=== PATIENT | female | born 1960 | race Caucasian/White ===

== ENCOUNTER 2018-09-26 14:05 | Emergency (ER) | payer MEDICAID, SELFPAY ==
[~2018-09-26] VITALS: Ht 162.6 cm; Wt 61.0 kg
[~2018-09-26 14:05] MED LIST: CHLO25CA10 PO; FLUO15OI15 TP; MACROBID PO; NITR-60 PO; NO HOME MEDS; PHEN-786 PO
[2018-09-26] MEDS ORDERED: LORazepam 1 MG tablet PO ONE (14:25)
[2018-09-26 14:57] LABS: BASOPHILS # (AUTO) 0.1 X10'3 (0-0.2); BASOPHILS % (AUTO) 0.7 % (0-1); EOSINOPHILS % (AUTO) 0 % (0-6); HEMATOCRIT 39.7 % (35.0-45.0); HEMOGLOBIN 12.7 g/dl (12.0-16.0); LYMPHOCYTES % (AUTO) 10.1 % (21-51); MEAN CORPUSCULAR HEMOGLOBIN 29.6 PG (27.0-31.0); MEAN CORPUSCULAR VOLUME 92.4 FL (78-98); MEAN PLATELET VOLUME 9.8 FL (7.4-10.4); MONOCYTES # (AUTO) 0.6 X10'3 (0-0.9); MONOCYTES % (AUTO) 6.2 % (2-12); NEUTROPHILS # (AUTO) 8.4 X10'3 (1.8-7.7); PLATELET COUNT 183 X10'3 (140-440); RED CELL DISTRIBUTION WIDTH 18.9 % (11.5-14.5); WHITE BLOOD COUNT 10.1 X10'3 (4.5-11.0)
[2018-09-26 14:58] LABS: CLARITY,URINE CLEAR (Clear); COLOR,URINE YELLOW (Yellow); GLUCOSE, URINE NEGATIVE (Neg); KETONES,URINE 15 mg/dl (Neg); LEUKOCYTE ESTERASE ,URINE NEGATIVE (Neg); NITRITES, URINE NEGATIVE (Neg); OCCULT BLOOD,URINE NEGATIVE (Neg); PH,URINE 5.5 (4.8-8.0); PROTEIN,URINE NEGATIVE (Neg); UROBILINOGEN,URINE 0.2 E.U/dL (0.2-1.0)
[2018-09-26 15:01] LABS: UA COLLECTION TYPE NON-SPECIFIED
[2018-09-26 15:12] LABS: ALANINE AMINOTRANSFERASE 28 U/L (12-78); ALBUMIN 3.5 G/DL (3.4-5.0); ALBUMIN/GLOBULIN RATIO 1.1 (1.1-1.5); ALKALINE PHOSPHATASE 88 IU/L (46-116); ANION GAP 19 (8-16); ASPARTATE AMINO TRANSFERASE 67 U/L (10-37); BILIRUBIN,TOTAL 0.4 MG/DL (0.1-1.0); BLOOD UREA NITROGEN 15 MG/DL (7-18); BUN/CREATININE RATIO 16.7 (6.6-38.0); CALCIUM 8.4 MG/DL (8.5-10.1); CHLORIDE 100 MMOL/L (99-107); ETHANOL 0.103 GM/DL (0.0-0.010); POTASSIUM 3.6 MMOL/L (3.5-5.1); SODIUM 138 MMOL/L (135-145); TOTAL CARBON DIOXIDE 19.5 MMOL/L (24-32); TOTAL PROTEIN 6.6 G/DL (6.4-8.2); eGFR 64 ML/MIN
[2018-09-26 15:12] LABS: URINE AMPHETAMINE SCREEN NEGATIVE (Neg); URINE BARBITUATE SCREEN NEGATIVE (Neg); URINE BENZODIAZEPINES SCREEN NEGATIVE (Neg); URINE CANNABINOID SCREEN NEGATIVE (Neg); URINE COCAINE SCREEN NEGATIVE (Neg); URINE METHADONE SCREEN NEGATIVE (Neg); URINE OPIATE SCREEN NEGATIVE (Neg); URINE PHENCYCLIDINE SCREEN NEGATIVE (Neg)
[2018-09-26 15:14] LABS: GLUCOSE 39 MG/DL (70-104)
--- NOTE | 2018-09-26 15:17 | NUR ---
PT BG 39, PT GIVEN SANDWICH AND ORANGE JUICE PER DR DIAL.
[2018-09-26 16:22] VITALS: BP 131/84
== END 2018-09-26 16:25 | disposition home or self-care (01) ==
LOC: ER 14:06
DX: E16.2 Hypoglycemia, unspecified (principal); F10.920 Alcohol use, unspecified with intoxication, uncomplicated; G62.9 Polyneuropathy, unspecified; R56.9 Unspecified convulsions; G89.29 Other chronic pain; Z90.710 Acquired absence of both cervix and uterus; Z98.890 Other specified postprocedural states; Z60.2 Problems related to living alone; Z56.0 Unemployment, unspecified; Z59.0 Homelessness; Z88.0 Allergy status to penicillin; Z88.2 Allergy status to sulfonamides; Z88.8 Allergy status to other drugs, medicaments and biological substances; Z79.899 Other long term (current) drug therapy; Y90.0 Blood alcohol level of less than 20 mg/100 ml
CPT/HCPCS: 36415; 80053; 80305; 80320; 81003; 82948; 85025; 99283

== ENCOUNTER 2018-10-19 22:32 | Emergency (ER) | payer MEDICAID ==
[~2018-10-19] VITALS: Ht 162.6 cm; Wt 63.0 kg
--- NOTE | 2018-10-19 23:09 | NUR ---
Patient slurring words, has been drinking doesn't want to answer questions.
[2018-10-19] MEDS ORDERED: normal saline 1000ML IV soln IVB ONE (23:20)
[2018-10-19 23:30] VITALS: BP 106/63
[2018-10-19 23:45] LABS: HEMOGLOBIN 14.1 g/dl (12.0-16.0); MEAN CORPUSCULAR VOLUME 92.8 FL (78-98); MEAN PLATELET VOLUME 10.2 FL (7.4-10.4)
[2018-10-19 23:47] LABS: ALBUMIN 3.1 G/DL (3.4-5.0); ANION GAP 19 (8-16); BILIRUBIN,TOTAL 0.3 MG/DL (0.1-1.0); BLOOD UREA NITROGEN 11 MG/DL (7-18); BUN/CREATININE RATIO 16.2 (6.6-38.0); CALCIUM 7.9 MG/DL (8.5-10.1); CHLORIDE 106 MMOL/L (99-107); CREATININE 0.68 MG/DL (0.40-0.90); GLUCOSE 85 MG/DL (70-104); HEMATOCRIT 43.7 % (35.0-45.0); MEAN CORPUSCULAR HGB CONC 32.3 g/dL (33.0-36.5); PLATELET COUNT 162 X10'3 (140-440); POTASSIUM 3.2 MMOL/L (3.5-5.1); RED BLOOD COUNT 4.71 X10'6 (4.20-5.60); RED CELL DISTRIBUTION WIDTH 20.1 % (11.5-14.5); SODIUM 149 MMOL/L (135-145); TOTAL CARBON DIOXIDE 24.4 MMOL/L (24-32); TOTAL PROTEIN 6.4 G/DL (6.4-8.2); WHITE BLOOD COUNT 6.9 X10'3 (4.5-11.0); eGFR 89 ML/MIN
[2018-10-19 23:48] LABS: ALANINE AMINOTRANSFERASE 47 U/L (12-78); ALBUMIN/GLOBULIN RATIO 0.9 (1.1-1.5); ALKALINE PHOSPHATASE 102 IU/L (46-116); ASPARTATE AMINO TRANSFERASE 42 U/L (10-37)
[2018-10-19 23:50] LABS: ETHANOL 0.332 GM/DL (0.0-0.010)
[2018-10-19] MEDS ORDERED: potassium Cl 20 mEq SR tablet PO STA (23:54)
--- NOTE | 2018-10-20 | NUR ---
Patient more alert, less hostile. Started IV and fluid infusion.
[2018-10-20 00:05] LABS: TOTAL CELLS COUNTED 100
[2018-10-20 00:06] LABS: ANISOCYTOSIS 3+; PLATELET ESTIMATE NORMAL
[2018-10-20] MEDS ORDERED: ondansetron 4mg rapidly disintigrating tab PO ONE (00:20)
--- NOTE | 2018-10-20 00:44 | NUR ---
Patient refusing to gait check with me, she is mad that she is being discharged as she is homeless. Says she has a restraining order with [facility] against and we have to honor it. I told her ok the taxi [facility] or [facility]. She will not get out of bed, JLOYNN Baldwin is aware. Security standby will be ordered.
== END 2018-10-20 00:54 | disposition home or self-care (01) ==
LOC: ER 22:32
DX: F10.129 Alcohol abuse with intoxication, unspecified (principal); R45.851 Suicidal ideations; G62.1 Alcoholic polyneuropathy; G89.29 Other chronic pain; F41.9 Anxiety disorder, unspecified; Z86.69 Personal history of other diseases of the nervous system and sense organs; Z90.710 Acquired absence of both cervix and uterus; Z98.890 Other specified postprocedural states; Z56.0 Unemployment, unspecified; Z60.2 Problems related to living alone; Z59.0 Homelessness; Z88.0 Allergy status to penicillin; Z88.2 Allergy status to sulfonamides; Z88.8 Allergy status to other drugs, medicaments and biological substances; Z79.899 Other long term (current) drug therapy; Y90.0 Blood alcohol level of less than 20 mg/100 ml
CPT/HCPCS: 36415; 80053; 80320; 85025; 99284; J2405; J7030

== ENCOUNTER 2018-11-10 13:38 | Emergency (ER) | payer MEDICAID ==
[~2018-11-10] VITALS: Ht 160 cm; Wt 13.6 kg
[2018-11-10 13:46] VITALS: BP 109/53
--- NOTE | 2018-11-10 14:41 | NUR ---
pt able to ambulate around the unit independently
[2018-11-10] MEDS ORDERED: GABA-532 PO (15:06)
[2018-11-10] MEDS ORDERED: LEVE750T6 PO (15:07)
--- NOTE | 2018-11-10 15:43 | NUR ---
PT WALKED TO BATHROOM, STOOD AND WALKED INDEPENDENTLY WITH PATRIA JORGENSEN STANDBY ASSIST, PT IS A LITTLE UNSTEADY, PT WAITING FOR [facility] MEDICATIONS TO BE FILLED. AND THEN TO GO TO [facility] FOR DETOX
== END 2018-11-10 16:27 | disposition home or self-care (01) ==
LOC: ER 13:38
DX: F10.99 Alcohol use, unspecified with unspecified alcohol-induced disorder (principal); R47.81 Slurred speech; G62.9 Polyneuropathy, unspecified; G89.29 Other chronic pain; Z86.69 Personal history of other diseases of the nervous system and sense organs; Z90.710 Acquired absence of both cervix and uterus; Z98.890 Other specified postprocedural states; Z60.2 Problems related to living alone; Z59.0 Homelessness; Z56.0 Unemployment, unspecified; Z88.0 Allergy status to penicillin; Z88.2 Allergy status to sulfonamides; Z88.8 Allergy status to other drugs, medicaments and biological substances; Z79.899 Other long term (current) drug therapy; Y90.9 Presence of alcohol in blood, level not specified
CPT/HCPCS: 99283

== ENCOUNTER 2019-01-03 08:43 | Emergency (ER) | payer MEDICAID ==
[~2019-01-03] VITALS: Ht 162.6 cm; Wt 70.0 kg
[~2019-01-03 08:43] MED LIST changes: +GABA-532 PO; +LEVE750T6 PO
[2019-01-03] MEDS ORDERED: normal saline 1000ML IV soln IV ONE (08:55)
[2019-01-03] MEDS ORDERED: magnesium 2GM in 50ml NS 50 ML IV ONE (08:55)
[2019-01-03] MEDS ORDERED: LORazepam 2 mg/ml vial IV ONE (08:55)
[2019-01-03] MEDS ORDERED: folic acid 1mg/0.2ml inj IV ONE (08:55)
[2019-01-03] MEDS ORDERED: thiamine 100mg/ml 2ml inj. IV ONE (08:55)
[2019-01-03] MEDS ORDERED: ondansetron/PF 4mg/2ml inj IV ONE (08:55)
[2019-01-03 09:44] LABS: ALANINE AMINOTRANSFERASE 18 U/L (12-78); ALBUMIN 3.7 G/DL (3.4-5.0); ALBUMIN/GLOBULIN RATIO 1.2 (1.1-1.5); ALKALINE PHOSPHATASE 111 IU/L (46-116); ANION GAP 11 (8-16); ASPARTATE AMINO TRANSFERASE 17 U/L (10-37); BLOOD UREA NITROGEN 18 MG/DL (7-18); BUN/CREATININE RATIO 24.7 (6.6-38.0); CALCIUM 8.4 MG/DL (8.5-10.1); CHLORIDE 105 MMOL/L (99-107); CREATININE 0.73 MG/DL (0.40-0.90); ETHANOL < 0.010 GM/DL (0.0-0.010); GLUCOSE 122 MG/DL (70-104); POTASSIUM 3.8 MMOL/L (3.5-5.1); SODIUM 143 MMOL/L (135-145); TOTAL CARBON DIOXIDE 26.9 MMOL/L (24-32); TOTAL PROTEIN 6.9 G/DL (6.4-8.2); eGFR 82 ML/MIN
[2019-01-03 09:46] LABS: EOSINOPHILS # (AUTO) 0.2 X10'3 (0-0.9); HEMOGLOBIN 13.1 g/dl (12.0-16.0); LYMPHOCYTES # (AUTO) 1.6 X10'3 (1.1-4.8); NEUTROPHILS # (AUTO) 3.8 X10'3 (1.8-7.7)
[2019-01-03 10:13] LABS: HEMATOCRIT 39.3 % (35.0-45.0); MEAN CORPUSCULAR HEMOGLOBIN 29.7 PG (27.0-31.0); MEAN CORPUSCULAR HGB CONC 33.3 g/dL (33.0-36.5); PLATELET COUNT 169 X10'3 (140-440); RED BLOOD COUNT 4.42 X10'6 (4.20-5.60); RED CELL DISTRIBUTION WIDTH 17.2 % (11.5-14.5); WHITE BLOOD COUNT 5.9 X10'3 (4.5-11.0)
[2019-01-03 10:14] LABS: BASOPHILS # (AUTO) 0.1 X10'3 (0-0.2); BASOPHILS % (AUTO) 2.3 % (0-1); EOSINOPHILS % (AUTO) 2.7 % (0-6); LYMPHOCYTES % (AUTO) 26.8 % (21-51); MEAN PLATELET VOLUME 10.1 FL (7.4-10.4); MONOCYTES # (AUTO) 0.3 X10'3 (0-0.9); NEUTROPHILS % (AUTO) 63.2 % (42-75)
[2019-01-03 10:31] LABS: ANISOCYTOSIS 1+; PLATELET ESTIMATE NORMAL; TOTAL CELLS COUNTED 100
[2019-01-03] MEDS ORDERED: ONDA4TAB6 PO (10:37)
[2019-01-03 11:02] VITALS: BP 160/93
== END 2019-01-03 12:52 | disposition home or self-care (01) ==
LOC: ER 08:44
DX: F10.99 Alcohol use, unspecified with unspecified alcohol-induced disorder (principal); R11.2 Nausea with vomiting, unspecified; R53.1 Weakness; G62.9 Polyneuropathy, unspecified; Z87.11 Personal history of peptic ulcer disease; G89.29 Other chronic pain; Z90.710 Acquired absence of both cervix and uterus; Z98.890 Other specified postprocedural states; Z56.0 Unemployment, unspecified; Z59.0 Homelessness; Z88.0 Allergy status to penicillin; Z88.2 Allergy status to sulfonamides; Z88.8 Allergy status to other drugs, medicaments and biological substances; Z79.899 Other long term (current) drug therapy
CPT/HCPCS: 36415; 70450; 71045; 80053; 80320; 82140; 85025; 85610; 93005; 96365; 96375; 99284; J2060; J2405; J3411; J3475; J3490; J7030

== ENCOUNTER 2019-01-13 13:37 | Emergency (ER) | payer MEDICAID ==
[~2019-01-13] VITALS: Ht 162.6 cm; Wt 61.0 kg
[~2019-01-13 13:37] MED LIST changes: +ONDA4TAB6 PO
--- NOTE | 2019-01-13 13:50 | NUR ---
Pt. admitted to [facility] brought in by [employer] [facility] on 5150 after pt. came in intoxicated and stating she was suicidal with plan to OD on medication. Pt. smells strongly of ETOH. Labs, urnine, and diet ordered for pt. Pt. reports that she had previously been in [place] for substance abuse treatment and that while she was in sober living she had trouble with her roommates and left. Pt. is focused on discharged and getting back to [place] for substance abuse treatment. Addendum: 01/13/19 at 1800 by KRISTIAN Pt. is calm and cooperative. A&Ox4. VSS.
[2019-01-13 14:40] LABS: CLARITY,URINE CLEAR (Clear); COLOR,URINE YELLOW (Yellow); GLUCOSE, URINE NEGATIVE (Neg); KETONES,URINE NEGATIVE (Neg); LEUKOCYTE ESTERASE ,URINE NEGATIVE (Neg); NITRITES, URINE NEGATIVE (Neg); OCCULT BLOOD,URINE NEGATIVE (Neg); PROTEIN,URINE NEGATIVE (Neg); URINE HCG NEGATIVE (NEG)
[2019-01-13 14:40] LABS: BASOPHILS # (AUTO) 0.2 X10'3 (0-0.2); EOSINOPHILS # (AUTO) 0.1 X10'3 (0-0.9); HEMATOCRIT 34.3 % (35.0-45.0); NEUTROPHILS # (AUTO) 3.4 X10'3 (1.8-7.7); PLATELET COUNT 189 X10'3 (140-440); WHITE BLOOD COUNT 6.4 X10'3 (4.5-11.0)
[2019-01-13 14:42] LABS: UA COLLECTION TYPE CLN CATCH MIDSTREAM
[2019-01-13 14:42] LABS: BASOPHILS % (AUTO) 3.1 % (0-1); EOSINOPHILS % (AUTO) 1.7 % (0-6); HEMOGLOBIN 11.5 g/dl (12.0-16.0); LYMPHOCYTES # (AUTO) 2.3 X10'3 (1.1-4.8); LYMPHOCYTES % (AUTO) 35.4 % (21-51); MEAN CORPUSCULAR HEMOGLOBIN 29.7 PG (27.0-31.0); MEAN CORPUSCULAR HGB CONC 33.5 g/dL (33.0-36.5); MEAN CORPUSCULAR VOLUME 88.6 FL (78-98); MEAN PLATELET VOLUME 9.7 FL (7.4-10.4); MONOCYTES # (AUTO) 0.4 X10'3 (0-0.9); NEUTROPHILS % (AUTO) 52.8 % (42-75); RED BLOOD COUNT 3.87 X10'6 (4.20-5.60); RED CELL DISTRIBUTION WIDTH 18.3 % (11.5-14.5)
[2019-01-13 14:49] LABS: URINE AMPHETAMINE SCREEN NEGATIVE (Neg); URINE BARBITUATE SCREEN NEGATIVE (Neg); URINE BENZODIAZEPINES SCREEN POSITIVE (Neg); URINE CANNABINOID SCREEN NEGATIVE (Neg); URINE COCAINE SCREEN NEGATIVE (Neg); URINE METHADONE SCREEN NEGATIVE (Neg); URINE OPIATE SCREEN NEGATIVE (Neg); URINE PHENCYCLIDINE SCREEN NEGATIVE (Neg)
[2019-01-13 15:01] LABS: ALANINE AMINOTRANSFERASE 22 U/L (12-78); ALBUMIN 3.1 G/DL (3.4-5.0); ALBUMIN/GLOBULIN RATIO 1.1 (1.1-1.5); ALKALINE PHOSPHATASE 110 IU/L (46-116); ANION GAP 9 (8-16); ASPARTATE AMINO TRANSFERASE 25 U/L (10-37); BILIRUBIN,TOTAL 0.5 MG/DL (0.1-1.0); BLOOD UREA NITROGEN 8 MG/DL (7-18); BUN/CREATININE RATIO 12.1 (6.6-38.0); CALCIUM 7.9 MG/DL (8.5-10.1); CHLORIDE 111 MMOL/L (99-107); CREATININE 0.66 MG/DL (0.40-0.90); ETHANOL 0.224 GM/DL (0.0-0.010); GLUCOSE 108 MG/DL (70-104); SODIUM 150 MMOL/L (135-145); TOTAL CARBON DIOXIDE 29.6 MMOL/L (24-32); TOTAL PROTEIN 5.8 G/DL (6.4-8.2); eGFR > 90 ML/MIN
[2019-01-13] MEDS ORDERED: PANT-47 PO (15:01)
[2019-01-13] MEDS ORDERED: CITA20TA28 PO (15:01)
[2019-01-13] MEDS ORDERED: potassium Cl 20 mEq SR tablet PO STA (15:06)
[2019-01-13 15:10] LABS: ANISOCYTOSIS 2+; PLATELET ESTIMATE NORMAL
--- NOTE | 2019-01-13 15:15 | NUR ---
RN received critical lab result, K+ of 3.0 and reported it to pt.'s provider. Pt. given K-Dur tab 40meq
[2019-01-13] MEDS ORDERED: GABA800T11 PO (15:47)
[2019-01-13] MEDS ORDERED: MELO-102 PO ×2 (15:54→16:16)
--- NOTE | 2019-01-13 16:00 | NUR ---
Pt. sleeping, breathing with normal rate and rythm.
[2019-01-13] MEDS ORDERED: NALT50TA PO (16:14)
[2019-01-13] MEDS ORDERED: ERGO500056 PO (16:14)
[2019-01-13] MEDS ORDERED: BUSP10TA11 PO (16:14)
[2019-01-13] MEDS ORDERED: LEVE750T6 PO (16:30)
--- NOTE | 2019-01-13 16:30 | NUR ---
RN received order for q1hr vitals from Dr. Harvey and to monitor for S&S of withdrawal. specifically to monitor patient for increased HR.
[2019-01-13] MEDS ORDERED: MELOXICAM 15 MG TAB PO PRN (17:05)
[2019-01-13] MEDS: CITALOpram 10mg tablet PO SCH (17:31)
--- NOTE | 2019-01-13 18:00 | NUR ---
Pt. awake to use the bathroom. Pt. requesting medication for sleep as well as nausea. Pt. asks, "I'm not going to stay here for 72 hours am I?" RN informed pt. of need to montior for S&S of withdrawal. Pt.'s HR 94. Pt. assessed for withdrawal, pt. has no tremors, no diaphoresis, pt. denies audio visual hallucinations. Pt. reports SI without a plan, pt. states, "I don't want to be alive". Pt. appears depressed.
--- NOTE | 2019-01-13 18:30 | NUR ---
Assumed care from JOSLYN Chapin. Patient is awake, cooperative, and well oriented. Affect is flat. Patient complains of depression and suicidal ideation. Patients voice is quiet. The rate is normal with a regular rhythm. This patient complains of suicidal ideation with a plan to overdose. Patient denies homicidal ideation. Patient has a history of seizures with uncontrolled alcohol withdraw. Plan to utelize ativan a needed. This grant writer will consult with ER .
--- NOTE | 2019-01-13 19:20 | NUR ---
Patient has eaten her full meal. She is resting quietly, some anxiety present. Q15 minute roundings are being done for patient safety. Patient bed is in full view from the nursing station. The patient is advised by this internal communications writer that she is in a safe place.
[2019-01-13] MEDS ORDERED: LORazepam 1 MG tablet PO ONE (21:15)
[2019-01-13] MEDS: busPIRone 5mg tablet PO SCH (21:39)
[2019-01-13] MEDS: gabapentin 400mg capsule PO SCH (21:39)
[2019-01-13] MEDS: levetiracetam 250mg tablet PO SCH (21:39)
--- NOTE | 2019-01-13 22:00 | NUR ---
Patient is sleeping quietly. Ativan was given for anxiety and prevention of alcohol withdrawl. Patient is medication compliant.
--- NOTE | 2019-01-13 23:20 | NUR ---
Patient is sleeping quietly.
--- NOTE | 2019-01-14 03:11 | NUR ---
Patient is up, ambulates to bathroom to void. Returns to bed to sleep.
--- NOTE | 2019-01-14 05:36 | NUR ---
Patient is sleeping quietly in view from the nursing station.
--- NOTE | 2019-01-14 07:00 | NUR ---
Pt. asleep in bed. Pt. has normal rate and rhythm of respirations.
[2019-01-14] MEDS ORDERED: naltrexone 50mg tablet PO SCH (08:00)
[2019-01-14] MEDS ORDERED: pantoprazole 40mg Tablet.DR PO SCH (08:00)
[2019-01-14] MEDS: busPIRone 5mg tablet PO SCH (08:54)
[2019-01-14] MEDS: CITALOpram 10mg tablet PO SCH (08:54)
[2019-01-14] MEDS: levetiracetam 250mg tablet PO SCH (08:55)
[2019-01-14] MEDS: gabapentin 400mg capsule PO SCH (08:55)
--- NOTE | 2019-01-14 09:00 | NUR ---
Pt. awake in bed and speaking with social service manager regarding discharge plans. Pt. ate breakfast and took medications. Pt. is A&Ox4. Pt. denies SI/HI, A/V H. Pt. is cooperative, sitting in bed. Pt. has slight tremors in hands, pt. also reports increased anxiety otherwise no S&S of etoh withdrawal.
[2019-01-14] MEDS ORDERED: LORazepam 1 MG tablet PO PRN (10:25)
--- NOTE | 2019-01-14 11:00 | NUR ---
Pt. awake and reading in her bed. Pt. reports she feels slightly less anxious after receiving ativan 1mg po. Pt. is hoping to be discharged to [place] to start substance abuse treatment.
--- NOTE | 2019-01-14 12:45 | NUR ---
Pt. discharged to [facility] to begin substance abuse treatment. Pt. picked up by [employer] truck driver David Botello. Pt. denies SI/HI, A/V H. Pt. is A&Ox4. Pt. calm and cooperative and in no apparent psychological or emotional distress. Pt. denies ETOH cravings. RN discussed F/U care with pt. and pt. verbalizes understanding. Pt. received all belongings.
[2019-01-14 12:51] VITALS: BP 113/99
[2019-01-14] MEDS ORDERED: traZODone 50mg tablet PO SCH (20:00)
[2019-01-15] MEDS ORDERED: vitamin D (cholecalciferol) 1,000 unit tablet PO SCH (08:00)
== END 2019-01-14 13:00 | disposition home or self-care (01) ==
LOC: ER 13:38
DX: F32.9 Major depressive disorder, single episode, unspecified (principal); F10.129 Alcohol abuse with intoxication, unspecified; E87.0 Hyperosmolality and hypernatremia; E87.6 Hypokalemia; G89.29 Other chronic pain; Z90.710 Acquired absence of both cervix and uterus; Z98.890 Other specified postprocedural states; Z88.0 Allergy status to penicillin; Z88.2 Allergy status to sulfonamides; Z88.8 Allergy status to other drugs, medicaments and biological substances; Z79.899 Other long term (current) drug therapy; Z56.0 Unemployment, unspecified; Z59.0 Homelessness; Z60.2 Problems related to living alone
CPT/HCPCS: 36415; 80053; 80305; 80320; 81003; 81025; 84443; 85025; 99285

== ENCOUNTER 2019-01-15 14:06 | Emergency (ER) | payer MEDICAID ==
[~2019-01-15] VITALS: Ht 162.6 cm; Wt 60.0 kg
[~2019-01-15 14:06] MED LIST changes: +BUSP10TA11 PO; -CHLO25CA10 PO; +CITA20TA28 PO; +ERGO500056 PO; -FLUO15OI15 TP; -GABA-532 PO; +GABA800T11 PO; -MACROBID PO; +MELO-102 PO; +NALT50TA PO; -NITR-60 PO; -NO HOME MEDS; -ONDA4TAB6 PO; +PANT-47 PO; -PHEN-786 PO
--- NOTE | 2019-01-15 14:30 | NUR ---
Assumed care of pt. Resting in [facility]. Intoxicated but responding approp. Under close observation of nursing station. Will continue to monitor.
--- NOTE | 2019-01-15 15:20 | NUR ---
Dr. Peterson states okay for pt to eat. [place] and crackers given with pitcher of water.
[2019-01-15 15:32] LABS: MEAN PLATELET VOLUME 9.7 FL (7.4-10.4); WHITE BLOOD COUNT 5.3 X10'3 (4.5-11.0)
[2019-01-15 15:33] LABS: ALANINE AMINOTRANSFERASE 21 U/L (12-78); ALBUMIN 2.9 G/DL (3.4-5.0); ALBUMIN/GLOBULIN RATIO 1.1 (1.1-1.5); ALKALINE PHOSPHATASE 118 IU/L (46-116); ANION GAP 8 (8-16); ASPARTATE AMINO TRANSFERASE 23 U/L (10-37); BILIRUBIN,TOTAL 0.3 MG/DL (0.1-1.0); BLOOD UREA NITROGEN 5 MG/DL (7-18); BUN/CREATININE RATIO 7.5 (6.6-38.0); CALCIUM 7.5 MG/DL (8.5-10.1); CHLORIDE 114 MMOL/L (99-107); CREATININE 0.67 MG/DL (0.40-0.90); GLUCOSE 89 MG/DL (70-104); POTASSIUM 3.6 MMOL/L (3.5-5.1); SODIUM 151 MMOL/L (135-145); TOTAL CARBON DIOXIDE 28.6 MMOL/L (24-32); TOTAL PROTEIN 5.6 G/DL (6.4-8.2); eGFR 90 ML/MIN
[2019-01-15 15:35] LABS: HEMATOCRIT 35.7 % (35.0-45.0); HEMOGLOBIN 11.7 g/dl (12.0-16.0); MEAN CORPUSCULAR HEMOGLOBIN 29.8 PG (27.0-31.0); MEAN CORPUSCULAR HGB CONC 32.8 g/dL (33.0-36.5); PLATELET COUNT 183 X10'3 (140-440); RED BLOOD COUNT 3.93 X10'6 (4.20-5.60); RED CELL DISTRIBUTION WIDTH 18.6 % (11.5-14.5)
[2019-01-15] MEDS ORDERED: MELOXICAM 15 MG PO PRN (15:35)
[2019-01-15] MEDS ORDERED: normal saline 1000ML IV soln IV ONE (15:40)
[2019-01-15 15:41] LABS: ETHANOL 0.247 GM/DL (0.0-0.010)
[2019-01-15 16:10] LABS: TOTAL CELLS COUNTED 100
[2019-01-15 16:12] LABS: ANISOCYTOSIS 2+; PLATELET ESTIMATE NORMAL; POLYCHROMASIA 1+
[2019-01-15 16:12] LABS: URINE AMPHETAMINE SCREEN NEGATIVE (Neg); URINE BARBITUATE SCREEN NEGATIVE (Neg); URINE BENZODIAZEPINES SCREEN POSITIVE (Neg); URINE CANNABINOID SCREEN NEGATIVE (Neg); URINE COCAINE SCREEN NEGATIVE (Neg); URINE METHADONE SCREEN NEGATIVE (Neg); URINE OPIATE SCREEN NEGATIVE (Neg); URINE PHENCYCLIDINE SCREEN NEGATIVE (Neg)
--- NOTE | 2019-01-15 16:44 | NUR ---
PACKET FAXED TO [facility]
--- NOTE | 2019-01-15 17:04 | NUR ---
Pt escorted to OF 22 without incident.
--- NOTE | 2019-01-15 17:11 | NUR ---
Pt resting comfortably in bed 22 in no apparent distress.
--- NOTE | 2019-01-15 17:50 | NUR ---
Pt is wanting to go back to [facility]
--- NOTE | 2019-01-15 17:57 | NUR ---
Client asleep on right side in no apparent distress. Respirations are even.
[2019-01-15] MEDS: levetiracetam 250mg tablet PO SCH (19:25)
[2019-01-15] MEDS: gabapentin 400mg capsule PO SCH (19:25)
[2019-01-15] MEDS: busPIRone 5mg tablet PO SCH (19:25)
--- NOTE | 2019-01-16 06:29 | NUR ---
Assumed care of client. Client asleep on right side in no apparent distress. Respirations are even and unlabored.
[2019-01-16] MEDS: naltrexone 50mg tablet PO SCH ×2 (08:00→08:32)
[2019-01-16] MEDS ORDERED: CITALOpram 10mg tablet PO SCH (08:00)
[2019-01-16] MEDS ORDERED: vitamin D (cholecalciferol) 1,000 unit tablet PO SCH (08:00)
[2019-01-16] MEDS ORDERED: pantoprazole 40mg Tablet.DR PO SCH (08:00)
[2019-01-16] MEDS: levetiracetam 250mg tablet PO SCH (08:16)
[2019-01-16] MEDS: gabapentin 400mg capsule PO SCH (08:16)
[2019-01-16] MEDS: busPIRone 5mg tablet PO SCH (08:16)
--- NOTE | 2019-01-16 08:38 | NUR ---
Client able to eat 75% of breakfast. She is in good spirits. She is still suicidal with no plan currently. She is anxious to go to [place]. She has been there before on a jagr[facility] bed. She says she has had seizures duruing alcohol withdrawal in the past. Will continue to monitor vitals hourly.
--- NOTE | 2019-01-16 10:09 | NUR ---
Vitals have audra within normal limits. plan is to continue vitals every two to three hours [address] Dr. Man.
--- NOTE | 2019-01-16 11:14 | NUR ---
Kay from [facility] at bedside
[2019-01-16 12:22] VITALS: BP 145/56
== END 2019-01-16 12:23 | disposition home or self-care (01) ==
LOC: ER 14:06
DX: E86.0 Dehydration (principal); R45.851 Suicidal ideations; F10.920 Alcohol use, unspecified with intoxication, uncomplicated; G62.9 Polyneuropathy, unspecified; G89.29 Other chronic pain; F41.9 Anxiety disorder, unspecified; Z86.69 Personal history of other diseases of the nervous system and sense organs; Z90.710 Acquired absence of both cervix and uterus; Z98.890 Other specified postprocedural states; Z60.2 Problems related to living alone; Z59.0 Homelessness; Z56.0 Unemployment, unspecified; Z88.0 Allergy status to penicillin; Z88.2 Allergy status to sulfonamides; Z88.8 Allergy status to other drugs, medicaments and biological substances; Z79.899 Other long term (current) drug therapy; Y90.0 Blood alcohol level of less than 20 mg/100 ml
CPT/HCPCS: 80053; 80305; 80320; 84443; 85025; 99285; J7030

== ENCOUNTER 2019-01-17 14:53 | Emergency (ER) | payer MEDICAID ==
[~2019-01-17] VITALS: Ht 157.5 cm; Wt 61.4 kg
[2019-01-17 17:43] LABS: EOSINOPHILS # (AUTO) 0.1 X10'3 (0-0.9); HEMOGLOBIN 11.4 g/dl (12.0-16.0); MONOCYTES # (AUTO) 0.4 X10'3 (0-0.9)
[2019-01-17 17:44] LABS: BASOPHILS # (AUTO) 0.1 X10'3 (0-0.2); BASOPHILS % (AUTO) 2.7 % (0-1); EOSINOPHILS % (AUTO) 1.8 % (0-6); HEMATOCRIT 34.6 % (35.0-45.0); LYMPHOCYTES % (AUTO) 38.5 % (21-51); MEAN CORPUSCULAR HEMOGLOBIN 29.9 PG (27.0-31.0); MEAN CORPUSCULAR HGB CONC 32.9 g/dL (33.0-36.5); MEAN CORPUSCULAR VOLUME 90.9 FL (78-98); MEAN PLATELET VOLUME 9.4 FL (7.4-10.4); MONOCYTES % (AUTO) 6.8 % (2-12); NEUTROPHILS # (AUTO) 2.7 X10'3 (1.8-7.7); NEUTROPHILS % (AUTO) 50.2 % (42-75); PLATELET COUNT 172 X10'3 (140-440); RED BLOOD COUNT 3.81 X10'6 (4.20-5.60); RED CELL DISTRIBUTION WIDTH 19.5 % (11.5-14.5); WHITE BLOOD COUNT 5.3 X10'3 (4.5-11.0)
[2019-01-17 17:55] LABS: ALANINE AMINOTRANSFERASE 26 U/L (12-78); ALBUMIN 2.9 G/DL (3.4-5.0); ALKALINE PHOSPHATASE 149 IU/L (46-116); ANION GAP 10 (8-16); ASPARTATE AMINO TRANSFERASE 26 U/L (10-37); BILIRUBIN,TOTAL 0.3 MG/DL (0.1-1.0); BLOOD UREA NITROGEN 9 MG/DL (7-18); BUN/CREATININE RATIO 13.4 (6.6-38.0); CALCIUM 7.8 MG/DL (8.5-10.1); CHLORIDE 113 MMOL/L (99-107); CREATININE 0.67 MG/DL (0.40-0.90); ETHANOL 0.276 GM/DL (0.0-0.010); GLUCOSE 99 MG/DL (70-104); POTASSIUM 3.2 MMOL/L (3.5-5.1); SODIUM 151 MMOL/L (135-145); TOTAL PROTEIN 5.8 G/DL (6.4-8.2); eGFR 90 ML/MIN
[2019-01-17 18:17] LABS: TOTAL CELLS COUNTED 200
[2019-01-17 18:18] LABS: ANISOCYTOSIS 2+; PLATELET ESTIMATE NORMAL
[2019-01-17 18:19] LABS: POLYCHROMASIA FEW; SMUDGE CELLS FEW
--- NOTE | 2019-01-17 18:45 | NUR ---
The patient ambulated from ER to bed 23 overflow, accompanied by PCT and security. The patient is intoxicated but stable. Care assumed. She is placed in green scrubs and went right to sleep.
--- NOTE | 2019-01-17 20:30 | NUR ---
The patient is lying in the supine position with her eyes closed. Breathing is easy and unlabored. No s/s of distress.
--- NOTE | 2019-01-17 22:01 | NUR ---
The patient is awake and up to BR. The patient will provide urine sample for the lab.
[2019-01-17] MEDS ORDERED: MELOXICAM PO PRN (22:25)
[2019-01-17 22:28] LABS: CLARITY,URINE CLEAR (Clear); COLOR,URINE YELLOW (Yellow); GLUCOSE, URINE NEGATIVE (Neg); KETONES,URINE NEGATIVE (Neg); LEUKOCYTE ESTERASE ,URINE NEGATIVE (Neg); NITRITES, URINE NEGATIVE (Neg); OCCULT BLOOD,URINE NEGATIVE (Neg); PROTEIN,URINE NEGATIVE (Neg); UROBILINOGEN,URINE 0.2 E.U/dL (0.2-1.0)
[2019-01-17 22:29] LABS: UA COLLECTION TYPE CLN CATCH MIDSTREAM
[2019-01-17 22:34] LABS: URINE AMPHETAMINE SCREEN NEGATIVE (Neg); URINE BARBITUATE SCREEN NEGATIVE (Neg); URINE BENZODIAZEPINES SCREEN POSITIVE (Neg); URINE CANNABINOID SCREEN NEGATIVE (Neg); URINE COCAINE SCREEN NEGATIVE (Neg); URINE METHADONE SCREEN NEGATIVE (Neg); URINE OPIATE SCREEN NEGATIVE (Neg); URINE PHENCYCLIDINE SCREEN NEGATIVE (Neg)
--- NOTE | 2019-01-18 00:44 | NUR ---
The patient is sleeping in supine position. Breathing is easy and unlabored. No s/s of distress.
--- NOTE | 2019-01-18 02:00 | NUR ---
The patient is lying on her right side with her eyes closed. Breathing even and unlabored. No s/s of distress.
--- NOTE | 2019-01-18 03:28 | NUR ---
The patient is sleeping on her right side. Breathing even and unlabored. No s/s of distress.
--- NOTE | 2019-01-18 05:14 | NUR ---
The patient continues to sleep. No s/s of distress noted.
--- NOTE | 2019-01-18 06:36 | NUR ---
Patient sleeping supine. No distress observed. Continue to monitor.
[2019-01-18] MEDS: vitamin D (cholecalciferol) 1,000 unit tablet PO SCH (08:15)
[2019-01-18] MEDS: levetiracetam 250mg tablet PO SCH ×2 (08:15→20:04)
[2019-01-18] MEDS: CITALOpram 10mg tablet PO SCH (08:15)
[2019-01-18] MEDS: pantoprazole 40mg Tablet.DR PO SCH (08:16)
[2019-01-18] MEDS: gabapentin 400mg capsule PO SCH ×2 (08:16→20:04)
[2019-01-18] MEDS: LORazepam 1 MG tablet PO PRN ×2 (08:16→20:04)
[2019-01-18] MEDS: busPIRone 5mg tablet PO SCH ×2 (08:16→20:04)
--- NOTE | 2019-01-18 08:25 | NUR ---
Patient is awake, alert. Patient states she is not doing well. RN gave patient Ativan for anxiety. Patient does not appear to be going into withdrawal. Patient still feels like she wants to . Patient wants to drink herself to . She has been depressed for a while. Patient does not have any friends or family. Patient feels helpless and hopeless. Continue to monitor.
--- NOTE | 2019-01-18 09:56 | NUR ---
PACKET FAXED TO [facility]
--- NOTE | 2019-01-18 12:40 | NUR ---
Patient reading a book. No distress observed. Continue to monitor.
--- NOTE | 2019-01-18 14:10 | NUR ---
Patient sleeping supine. No distress observed. Continue to monitor.
[2019-01-18] MEDS ORDERED: naproxen 500mg tablet PO PRN (15:14)
--- NOTE | 2019-01-18 16:03 | NUR ---
Patient sitting in room reading. No distress observed. Continue to monitor.
--- NOTE | 2019-01-18 17:20 | NUR ---
Patient reclining and reading a book. No distress observed. Continue to monitor.
--- NOTE | 2019-01-18 19:53 | NUR ---
One to one with the patient to assess severity of depressive symptoms and for alcohol withdrawals. The patient is resting on her bed reading a book. She appears comfortable and calm. She ate 100% of her evening meal. She stated that her anxiety level was currently low. She denies problems with her concentration. She denies active suicidal thoughts but states she doesn't feel safe if she were to be out of the hospital and on her own. She denies any kind of ETOH withdrawals at this time. She denies any kind of psychotic thinking and none was evident during the evening assessment. She denies craving alcohol but stated that she has been drinking since age 18 with only brief periods of sobriety. The longest period she was able to go was 3 years. She has been homeless in the [facility] since moving here one year ago. She has been in a [facility] and [facility] for short periods.
--- NOTE | 2019-01-18 21:15 | NUR ---
The patient appears to be asleep
--- NOTE | 2019-01-19 00:03 | NUR ---
The patient appears to be sleeping
--- NOTE | 2019-01-19 02:03 | NUR ---
The patient currently appears to be sleeping. She was up to use the bathroom briefly but is now back in bed.
--- NOTE | 2019-01-19 04:56 | NUR ---
The patient appears to be sleeping
[2019-01-19] MEDS: LORazepam 1 MG tablet PO PRN (05:52)
--- NOTE | 2019-01-19 06:25 | NUR ---
Patient lying on her left side with eyes closed and equal rise and fall of chest.
[2019-01-19] MEDS ORDERED: potassium Cl 20 mEq SR tablet PO STA (07:52)
[2019-01-19] MEDS: levetiracetam 250mg tablet PO SCH ×2 (08:20→20:03)
[2019-01-19] MEDS: pantoprazole 40mg Tablet.DR PO SCH (08:20)
[2019-01-19] MEDS: busPIRone 5mg tablet PO SCH ×2 (08:20→20:03)
[2019-01-19] MEDS: gabapentin 400mg capsule PO SCH ×2 (08:20→20:03)
[2019-01-19] MEDS: vitamin D (cholecalciferol) 1,000 unit tablet PO SCH (08:20)
[2019-01-19] MEDS: CITALOpram 10mg tablet PO SCH (08:20)
--- NOTE | 2019-01-19 08:20 | NUR ---
woke patient for assessment and medication pass. Patient took all medications and then ate breakfast.
--- NOTE | 2019-01-19 09:13 | NUR ---
Breaking primary RN, pt is supine in bed, eyes open looking at staff, regular breathing, no s/s of agitation observed
--- NOTE | 2019-01-19 10:00 | NUR ---
patient lying on back with eyes closed
--- NOTE | 2019-01-19 10:05 | NUR ---
Gabriela from [facility] called and stated that Dr. Arias from [facility] has accepted the patient
--- NOTE | 2019-01-19 10:25 | NUR ---
assumed care of pt she is supine in bed arm behind her head, eeyes closed, appears to be sleeping, no s/s of agitation,, will continue to monitor, she has been accepted upstairs
--- NOTE | 2019-01-19 11:25 | NUR ---
pt is supine in bed speaking with staff, no s/s of agitation observed
--- NOTE | 2019-01-19 12:25 | NUR ---
pt is supine in bed looking at staff, no s/s of anxiety
--- NOTE | 2019-01-19 13:30 | NUR ---
pt is eating her lunch, no agitation
--- NOTE | 2019-01-19 14:30 | NUR ---
pt is supine in bed, watching staff, no s/s of agitation observed
--- NOTE | 2019-01-19 15:39 | NUR ---
pt is in bed supine, wake, eyes closed, open when talked to or someone walks, by, requesting coffee, no agitation observed
--- NOTE | 2019-01-19 16:34 | NUR ---
pt is in bed supine, eyes closed, no s/s of agitation observed
--- NOTE | 2019-01-19 17:41 | NUR ---
pt is sitting on the side of her bed, no s/s of agitation, getting vitals taken, calm
--- NOTE | 2019-01-19 19:33 | NUR ---
The patient is resting on her bed and is alert and oriented. There are no s/s of ETOH withdrawals at this time. She states her mood is "alright" she denies signicant anxiety. She denies that she has been feeling suicidal today. She is wanting help with housing. [facility]
--- NOTE | 2019-01-19 19:47 | NUR ---
[facility] office made aware that the patient is no longer suicidal and they will re-evaluate in the morning
--- NOTE | 2019-01-19 21:29 | NUR ---
The patient appears to be sleeping
--- NOTE | 2019-01-19 23:45 | NUR ---
The patient appears to be sleeping
--- NOTE | 2019-01-20 01:11 | NUR ---
The patient appears to be sleeping. She periodically has gotten up to use the bathroom but then immediately returns to bed
--- NOTE | 2019-01-20 03:31 | NUR ---
The patient appears to be asleep
--- NOTE | 2019-01-20 05:35 | NUR ---
The patient is awake and was up to the bathroom. She appeared to have slept well during the night.
[2019-01-20 05:39] VITALS: BP 158/94
--- NOTE | 2019-01-20 06:35 | NUR ---
Patient sleeping supine. No distress observed. Continue to monitor.
[2019-01-20] MEDS: busPIRone 5mg tablet PO SCH (08:12)
[2019-01-20] MEDS: pantoprazole 40mg Tablet.DR PO SCH (08:12)
[2019-01-20] MEDS: gabapentin 400mg capsule PO SCH (08:12)
[2019-01-20] MEDS: CITALOpram 10mg tablet PO SCH (08:12)
[2019-01-20] MEDS: levetiracetam 250mg tablet PO SCH (08:12)
[2019-01-20] MEDS: vitamin D (cholecalciferol) 1,000 unit tablet PO SCH (08:12)
--- NOTE | 2019-01-20 08:20 | NUR ---
Patient eating breakfast. No distress observed. Continue to monitor.
--- NOTE | 2019-01-20 10:15 | NUR ---
Patient sitting up in bed and reading a book. No distress observed. Continue to monitor.
--- NOTE | 2019-01-20 12:25 | NUR ---
Patient reclining in bed with light on sleeping. No distress observed. Continue to monitor.
[2019-01-22] MEDS ORDERED: ARIP5TAB14 PO (16:16)
== END 2019-01-20 17:01 | disposition home or self-care (01) ==
LOC: ER 14:54
DX: F10.20 Alcohol dependence, uncomplicated (principal); R45.851 Suicidal ideations; G62.9 Polyneuropathy, unspecified; G89.29 Other chronic pain; Z87.11 Personal history of peptic ulcer disease; Z59.0 Homelessness; Z56.0 Unemployment, unspecified; Z90.710 Acquired absence of both cervix and uterus; Z98.890 Other specified postprocedural states; Z88.0 Allergy status to penicillin; Z88.2 Allergy status to sulfonamides; Z88.3 Allergy status to other anti-infective agents; Z79.899 Other long term (current) drug therapy; Y90.9 Presence of alcohol in blood, level not specified
CPT/HCPCS: 36415; 80053; 80305; 80320; 81003; 84443; 85025; 99285

== ENCOUNTER 2019-01-20 16:13 | Inpatient (IN) | payer MEDICAID ==
[~2019-01-20] VITALS: Ht 162.6 cm; Wt 61.4 kg
[2019-01-20] MEDS ORDERED: LORazepam 1 MG tablet PO PRN (17:15)
[2019-01-20] MEDS ORDERED: loperamide 2mg capsule PO PRN (17:15)
[2019-01-20] MEDS ORDERED: acetaminophen 325mg tablet PO PRN ×2 (17:15)
[2019-01-20] MEDS ORDERED: mag hydrox/Alum hydrox/simeth 30ml oral suspension PO PRN (17:15)
[2019-01-20] MEDS ORDERED: magnesium hydroxide 30ml (MOM) UD suspension PO PRN (17:15)
[2019-01-20] MEDS ORDERED: hydrOXYzine 25 MG tablet PO PRN (17:15)
[2019-01-20 17:44] VITALS: BP 133/86
[2019-01-20 19:00] VITALS: BP 126/78
[2019-01-20] MEDS: naproxen 500mg tablet PO SCH ×2 (19:45→20:00)
[2019-01-20] MEDS: gabapentin 400mg capsule PO SCH (20:25)
[2019-01-20] MEDS: busPIRone 5mg tablet PO SCH (20:25)
[2019-01-20] MEDS: levetiracetam 250mg tablet PO SCH (20:25)
--- NOTE | 2019-01-20 23:28 | NUR ---
Nursing Progress Note: Legal hold: 5150 Client on voluntary/involuntary status for danger to self Report received from nurse with use of SBAR[]. Why are they here: The patient is a 58 year old female admitted to [facility] for depression and suicidal thoughts. She originally presented to the ER on 01/17 reporting that she was suicidal with a plan to drink etoh excessively and take an overdose of her medications. Her BA on admit to the ER was 0.276. She has never had an intentional suicide attempt in the past. She has had one previous short psychiatric hospitalization. She currently is a patient at the [facility]. She originally came to [place] one year ago with a significant other who she has since parted ways with. She has had numerous ER visit that are ETOH related. She had a two week stay in a sober living facility but "It didn't work for me" She also has been at the [facility]. She currently is homeless and has not income. She has applied for SSI. She has had GA in the past. Her only family member in the area who is her brother who she can not stay with because he has cancer but he is emotionally supportive of her. She has chronic alcohol dependance and has been drinking since age 18. Her longest period of sobriety is 3 and 1/2 years. She denies hx of childhood abuse or trauma. Her parents when she was 11. She is wanting help with finding housing. Assessment What has happened this shift: The patient has been up on the unit and in the general patient areas. She has been cooperative with the admission process. She denies that she is experiencing any ETOH withdrawals and none were evident during the assessment. She reports mild anxiety. She denies suicidal thoughts here on the unit but unsure if she can be safe if not on the unit. She denies problems with concentration or focus. She denies problems with her appetite. S/I, H/I: Denies A/VH: Denies Sleep: Sleeping well at night ADL's: Independent Group attendance: Were meds taken: The patient is medication compliant Any med S/E none reported or observed Mental Status Exam Appearance: Appears her stated age. Clean and well groomed and wearing green hospital scrubs Eye contact: WNL Behavior: WNL. Calm, cooperative, friendly on approach, spent time quietly reading on her bed Speech: coherent, spontaneous, normal rate and rhythm Mood: Mild depression and anxiety Affect: appropriate to circumstances Thought process: logical, linear Thought Content: situational difficulties of being homeless Cognition:alert and oriented Insight: fair Judgment: fair Interventions PRN's used: Therapeutic interventions: One to one with the patient to complete the admission process. Severity of depression and self harm risk assessed. Restraints/seclusion/emergency medication:NA Justification of Continued Inpatient Treatment: The patient is at high risk for alcohol use and potentially a risk to harm herself. She needs further evaluation and stabilization to minimize risks.
[2019-01-21 07:34] LABS: CHOL/HDL RATIO 2.4 (0.00-4.99); CHOLESTEROL 276 MG/DL (0-200); HDL CHOLESTEROL 115 MG/DL (35-60); LDL CHOLESTEROL 148 MG/DL (50-100); TRIGLYCERIDES 82 MG/DL (20-135)
[2019-01-21 07:36] LABS: HEMOGLOBIN A1C 5.3 % (4.5-6.2)
[2019-01-21 08:00] VITALS: BP 127/75
[2019-01-21] MEDS ORDERED: citalopram 20mg tablet PO SCH (08:00)
[2019-01-21] MEDS: gabapentin 400mg capsule PO SCH ×2 (08:05→21:14)
[2019-01-21] MEDS: pantoprazole 40mg Tablet.DR PO SCH (08:05)
[2019-01-21] MEDS: busPIRone 5mg tablet PO SCH ×2 (08:06→21:14)
[2019-01-21] MEDS: vitamin D (cholecalciferol) 1,000 unit tablet PO SCH (08:06)
[2019-01-21] MEDS: levetiracetam 250mg tablet PO SCH ×2 (08:06→21:13)
[2019-01-21] MEDS: naproxen 500mg tablet PO SCH ×2 (08:06→21:13)
[2019-01-21] MEDS: naltrexone 50mg tablet PO SCH (08:12)
[2019-01-21] MEDS ORDERED: FLU VACC QS2019-20 36MOS UP/PF 60 MCG/0.5 ML SYRINGE IMVAC ONE (10:00)
[2019-01-21] MEDS ORDERED: tuberculin, purif. prot. deriv. 5 units/0.1ml ID ONE (10:15)
--- NOTE | 2019-01-21 17:43 | NUR ---
Nursing Progress Note: KLARISSA Legal hold: 5150 Client on voluntary/involuntary status for DTS Report received from nurse Sarah Briones RN with use of SBAR. Why are they here: The patient is a 58 year old female admitted to [facility] for depression and suicidal thoughts. She originally presented to the ER on 01/17 reporting that she was suicidal with a plan to drink etoh excessively and take an overdose of her medications. Her BA on admit to the ER was 0.276. She has never had an intentional suicide attempt in the past. She has had one previous short psychiatric hospitalization. She currently is a patient at the [facility]. She originally came to [place] one year ago with a significant other who she has since parted ways with. She has had numerous ER visit that are ETOH related. She had a two week stay in a sober living facility but "It didn't work for me" She also has been at the [facility]. She currently is homeless and has not income. She has applied for SSI. She has had GA in the past. Her only family member in the area who is her brother who she can not stay with because he has cancer but he is emotionally supportive of her. She has chronic alcohol dependance and has been drinking since age 18. Her longest period of sobriety is 3 and 1/2 years. She denies hx of childhood abuse or trauma. Her parents when she was 11. She is wanting help with finding housing. Assessment What has happened this shift: The patient was awake and watching tv at the change of shift. She is pleasant during 1:1 assessment. CIWA was started this AM. She reports feeling "OK" and denies any SE's to medications. None were objectively observed. She states that she is worried about her housing and not having any money. Reports she has done multiple rehab programs in the past. Pt is found socialzing with peers throughout the day. No concerns voiced at this time. Pt was encouraged to attend afternoon art therapy group which she denied wanting to go to. S/I, H/I: Denies A/VH: Denies Sleep: 7hrs NOC ADL's: Independent Group attendance: Yes Were meds taken: medication compliant Any med S/E none reported or observed Mental Status Exam Appearance: Clean and well groomed, wearing green hospital scrubs Eye contact: WNL Behavior: WNL. Calm, cooperative, pleasant Speech: coherent, soft, normal rate and rhythm Mood: Mild depression and some anxiety Affect: congruent to mood Thought process: logical, linear Thought Content: situational difficulties of being homeless and not having money Cognition: A & O X4 Insight: fair Judgment: fair Interventions PRN's used: N/A Therapeutic interventions: One to one with the patient to complete the admission process. Severity of depression and self harm risk assessed. Restraints/seclusion/emergency medication:NA Justification of Continued Inpatient Treatment: The patient is at high risk for alcohol use and potentially a risk to harm herself. She needs further evaluation and stabilization to minimize risks.
[2019-01-21 20:00] VITALS: BP 105/47
[2019-01-21] MEDS: traZODone 50mg tablet PO PRN (21:14)
--- NOTE | 2019-01-22 02:07 | NUR ---
Nursing Progress Note: KLARISSA Legal hold: 5150 Client on voluntary/involuntary status for DTS Report received from JOSLYN Brady with use of SBAR. Why are they here: The patient is a 58 year old female admitted to [facility] for depression and suicidal thoughts. She originally presented to the ER on 01/17 reporting that she was suicidal with a plan to drink etoh excessively and take an overdose of her medications. Her BA on admit to the ER was 0.276. She has never had an intentional suicide attempt in the past. She has had one previous short psychiatric hospitalization. She currently is a patient at the [facility]. She originally came to [place] one year ago with a significant other who she has since parted ways with. She has had numerous ER visit that are ETOH related. She had a two week stay in a sober living facility but "It didn't work for me" She also has been at the [facility]. She currently is homeless and has not income. She has applied for SSI. She has had GA in the past. Her only family member in the area who is her brother who she can not stay with because he has cancer but he is emotionally supportive of her. She has chronic alcohol dependance and has been drinking since age 18. Her longest period of sobriety is 3 and 1/2 years. She denies hx of childhood abuse or trauma. Her parents when she was 11. She is wanting help with finding housing. Assessment What has happened this shift: Patient isolating in room, she reads a book. Patient states she is depressed but that is normal. "I don't have a job or family, that is why depression sets in." Patient states it has been around three or four days since I drank alcohol. She denies H/I, S/I, or hallucinations. Patient has been eating meals and is medication compliant. The patient is advised by this comic writer that she is in a safe place. S/I, H/I: Denies A/VH: Denies Sleep: Will tally in am. ADL's: Independent Group attendance: Yes Were meds taken: Patient is medication compliant. Any med S/E None reported or observed. Mental Status Exam Appearance: Clean and well groomed, wearing green hospital scrubs Eye contact: WNL Behavior: WNL. Calm, cooperative, pleasant Speech: Quiet, normal rate and rhythm. Mood: Moderate depression and anxiety. Affect: Congruent to mood. Thought process: Linear. Thought Content: Situational difficulties of being homeless and not having money. "I have nobody in my life." Cognition: A & O X4. Insight: Fair. Judgment: Fair. Interventions PRN's used: N/A Therapeutic interventions: One to one with the patient to complete the admission process. Severity of depression and self harm risk assessed. Restraints/seclusion/emergency medication:NA Justification of Continued Inpatient Treatment: The patient is at high risk for alcohol use and potentially a risk to harm herself. She needs further evaluation and stabilization to minimize risks.
[2019-01-22 07:38] VITALS: BP 95/56
[2019-01-22] MEDS: busPIRone 5mg tablet PO SCH ×2 (08:12→20:58)
[2019-01-22] MEDS: citalopram 20mg tablet PO SCH (08:13)
[2019-01-22] MEDS: vitamin D (cholecalciferol) 1,000 unit tablet PO SCH (08:13)
[2019-01-22] MEDS: pantoprazole 40mg Tablet.DR PO SCH (08:13)
[2019-01-22] MEDS: folic acid 1mg tablet PO SCH (08:13)
[2019-01-22] MEDS: gabapentin 400mg capsule PO SCH ×2 (08:13→20:58)
[2019-01-22] MEDS: naproxen 500mg tablet PO SCH ×2 (08:14→20:58)
[2019-01-22] MEDS: levetiracetam 250mg tablet PO SCH ×2 (08:34→20:57)
[2019-01-22 09:25] LABS: BASOPHILS # (AUTO) 0.1 X10'3 (0-0.2); BASOPHILS % (AUTO) 1.3 % (0-1); EOSINOPHILS # (AUTO) 0.1 X10'3 (0-0.9); EOSINOPHILS % (AUTO) 1.8 % (0-6); HEMATOCRIT 38.8 % (35.0-45.0); HEMOGLOBIN 12.5 g/dl (12.0-16.0); LYMPHOCYTES # (AUTO) 1.1 X10'3 (1.1-4.8); LYMPHOCYTES % (AUTO) 19.2 % (21-51); MEAN CORPUSCULAR HEMOGLOBIN 29.9 PG (27.0-31.0); MEAN CORPUSCULAR HGB CONC 32.3 g/dL (33.0-36.5); MEAN CORPUSCULAR VOLUME 92.6 FL (78-98); MEAN PLATELET VOLUME 9.9 FL (7.4-10.4); MONOCYTES # (AUTO) 0.4 X10'3 (0-0.9); NEUTROPHILS % (AUTO) 70.7 % (42-75); PLATELET COUNT 151 X10'3 (140-440); RED BLOOD COUNT 4.19 X10'6 (4.20-5.60); WHITE BLOOD COUNT 5.7 X10'3 (4.5-11.0)
[2019-01-22 09:43] LABS: ALANINE AMINOTRANSFERASE 21 U/L (12-78); ALBUMIN 3.4 G/DL (3.4-5.0); ALBUMIN/GLOBULIN RATIO 1.1 (1.1-1.5); ALKALINE PHOSPHATASE 104 IU/L (46-116); ANION GAP 5 (8-16); ASPARTATE AMINO TRANSFERASE 19 U/L (10-37); BILIRUBIN,TOTAL 0.6 MG/DL (0.1-1.0); BLOOD UREA NITROGEN 22 MG/DL (7-18); BUN/CREATININE RATIO 26.5 (6.6-38.0); CALCIUM 8.8 MG/DL (8.5-10.1); CHLORIDE 103 MMOL/L (99-107); CREATININE 0.83 MG/DL (0.40-0.90); GLUCOSE 125 MG/DL (70-104); MAGNESIUM 1.6 MG/DL (1.5-2.4); POTASSIUM 4.3 MMOL/L (3.5-5.1); SODIUM 139 MMOL/L (135-145); TOTAL CARBON DIOXIDE 31.1 MMOL/L (24-32); TOTAL PROTEIN 6.4 G/DL (6.4-8.2); eGFR 71 ML/MIN
[2019-01-22] MEDS: naltrexone 50mg tablet PO SCH (09:43)
[2019-01-22 11:21] LABS: ANISOCYTOSIS 2+; PLATELET ESTIMATE NORMAL; POLYCHROMASIA FEW; STOMATOCYTES 1+
--- NOTE | 2019-01-22 15:11 | NUR ---
Nursing Progress Note: KLARISSA Legal hold: 5150 Client on voluntary/involuntary status for DTS Report received from nurse Sarah Briones RN with use of SBAR. Why are they here: The patient is a 58 year old female admitted to [facility] for depression and suicidal thoughts. She originally presented to the ER on 01/17 reporting that she was suicidal with a plan to drink etoh excessively and take an overdose of her medications. Her BA on admit to the ER was 0.276. She has never had an intentional suicide attempt in the past. She has had one previous short psychiatric hospitalization. She currently is a patient at the [facility]. She originally came to [place] one year ago with a significant other who she has since parted ways with. She has had numerous ER visit that are ETOH related. She had a two week stay in a sober living facility but "It didn't work for me" She also has been at the [facility]. She currently is homeless and has not income. She has applied for SSI. She has had GA in the past. Her only family member in the area who is her brother who she can not stay with because he has cancer but he is emotionally supportive of her. She has chronic alcohol dependance and has been drinking since age 18. Her longest period of sobriety is 3 and 1/2 years. She denies hx of childhood abuse or trauma. Her parents when she was 11. She is wanting help with finding housing. Assessment What has happened this shift: The patient was awake and watching tv at the change of shift. She is pleasant during 1:1 assessment. CIWA score continues to be zero. She reports feeling "Fine" and denies any SE's to medications. None were objectively observed. She continues to be worried about her housing and not having any money. She is also upset about not having a solid support system, "I have no one." Reports she has done multiple rehab programs in the past and has no desire to do them again. Pt is found socialzing minimally with peers throughout the day and watching tv. No concerns voiced at this time. S/I, H/I: Denies A/VH: Denies Sleep: 8hrs NOC ADL's: Independent Group attendance: Yes Were meds taken: medication compliant Any med S/E none reported or observed Mental Status Exam Appearance: Clean and well groomed, wearing green hospital scrubs Eye contact: WNL Behavior: WNL. Calm, cooperative, pleasant Speech: coherent, soft, normal rate and rhythm Mood: Mild depression and some anxiety Affect: congruent to mood Thought process: logical, linear Thought Content: situational difficulties of being homeless and not having money Cognition: A & O X4 Insight: fair Judgment: fair Interventions PRN's used: N/A Therapeutic interventions: One to one with the patient to complete the admission process. Severity of depression and self harm risk assessed. Restraints/seclusion/emergency medication:NA Justification of Continued Inpatient Treatment: The patient is at high risk for alcohol use and potentially a risk to harm herself. She needs further evaluation and stabilization to minimize risks.
[2019-01-22] MEDS ORDERED: ARIP5TAB4 PO (16:16)
[2019-01-22 19:00] VITALS: BP 91/40
[2019-01-22] MEDS: traZODone 50mg tablet PO PRN (20:59)
--- NOTE | 2019-01-22 23:19 | NUR ---
Nursing Progress Note: KLARISSA Legal hold: 5150 Client on voluntary/involuntary status for DTS Report received from nurse Caitlyn RN with use of SBAR. Why are they here: The patient is a 58 year old female admitted to [facility] for depression and suicidal thoughts. She originally presented to the ER on 01/17 reporting that she was suicidal with a plan to drink etoh excessively and take an overdose of her medications. Her BA on admit to the ER was 0.276. She has never had an intentional suicide attempt in the past. She has had one previous short psychiatric hospitalization. She currently is a patient at the [facility]. She originally came to [place] one year ago with a significant other who she has since parted ways with. She has had numerous ER visit that are ETOH related. She had a two week stay in a sober living facility but "It didn't work for me" She also has been at the [facility]. She currently is homeless and has not income. She has applied for SSI. She has had GA in the past. Her only family member in the area who is her brother who she can not stay with because he has cancer but he is emotionally supportive of her. She has chronic alcohol dependance and has been drinking since age 18. Her longest period of sobriety is 3 and 1/2 years. She denies hx of childhood abuse or trauma. Her parents when she was 11. She is wanting help with finding housing. Assessment What has happened this shift: This patient is alert and well oriented. She is socializing with other patients. The patient is in the presence of a 1:1 sitter. The patient is cooperative and candid. She is oriented X 4. This patient denies S/I, H/I, or any hallucinations. This patient complains of mild anxiety, there is some subjective depression. Patient states she is depressed because she is not with her child and can't leave. Patient states her only goal is to leave this unit. The patient is medication compliant. S/I, H/I: Denies A/VH: Denies Sleep: Will compile in late am. ADL's: Independent Group attendance: Yes, on day shift. Were meds taken: Patient is medication compliant. Any med S/E None reported or observed. Mental Status Exam Appearance: Clean and well groomed, wearing green hospital scrubs. Eye contact: Good. Behavior: Patient is kind and cooperative with staff. Speech: Quiet, normal rate and rhythm. Mood: Mild depression and some anxiety. Affect: Congruent to mood. Thought process: Linear. Thought Content: "I just want to leave." Cognition: A & O X4 Insight: Fair. Judgment: Fair. Interventions PRN's used: N/A Therapeutic interventions: One to one with the patient to complete the admission process. Severity of depression and self harm risk assessed. Restraints/seclusion/emergency medication:NA Justification of Continued Inpatient Treatment: The patient is at high risk for alcohol use and potentially a risk to harm herself. She needs further evaluation and stabilization to minimize risks. Addendum: 01/23/19 at 0213 by Angel Gonsalez RN The above nurses note was not for this patient. Please ignore. See new note.
--- NOTE | 2019-01-23 03:05 | NUR ---
sing Progress Note: KLARISSA Legal hold: 5150 Client on voluntary/involuntary status for DTS Report received from JOSLYN Brady with use of SBAR. Why are they here: The patient is a 58 year old female admitted to [facility] for depression and suicidal thoughts. She originally presented to the ER on 01/17 reporting that she was suicidal with a plan to drink etoh excessively and take an overdose of her medications. Her BA on admit to the ER was 0.276. She has never had an intentional suicide attempt in the past. She has had one previous short psychiatric hospitalization. She currently is a patient at the [facility]. She originally came to [place] one year ago with a significant other who she has since parted ways with. She has had numerous ER visit that are ETOH related. She had a two week stay in a sober living facility but "It didn't work for me" She also has been at the [facility]. She currently is homeless and has not income. She has applied for SSI. She has had GA in the past. Her only family member in the area who is her brother who she can not stay with because he has cancer but he is emotionally supportive of her. She has chronic alcohol dependance and has been drinking since age 18. Her longest period of sobriety is 3 and 1/2 years. She denies hx of childhood abuse or trauma. Her parents when she was 11. She is wanting help with finding housing. Assessment What has happened this shift: Patient is isolating in her room, laying in bed, reading a book. Patient is awake and well oriented. Patient exhibits a blunted affect. Patient states mild depression. Patient states she is concerned because she has nobody in her life. Patient does not know how she will survive when discharged, where her money will come from? Patient does not express any plans to quit drinking. She denies S/I or H/I, she denies hallucinations. The patient is of linear thought. She is cooperative with staff. Patient is medication compliant too. S/I, H/I: Denies. A/VH: Denies. Sleep: Will tally at 0500 ADL's: Independent Group attendance: Yes Were meds taken: Medication compliant. Any med S/E none reported or observed. Mental Status Exam Appearance: Clean and well groomed, wearing green hospital scrubs. Eye contact: direct. Behavior: WNL. Calm, cooperative, pleasant Speech: coherent, soft, normal rate and rhythm Mood: Mild depression and some anxiety Affect: congruent to mood Thought process: logical, linear Thought Content: situational difficulties of being homeless and not having money Cognition: A & O X4 Insight: Fair. Judgment: Fair. Interventions PRN's used: N/A Therapeutic interventions: One to one with the patient to complete the admission process. Severity of depression and self harm risk assessed. Restraints/seclusion/emergency medication:NA Justification of Continued Inpatient Treatment: The patient is at high risk for alcohol use and potentially a risk to harm herself. She needs further evaluation and stabilization to minimize risks.
[2019-01-23 07:56] VITALS: BP 108/56
[2019-01-23] MEDS: levetiracetam 250mg tablet PO SCH ×2 (08:43→20:43)
[2019-01-23] MEDS: vitamin D (cholecalciferol) 1,000 unit tablet PO SCH (08:43)
[2019-01-23] MEDS: naltrexone 50mg tablet PO SCH (08:43)
[2019-01-23] MEDS: folic acid 1mg tablet PO SCH (08:44)
[2019-01-23] MEDS: busPIRone 5mg tablet PO SCH ×2 (08:44→20:43)
[2019-01-23] MEDS: citalopram 20mg tablet PO SCH (08:44)
[2019-01-23] MEDS: gabapentin 400mg capsule PO SCH ×2 (08:44→20:44)
[2019-01-23] MEDS: naproxen 500mg tablet PO SCH ×2 (08:45→20:43)
[2019-01-23] MEDS: pantoprazole 40mg Tablet.DR PO SCH (08:45)
[2019-01-23] MEDS: ARIPIPRAZOLE 10 MG TABLET PO SCH (16:52)
--- NOTE | 2019-01-23 17:21 | NUR ---
Nursing Progress Note: Legal hold: 5150 Client on voluntary/involuntary status for DTS Report received from Sarah Briones RN with use of SBAR. Why are they here: The patient is a 58 year old female admitted to [facility] for depression and suicidal thoughts. She originally presented to the ER on 01/17 reporting that she was suicidal with a plan to drink etoh excessively and take an overdose of her medications. Her BA on admit to the ER was 0.276. She has never had an intentional suicide attempt in the past. She has had one previous short psychiatric hospitalization. She currently is a patient at the [facility]. She originally came to [place] one year ago with a significant other who she has since parted ways with. She has had numerous ER visit that are ETOH related. She had a two week stay in a sober living facility but "It didn't work for me" She also has been at the [facility]. She currently is homeless and has not income. She has applied for SSI. She has had GA in the past. Her only family member in the area who is her brother who she can not stay with because he has cancer but he is emotionally supportive of her. She has chronic alcohol dependance and has been drinking since age 18. Her longest period of sobriety is 3 and 1/2 years. She denies hx of childhood abuse or trauma. Her parents when she was 11. She is wanting help with finding housing. Assessment What has happened this shift: Patient is observed sleeping at change of shift. She wakes for breakfast and joins others in the group room. Patient takes all her medication without issue. She states that she has been spending her time reading books in her room. She states that she has peers on the unit that she has similar life experience with. She states that she plans to talk to peers today and share stories. Patient denies any needs. Continues to report depression and haplessness. S/I, H/I: Denies. A/VH: Denies. Sleep: 6.5hrs NOC ADL's: Independent Group attendance: Yes Were meds taken: Medication compliant. Any med S/E none reported or observed. Mental Status Exam Appearance: Clean and well groomed Eye contact: direct. Behavior: Calm, cooperative, pleasant Speech: soft, normal rate and rhythm Mood: reports depression and hopelessness Affect: congruent to mood Thought process: linear Thought Content: no delusional thought content present Cognition: A & O X4 Insight: Fair. Judgment: Fair. Interventions PRN's used: N/A Therapeutic interventions: 1:1 therapeutic assessment, maintained safe therapeutic milieu, provided active listening with positive reinforcement, provided medication administration/education/monitoring as needed; Q15 safety checks. Restraints/seclusion/emergency medication:NA Justification of Continued Inpatient Treatment: Continued therapeutic support and medication management needed to provide stabilization, prevent decompensation, improve coping mechanisms decreasing risk to patient and re-admittance.
[2019-01-23 19:57] VITALS: BP 108/49
--- NOTE | 2019-01-24 04:17 | NUR ---
Nursing Progress Note: Legal hold: 5150 Client on involuntary status for DTS Report received from JOSLYN Gutierrez with use of SBAR. Why are they here: The patient is a 58 year old female admitted to [facility] for depression and suicidal thoughts. She originally presented to the ER on 01/17 reporting that she was suicidal with a plan to drink etoh excessively and take an overdose of her medications. Her BA on admit to the ER was 0.276. She has never had an intentional suicide attempt in the past. She has had one previous short psychiatric hospitalization. She currently is a patient at the [facility]. She originally came to [place] one year ago with a significant other who she has since parted ways with. She has had numerous ER visit that are ETOH related. She had a two week stay in a sober living facility but "It didn't work for me" She also has been at the [facility]. She currently is homeless and has not income. She has applied for SSI. She has had GA in the past. Her only family member in the area who is her brother who she can not stay with because he has cancer but he is emotionally supportive of her. She has chronic alcohol dependance and has been drinking since age 18. Her longest period of sobriety is 3 and 1/2 years. She denies hx of childhood abuse or trauma. Her parents when she was 11. She is wanting help with finding housing. Assessment What has happened this shift: Pt pacing in halls at start of shift. She alternates with lying in bed and walking in halls. . Did come to group room for snack. 1:1 in room pt gave short answers to questions closed eyes at time. Pt said she is still depressed she has been depressed for a year. Pt denies SI at this time but "I can easily become suicidal" Pt is very concerned about having housing on discharge. She thinks a sober living situation would be good for her. Encouraged to talk to SW about Discharge. S/I, H/I: Denies. A/VH: Denies. Sleep: Asleep at this time ADL's: Independent Group attendance: Yes Were meds taken: Medication compliant. Any med S/E none reported or observed. Mental Status Exam Appearance: Clean and well groomed Eye contact: direct. Behavior: Calm, cooperative, pleasant Speech: soft, normal rate and rhythm Mood: reports depression and hopelessness Affect: congruent to mood Thought process: linear Thought Content: no delusional thought content present Cognition: A & O X4 Insight: Fair. Judgment: Fair. Interventions PRN's used: N/A Therapeutic interventions: 1:1 therapeutic assessment, maintained safe therapeutic milieu, provided active listening with positive reinforcement, provided medication administration/education/monitoring as needed; Q15 safety checks. Restraints/seclusion/emergency medication:NA Justification of Continued Inpatient Treatment: Continued therapeutic support and medication management needed to provide stabilization, prevent decompensation, improve coping mechanisms decreasing risk to patient and re-admittance.
[2019-01-24] MEDS: ARIPIPRAZOLE 10 MG TABLET PO SCH (07:52)
[2019-01-24] MEDS: busPIRone 5mg tablet PO SCH ×2 (07:53→20:20)
[2019-01-24] MEDS: levetiracetam 250mg tablet PO SCH ×2 (07:53→20:19)
[2019-01-24] MEDS: naproxen 500mg tablet PO SCH ×2 (07:54→20:19)
[2019-01-24] MEDS: pantoprazole 40mg Tablet.DR PO SCH (07:54)
[2019-01-24] MEDS: citalopram 20mg tablet PO SCH (07:54)
[2019-01-24] MEDS: gabapentin 400mg capsule PO SCH ×2 (07:55→20:19)
[2019-01-24] MEDS: vitamin D (cholecalciferol) 1,000 unit tablet PO SCH (07:55)
[2019-01-24] MEDS: naltrexone 50mg tablet PO SCH (07:56)
[2019-01-24] MEDS: folic acid 1mg tablet PO SCH (07:56)
[2019-01-24 08:00] VITALS: BP 94/59
--- NOTE | 2019-01-24 14:28 | NUR ---
Initial: Pt PO 75-100% meals meeting needs. LBM 01/20. Cholesterol 276 on admit may benefit from statin per MD approval. No other nutrition concerns at this time. Will continue to monitor. Rec: 1. advance to heart healthy diet per MD 2. routine bowel care Addendum: 01/24/19 at [address] Amended: Links added.
[2019-01-24] MEDS ORDERED: tuberculin, purif. prot. deriv. 5 units/0.1ml ID ONE (17:35)
--- NOTE | 2019-01-24 18:13 | NUR ---
Nursing Progress Note: Legal hold: VOL Client on voluntary/involuntary status for DTS Report received from JOSLYN Paul with use of SBAR. Why are they here: The patient is a 58 year old female admitted to [facility] for depression and suicidal thoughts. She originally presented to the ER on 01/17 reporting that she was suicidal with a plan to drink etoh excessively and take an overdose of her medications. Her BA on admit to the ER was 0.276. She has never had an intentional suicide attempt in the past. She has had one previous short psychiatric hospitalization. She currently is a patient at the [facility]. She originally came to [place] one year ago with a significant other who she has since parted ways with. She has had numerous ER visit that are ETOH related. She had a two week stay in a sober living facility but "It didn't work for me" She also has been at the [facility]. She currently is homeless and has not income. She has applied for SSI. She has had GA in the past. Her only family member in the area who is her brother who she can not stay with because he has cancer but he is emotionally supportive of her. She has chronic alcohol dependance and has been drinking since age 18. Her longest period of sobriety is 3 and 1/2 years. She denies hx of childhood abuse or trauma. Her parents when she was 11. She is wanting help with finding housing. Assessment What has happened this shift: Patient is observed sleeping at change of shift. She wakes prior to breakfast and joins others in the group room. Patient takes all her medication without issue. She continues to spend most of her day in her room reading. She does attend groups. When approached she is friendly and conversational. She states that she is still feeling depressed but that it has improved. She is not suicidal but at times feels hopeless. She states that she has been thinking of her and whether she should be supportive of his struggles while he faces a fpc sentence or just let it go and not contact him. S/I, H/I: Denies. A/VH: Denies. Sleep: 8.75hrs NOC ADL's: Independent Group attendance: Yes Were meds taken: Medication compliant. Any med S/E none reported or observed. Mental Status Exam Appearance: Clean and well groomed Eye contact: direct. Behavior: Calm, cooperative, pleasant Speech: soft, normal rate and rhythm Mood: reports depression and hopelessness Affect: congruent to mood Thought process: linear Thought Content: no delusional thought content present Cognition: A & O X4 Insight: Fair. Judgment: Fair. Interventions PRN's used: Tylenol Therapeutic interventions: 1:1 therapeutic assessment, maintained safe therapeutic milieu, provided active listening with positive reinforcement, provided medication administration/education/monitoring as needed; Q15 safety checks. Restraints/seclusion/emergency medication:NA Justification of Continued Inpatient Treatment: Continued therapeutic support and medication management needed to provide stabilization, prevent decompensation, improve coping mechanisms decreasing risk to patient and re-admittance.
[2019-01-24 19:54] VITALS: BP 112/50
[2019-01-24] MEDS: traZODone 50mg tablet PO PRN (20:19)
--- NOTE | 2019-01-24 21:43 | NUR ---
Nursing Progress Note: Legal hold: VOL Client on voluntary/involuntary status for DTS Report received from JOSLYN Brady with use of SBAR. Why are they here: The patient is a 58 year old female admitted to [facility] for depression and suicidal thoughts. She originally presented to the ER on 01/17 reporting that she was suicidal with a plan to drink etoh excessively and take an overdose of her medications. Her BA on admit to the ER was 0.276. She has never had an intentional suicide attempt in the past. She has had one previous short psychiatric hospitalization. She currently is a patient at the [facility]. She originally came to [place] one year ago with a significant other who she has since parted ways with. She has had numerous ER visit that are ETOH related. She had a two week stay in a sober living facility but "It didn't work for me" She also has been at the [facility]. She currently is homeless and has not income. She has applied for SSI. She has had GA in the past. Her only family member in the area who is her brother who she can not stay with because he has cancer but he is emotionally supportive of her. She has chronic alcohol dependance and has been drinking since age 18. Her longest period of sobriety is 3 and 1/2 years. She denies hx of childhood abuse or trauma. Her parents when she was 11. She is wanting help with finding housing. Assessment What has happened this shift: Patient isolated in room all shift. Declined to come to group room even for snack. Pt says she is still depressed but denies SI. Pt is not aware of discharge plan encouraged to talk to SW. Took all meds refused PPD placement she says she had a TB test 3 weeks ago at [facility]. Passed on to charge for dayshift to try and get TB test. Pt agreed if unable to get test she will allow placement. S/I, H/I: Denies. A/VH: Denies. Sleep: asleep at this time ADL's: Independent Group attendance: NA Were meds taken: Medication compliant. Any med S/E none reported or observed. Mental Status Exam Appearance: Clean and well groomed Eye contact: direct. Behavior: Calm, cooperative, pleasant Speech: soft, normal rate and rhythm Mood: reports depression and hopelessness Affect: congruent to mood Thought process: linear Thought Content: no delusional thought content present Cognition: A & O X4 Insight: Fair. Judgment: Fair. Interventions PRN's used: Tylenol Therapeutic interventions: 1:1 therapeutic assessment, maintained safe therapeutic milieu, provided active listening with positive reinforcement, provided medication administration/education/monitoring as needed; Q15 safety checks. Restraints/seclusion/emergency medication:NA Justification of Continued Inpatient Treatment: Continued therapeutic support and medication management needed to provide stabilization, prevent decompensation, improve coping mechanisms decreasing risk to patient and re-admittance.
[2019-01-25] MEDS: vitamin D (cholecalciferol) 1,000 unit tablet PO SCH (07:39)
[2019-01-25] MEDS: ARIPIPRAZOLE 10 MG TABLET PO SCH (07:39)
[2019-01-25] MEDS: levetiracetam 250mg tablet PO SCH ×2 (07:40→20:33)
[2019-01-25] MEDS: pantoprazole 40mg Tablet.DR PO SCH (07:40)
[2019-01-25] MEDS: busPIRone 5mg tablet PO SCH ×2 (07:40→20:33)
[2019-01-25] MEDS: folic acid 1mg tablet PO SCH (07:40)
[2019-01-25] MEDS: naproxen 500mg tablet PO SCH ×2 (07:40→20:33)
[2019-01-25] MEDS: citalopram 20mg tablet PO SCH (07:40)
[2019-01-25] MEDS: gabapentin 400mg capsule PO SCH ×2 (07:40→20:33)
[2019-01-25] MEDS: naltrexone 50mg tablet PO SCH (07:41)
[2019-01-25 07:55] VITALS: BP 113/53
--- NOTE | 2019-01-25 10:57 | NUR ---
Met with Tx to discuss discharge plan. Ct reported she does not have any income or housing currently. She reported she would like to return to [place] or go to [facility]. She reported she also filled out an [facility]. She reported she is working with [facility] ([facility]) and gave verbal permission for typewriter operator automatic to call to discuss her case. Spoke with JOSLYN Cannon, (ph# [phone], [phone]). Kassandra reported [facility] may be able to coordinate care for Ct to go to [place] or [facility] and has funding to do so. She reported Christina is Tx's manager target and she will ask hCristina to call typewriter operator automatic. Called [facility] and scheduled Ct follow up appts: therapy: 01/31/19 at 12:30 pm and med provider: 02/01/19 at 1:10 pm. ERIK Helm Lice # [id number]
--- NOTE | 2019-01-25 15:07 | NUR ---
Nursing Progress Note: Paola Legal hold: VOL Client on voluntary/involuntary status for DTS Report received from Morena with use of SBAR Why are they here: The patient is a 58 year old female admitted to [facility] for depression and suicidal thoughts. She originally presented to the ER on 01/17 reporting that she was suicidal with a plan to drink etoh excessively and take an overdose of her medications. Her BA on admit to the ER was 0.276. She has never had an intentional suicide attempt in the past. She has had one previous short psychiatric hospitalization. She currently is a patient at the [facility]. She originally came to [place] one year ago with a significant other who she has since parted ways with. She has had numerous ER visit that are ETOH related. She had a two week stay in a sober living facility but "It didn't work for me" She also has been at the [facility]. She currently is homeless and has no income. She has applied for SSI. She has had GA in the past. Her only family member in the area who is her brother who she can not stay with because he has cancer but he is emotionally supportive of her. She has chronic alcohol dependance and has been drinking since age 18. Her longest period of sobriety is 3 and 1/2 years. She denies hx of childhood abuse or trauma. Her parents when she was 11. She is wanting help with finding housing. Assessment What has happened this shift: Client was awake and in her bed to begin this shift. Client was amicable to assessment and medications this morning and was social with both staff as well as her peer group. Client seems a little isolative and withdrawn but she is amicable to care. Client attended am group activities and participated without issues. Client was more isolative to her room this afternoon but was compliant with all aspects of her care today. S/I, H/I: Denies. A/VH: Denies. Sleep: ADL's: Independent Group attendance: am group Were meds taken: Medication compliant. Any med S/E none reported or observed. Mental Status Exam Appearance: Clean and well groomed Eye contact: direct. Behavior: Calm, cooperative, pleasant Speech: soft, normal rate and rhythm Mood: reports depression and hopelessness Affect: congruent to mood Thought process: linear Thought Content: no delusional thought content present Cognition: A & O X4 Insight: Good Judgment: Fair. Interventions PRN's used: Therapeutic interventions: 1:1 therapeutic assessment, maintained safe therapeutic milieu, provided active listening with positive reinforcement, provided medication administration/education/monitoring as needed; Q15 safety checks. Restraints/seclusion/emergency medication:NA Justification of Continued Inpatient Treatment: Continued therapeutic support and medication management needed to provide stabilization, prevent decompensation, improve coping mechanisms decreasing risk to patient and re-admittance.
[2019-01-25] MEDS: traZODone 50mg tablet PO PRN (20:33)
[2019-01-25 20:38] VITALS: BP 120/76
--- NOTE | 2019-01-26 03:02 | NUR ---
Nursing Progress Note: Legal hold: VOL Client on voluntary/involuntary status for DTS Report received from JOSLYN Vasquez with use of SBAR Why are they here: The patient is a 58 year old female admitted to [facility] for depression and suicidal thoughts. She originally presented to the ER on 01/17 reporting that she was suicidal with a plan to drink etoh excessively and take an overdose of her medications. Her BA on admit to the ER was 0.276. She has never had an intentional suicide attempt in the past. She has had one previous short psychiatric hospitalization. She currently is a patient at the [facility]. She originally came to [place] one year ago with a significant other who she has since parted ways with. She has had numerous ER visit that are ETOH related. She had a two week stay in a sober living facility but "It didn't work for me" She also has been at the [facility]. She currently is homeless and has no income. She has applied for SSI. She has had GA in the past. Her only family member in the area who is her brother who she can not stay with because he has cancer but he is emotionally supportive of her. She has chronic alcohol dependance and has been drinking since age 18. Her longest period of sobriety is 3 and 1/2 years. She denies hx of childhood abuse or trauma. Her parents when she was 11. She is wanting help with finding housing. Assessment What has happened this shift: The patient was seen in her room at bedside. She says that she only feels like staying in her room. She reports that there's some improvement in her anxiety, "but I still have things to resolve." The patient is taking medicine and hopes to DC to sober living for which she seems pretty motivated. She states that she still has a lot of issues to work out that cause her depression and anxiety. The patient denies any AV/H, but still endorses SI. "I really feel guilty over my 's situation." The patient remained in bed the entire evening, took HS meds, then went to sleep. S/I, H/I: Suicidal with no plan A/VH: Denies. Sleep: See sleep assessment ADL's: Independent Group attendance: No groups at night. Were meds taken: Medication compliant. Any med S/E none reported or observed. Mental Status Exam Appearance: Clean and well groomed Eye contact: Direct. Behavior: Calm, cooperative, withdrawn Speech: soft, normal rate and rhythm Mood: Depression Affect: Flat Thought process: linear Thought Content: no delusional thought content present Cognition: A & O X4 Insight: Poor Judgment: Fair. Interventions PRN's used: Therapeutic interventions: 1:1 therapeutic assessment, maintained safe therapeutic milieu, provided active listening with positive reinforcement, provided medication administration/education/monitoring as needed; Q15 safety checks. Restraints/seclusion/emergency medication:NA Justification of Continued Inpatient Treatment: Continued therapeutic support and medication management needed to provide stabilization, prevent decompensation, improve coping mechanisms decreasing risk to patient and re-admittance.
[2019-01-26] MEDS: naproxen 500mg tablet PO SCH ×2 (07:26→19:31)
[2019-01-26] MEDS: citalopram 20mg tablet PO SCH (07:26)
[2019-01-26] MEDS: vitamin D (cholecalciferol) 1,000 unit tablet PO SCH (07:27)
[2019-01-26] MEDS: levetiracetam 250mg tablet PO SCH ×2 (07:27→19:31)
[2019-01-26] MEDS: ARIPIPRAZOLE 10 MG TABLET PO SCH (07:27)
[2019-01-26] MEDS: folic acid 1mg tablet PO SCH (07:27)
[2019-01-26] MEDS: busPIRone 5mg tablet PO SCH ×2 (07:27→19:31)
[2019-01-26] MEDS: gabapentin 400mg capsule PO SCH ×2 (07:27→19:31)
[2019-01-26 08:19] VITALS: BP 98/62
[2019-01-26] MEDS: naltrexone 50mg tablet PO SCH (08:21)
[2019-01-26] MEDS: pantoprazole 40mg Tablet.DR PO SCH (08:21)
--- NOTE | 2019-01-26 10:56 | NUR ---
Called JOSLYN Cannon, ( [phone], [phone]) with [facility] and left a message requesting a call back regarding funding for D&A tx for Ct. ERIK Helm Lic# [id number]
--- NOTE | 2019-01-26 14:06 | NUR ---
Completed [facility] referral with Ct and faxed to [facility] office. ERIK Helm Lic# [id number]
--- NOTE | 2019-01-26 15:44 | NUR ---
Nursing Progress Note: KLARISSA Legal hold: VOL Client on voluntary/involuntary status for DTS Report received from JOSLYN Berg with use of SBAR Why are they here: The patient is a 58 year old female admitted to [facility] for depression and suicidal thoughts. She originally presented to the ER on 01/17 reporting that she was suicidal with a plan to drink etoh excessively and take an overdose of her medications. Her BA on admit to the ER was 0.276. She has never had an intentional suicide attempt in the past. She has had one previous short psychiatric hospitalization. She currently is a patient at the [facility]. She originally came to [place] one year ago with a significant other who she has since parted ways with. She has had numerous ER visit that are ETOH related. She had a two week stay in a sober living facility but "It didn't work for me" She also has been at the [facility]. She currently is homeless and has no income. She has applied for SSI. She has had GA in the past. Her only family member in the area who is her brother who she can not stay with because he has cancer but he is emotionally supportive of her. She has chronic alcohol dependance and has been drinking since age 18. Her longest period of sobriety is 3 and 1/2 years. She denies hx of childhood abuse or trauma. Her parents when she was 11. She is wanting help with finding housing. Assessment What has happened this shift: The patient was seen in her room at bedside. She says that she enjoys sitting in her room and reading books. She reports that she has been compliant with her medications and hopes to D/C to sober living. She states that she continues to suffer with depression and anxiety. The patient denies any AV/H, denies SI. Pt has chest xray on file, referral to [facility] is being made today. S/I, H/I: denies A/VH: denies Sleep: 6.75hrs NOC ADL's: Independent Group attendance: Yes Were meds taken: Medication compliant. Any med S/E none reported or observed. Mental Status Exam Appearance: Clean and well groomed Eye contact: Direct. Behavior: Calm, cooperative, withdrawn Speech: soft, normal rate and rhythm Mood: Depression Affect: Flat Thought process: linear Thought Content: no delusional thought content present Cognition: A & O X4 Insight: Poor Judgment: Fair. Interventions PRN's used: Therapeutic interventions: 1:1 therapeutic assessment, maintained safe therapeutic milieu, provided active listening with positive reinforcement, provided medication administration/education/monitoring as needed; Q15 safety checks. Restraints/seclusion/emergency medication:NA Justification of Continued Inpatient Treatment: Continued therapeutic support and medication management needed to provide stabilization, prevent decompensation, improve coping mechanisms decreasing risk to patient and re-admittance.
[2019-01-26 20:07] VITALS: BP 108/60
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
[2019-01-27 07:49] VITALS: BP 108/63
[2019-01-27] MEDS: naproxen 500mg tablet PO SCH ×2 (07:59→20:20)
[2019-01-27] MEDS: levetiracetam 250mg tablet PO SCH ×2 (07:59→20:19)
[2019-01-27] MEDS: citalopram 20mg tablet PO SCH (07:59)
[2019-01-27] MEDS: busPIRone 5mg tablet PO SCH ×2 (08:00→20:20)
[2019-01-27] MEDS: pantoprazole 40mg Tablet.DR PO SCH (08:00)
[2019-01-27] MEDS: vitamin D (cholecalciferol) 1,000 unit tablet PO SCH (08:00)
[2019-01-27] MEDS: folic acid 1mg tablet PO SCH (08:00)
[2019-01-27] MEDS: naltrexone 50mg tablet PO SCH (08:00)
[2019-01-27] MEDS: gabapentin 400mg capsule PO SCH ×2 (08:00→20:20)
--- NOTE | 2019-01-27 14:37 | NUR ---
Nursing Progress Note: KLARISSA Legal hold: VOL Client on voluntary/involuntary status for DTS Report received from JOSLYN Berg with use of SBAR Why are they here: The patient is a 58 year old female admitted to [facility] for depression and suicidal thoughts. She originally presented to the ER on 01/17 reporting that she was suicidal with a plan to drink etoh excessively and take an overdose of her medications. Her BA on admit to the ER was 0.276. She has never had an intentional suicide attempt in the past. She has had one previous short psychiatric hospitalization. She currently is a patient at the [facility]. She originally came to [place] one year ago with a significant other who she has since parted ways with. She has had numerous ER visit that are ETOH related. She had a two week stay in a sober living facility but "It didn't work for me" She also has been at the [facility]. She currently is homeless and has no income. She has applied for SSI. She has had GA in the past. Her only family member in the area who is her brother who she can not stay with because he has cancer but he is emotionally supportive of her. She has chronic alcohol dependance and has been drinking since age 18. Her longest period of sobriety is 3 and 1/2 years. She denies hx of childhood abuse or trauma. Her parents when she was 11. She is wanting help with finding housing. Assessment What has happened this shift: The patient was seen in the community room socializing during AM assessment. She reports feeling okay and denies any SEs at this time. She reports feeling relieved that her Abilify has been switched to bedtime because it caused her sedation during the day. She says that she enjoys sitting in her room and reading books. She reports that she has been compliant with her medications and hopes to D/C to sober living or [facility]. Pt met with Amadou from [facility] today for admission interview. Reports the interview went well and that she plans on going to [facility] on Thursday/Thursday. Pt would like to access clothing closet, she reports not having many clothes and is worried about that. She states that she continues to suffer with depression and anxiety. The patient denies any AV/H, denies SI today. S/I, H/I: denies A/VH: denies Sleep: 7 hrs NOC ADL's: Independent Group attendance: Yes Were meds taken: Medication compliant. Any med S/E none reported or observed. Repotrs morning sedation when taking Abilify in the AM. Mental Status Exam Appearance: Clean and well groomed Eye contact: Direct Behavior: Calm, cooperative, withdrawn Speech: soft, normal rate and rhythm Mood: Depression Affect: Flat Thought process: linear Thought Content: no delusional thought content present Cognition: A & O X4 Insight: Poor Judgment: Fair. Interventions PRN's used: Therapeutic interventions: 1:1 therapeutic assessment, maintained safe therapeutic milieu, provided active listening with positive reinforcement, provided medication administration/education/monitoring as needed; Q15 safety checks. Restraints/seclusion/emergency medication:NA Justification of Continued Inpatient Treatment: Continued therapeutic support and medication management needed to provide stabilization, prevent decompensation, improve coping mechanisms decreasing risk to patient and re-admittance.
--- NOTE | 2019-01-27 15:18 | NUR ---
Amadou, [facility], interviewed Ct today and reported she can go to [facility] on Thu. Spoke to Christina, [facility] ([facility]) housing (ph# [phone]) regarding if Ct can go to [facility]. She reported there may be funding through [facility]. She reported she will see if there are any beds at [facility] or [facility] and will call medical underwriter back today. Informed Ct she has been accepted at [facility] and that [facility] is looking at [facility] or [facility] for her. Called [facility] and re-scheduled Ct's therapy appt to 02/07/19. ERIK Helm Lic# [id number]
[2019-01-27 20:00] VITALS: BP 119/46
[2019-01-27] MEDS: aripiprazole 5mg tablet PO SCH (20:20)
[2019-01-27] MEDS ORDERED: ARIPIPRAZOLE 10 MG TABLET PO SCH (21:00)
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
[2019-01-28 07:49] VITALS: BP 128/79
[2019-01-28] MEDS: naproxen 500mg tablet PO SCH (08:00)
[2019-01-28] MEDS: gabapentin 400mg capsule PO SCH ×2 (08:00→20:33)
[2019-01-28] MEDS: naltrexone 50mg tablet PO SCH (08:01)
[2019-01-28] MEDS: citalopram 20mg tablet PO SCH (08:02)
[2019-01-28] MEDS: folic acid 1mg tablet PO SCH (08:03)
[2019-01-28] MEDS: busPIRone 5mg tablet PO SCH ×2 (08:03→20:32)
[2019-01-28] MEDS: levetiracetam 250mg tablet PO SCH ×2 (08:03→20:32)
[2019-01-28] MEDS: vitamin D (cholecalciferol) 1,000 unit tablet PO SCH (08:04)
[2019-01-28] MEDS: pantoprazole 40mg Tablet.DR PO SCH (08:04)
--- NOTE | 2019-01-28 10:41 | NUR ---
Ct completed [facility]OT[employer] application as there may be funding through [facility] for 30 days of tx. Faxed the application. ERIK Helm Lic# [id number]
--- NOTE | 2019-01-28 17:15 | NUR ---
Nursing Progress Note: Legal hold: VOL Client on voluntary status for DTS Report received from JOSLYN Hamilton with use of SBAR Why are they here: The patient is a 58 year old female admitted to [facility] for depression and suicidal thoughts. She originally presented to the ER on 01/17 reporting that she was suicidal with a plan to drink etoh excessively and take an overdose of her medications. Her BA on admit to the ER was 0.276. She has never had an intentional suicide attempt in the past. She has had one previous short psychiatric hospitalization. She currently is a patient at the [facility]. She originally came to [place] one year ago with a significant other who she has since parted ways with. She has had numerous ER visit that are ETOH related. She had a two week stay in a sober living facility but "It didn't work for me" She also has been at the [facility]. She currently is homeless and has no income. She has applied for SSI. She has had GA in the past. Her only family member in the area who is her brother who she can not stay with because he has cancer but he is emotionally supportive of her. She has chronic alcohol dependance and has been drinking since age 18. Her longest period of sobriety is 3 and 1/2 years. She denies hx of childhood abuse or trauma. Her parents when she was 11. She is wanting help with finding housing. Assessment What has happened this shift: Pt. asleep at start of shift. Pt. awake for breakfast and ate in community room. Pt. took all medications. 1:1 done at bedside, pt. seen filling out application for [employer]. Pt. denies SI/HI, A/V H. Pt. reports she will most likely be discharged next week and is looking forward to treatment. S/I, H/I: Denies A/VH: Denies Sleep: Pt. did not nap on day shift. ADL's: Independent Group attendance: Yes Were meds taken:Yes Any med S/E: None reported nor observed. Mental Status Exam Appearance: Clean and well groomed, wearing street clothes Eye contact: Direct Behavior: Calm, Cooperative, filling out application for substance abuse treatment. Speech: Soft, normal rate and rhythm Mood: "Better" Affect: Blunted with occasional brightening Thought process: Linear, Logical Thought Content: Goal-oriented Cognition: A/Ox4 Insight: Fair to good Judgment: Fair to good Interventions: PRN's used: None Therapeutic interventions: 1:1 therapeutic assessment, maintained safe therapeutic milieu, provided active listening with positive reinforcement, provided medication administration/education/monitoring as needed; Q15 safety checks. Restraints/seclusion/emergency medication: N/A Justification of Continued Inpatient Treatment: Continued therapeutic support and medication management needed to provide stabilization, prevent decompensation, improve coping mechanisms decreasing risk to patient and re-admittance.
[2019-01-28 19:00] VITALS: BP 117/52
[2019-01-28] MEDS: carbamide peroxide 15ml bottle LEFT EAR SCH (20:00)
[2019-01-28] MEDS ORDERED: naproxen 500mg tablet PO PRN (20:10)
[2019-01-28] MEDS: aripiprazole 5mg tablet PO SCH (20:32)
--- NOTE | 2019-01-29 00:35 | NUR ---
Nursing Progress Note: Legal hold: VOL Client on voluntary status for DTS Report received from JOSLYN Scott with use of SBAR Why are they here: The patient is a 58 year old female admitted to [facility] for depression and suicidal thoughts. She originally presented to the ER on 01/17 reporting that she was suicidal with a plan to drink etoh excessively and take an overdose of her medications. Her BA on admit to the ER was 0.276. She has never had an intentional suicide attempt in the past. She has had one previous short psychiatric hospitalization. She currently is a patient at the [facility]. She originally came to [place] one year ago with a significant other who she has since parted ways with. She has had numerous ER visit that are ETOH related. She had a two week stay in a sober living facility but "It didn't work for me" She also has been at the [facility]. She currently is homeless and has no income. She has applied for SSI. She has had GA in the past. Her only family member in the area who is her brother who she can not stay with because he has cancer but he is emotionally supportive of her. She has chronic alcohol dependance and has been drinking since age 18. Her longest period of sobriety is 3 and 1/2 years. She denies hx of childhood abuse or trauma. Her parents when she was 11. She is wanting help with finding housing. Assessment Patient is awake and well oriented. Patient primarily self isolated, she reads books in her room. Patient exhibits linear thought. She is cooperative and friendly with staff. Patient states a plan to discharge to the [facility], and then to [facility]. Patient still describes intermittent depression. She denies S/I or H/I. Patient is setting goals now to work on her alcohol abuse. This patient is advised she is in a safe place, she exhibits understanding. Q15 minute rounding for patient safety. S/I, H/I: Denies A/VH: Denies Sleep: Pt. did not nap on day shift. ADL's: Independent Group attendance: Yes, on day shift. Were meds taken:Yes Any med S/E: None reported nor observed. Mental Status Exam Appearance: Clean and well groomed, wearing street clothes Eye contact: Direct Behavior: Calm, Cooperative, filling out application for substance abuse treatment. Speech: Soft, normal rate and rhythm Mood: Upbeat. Affect: Blunted with occasional brightening Thought process: Linear. Thought Content: Goal-oriented. Insight: Fair to good Judgment: Fair to good Interventions: PRN's used: None Therapeutic interventions: 1:1 therapeutic assessment, maintained safe therapeutic milieu, provided active listening with positive reinforcement, provided medication administration/education/monitoring as needed; Q15 safety checks. Restraints/seclusion/emergency medication: N/A Justification of Continued Inpatient Treatment: Continued therapeutic support and medication management needed to provide stabilization, prevent decompensation, improve coping mechanisms decreasing risk to patient and re-admittance.
[2019-01-29 07:31] VITALS: BP 118/68
[2019-01-29] MEDS: folic acid 1mg tablet PO SCH (07:55)
[2019-01-29] MEDS: citalopram 20mg tablet PO SCH (07:56)
[2019-01-29] MEDS: gabapentin 400mg capsule PO SCH ×2 (07:56→20:52)
[2019-01-29] MEDS: naltrexone 50mg tablet PO SCH (07:57)
[2019-01-29] MEDS: levetiracetam 250mg tablet PO SCH ×2 (07:57→20:52)
[2019-01-29] MEDS: busPIRone 5mg tablet PO SCH ×2 (07:57→20:52)
[2019-01-29] MEDS: vitamin D (cholecalciferol) 1,000 unit tablet PO SCH (07:58)
[2019-01-29] MEDS: pantoprazole 40mg Tablet.DR PO SCH (07:58)
[2019-01-29] MEDS: carbamide peroxide 15ml bottle LEFT EAR SCH ×2 (10:16→20:51)
--- NOTE | 2019-01-29 17:49 | NUR ---
Nursing Progress Note: Legal hold: VOL Client on voluntary status for DTS Report received from Sarah Briones RN with use of SBAR Why are they here: The patient is a 58 year old female admitted to [facility] for depression and suicidal thoughts. She originally presented to the ER on 01/17 reporting that she was suicidal with a plan to drink etoh excessively and take an overdose of her medications. Her BA on admit to the ER was 0.276. She has never had an intentional suicide attempt in the past. She has had one previous short psychiatric hospitalization. She currently is a patient at the [facility]. She originally came to [place] one year ago with a significant other who she has since parted ways with. She has had numerous ER visit that are ETOH related. She had a two week stay in a sober living facility but "It didn't work for me" She also has been at the [facility]. She currently is homeless and has no income. She has applied for SSI. She has had GA in the past. Her only family member in the area who is her brother who she can not stay with because he has cancer but he is emotionally supportive of her. She has chronic alcohol dependance and has been drinking since age 18. Her longest period of sobriety is 3 and 1/2 years. She denies hx of childhood abuse or trauma. Her parents when she was 11. She is wanting help with finding housing. Assessment What has happened this shift: Pt. asleep at start of shift. Pt. ate breakfast in community room and took all medications. Pt. reports she is feeling "good" today. Pt. denies SI/HI, A/V H. Pt. reports she is going to the [facility] Thursday and then will wait to see if she is accepted into [facility]. Pt. is calm and cooperative and goes to groups. Pt. reports she feels the medications are helping her. Pt. attends groups. Pt. seen interacting with patients and staff appropriately. S/I, H/I: Denies A/VH: Denies Sleep: Pt. did not nap on day shift. ADL's: Independent Group attendance: Yes Were meds taken:Yes Any med S/E: None reported nor observed. Mental Status Exam Appearance: Clean and well groomed, wearing street clothes Eye contact: Direct Behavior: Calm and Cooperative Speech: Soft, normal rate and rhythm Mood: "Good" Affect: Flat with occasional brightening Thought process: Linear, Logical Thought Content: Goal-oriented Cognition: A/Ox4 Insight: Fair Judgment: Fair Interventions: PRN's used: None Therapeutic interventions: 1:1 therapeutic assessment, maintained safe therapeutic milieu, provided active listening with positive reinforcement, provided medication administration/education/monitoring as needed; Q15 safety checks. Restraints/seclusion/emergency medication: N/A Justification of Continued Inpatient Treatment: Continued therapeutic support and medication management needed to provide stabilization, prevent decompensation, improve coping mechanisms decreasing risk to patient and re-admittance.
[2019-01-29 19:47] VITALS: BP 114/63
[2019-01-29] MEDS: aripiprazole 5mg tablet PO SCH (20:52)
[2019-01-29] MEDS: traZODone 50mg tablet PO PRN (20:52)
--- NOTE | 2019-01-30 02:14 | NUR ---
Nursing Progress Note: Legal hold: VOL Client on voluntary status for DTS Report received from ROGER Scott with use of SBAR Why are they here: The patient is a 58 year old female admitted to [facility] for depression and suicidal thoughts. She originally presented to the ER on 01/17 reporting that she was suicidal with a plan to drink etoh excessively and take an overdose of her medications. Her BA on admit to the ER was 0.276. She has never had an intentional suicide attempt in the past. She has had one previous short psychiatric hospitalization. She currently is a patient at the [facility]. She originally came to [place] one year ago with a significant other who she has since parted ways with. She has had numerous ER visit that are ETOH related. She had a two week stay in a sober living facility but "It didn't work for me" She also has been at the [facility]. She currently is homeless and has no income. She has applied for SSI. She has had GA in the past. Her only family member in the area who is her brother who she can not stay with because he has cancer but he is emotionally supportive of her. She has chronic alcohol dependance and has been drinking since age 18. Her longest period of sobriety is 3 and 1/2 years. She denies hx of childhood abuse or trauma. Her parents when she was 11. She is wanting help with finding housing. Assessment What has happened this shift: Patient laying in bed reading a book at the beginning of shift. Patient denies depression, SI, HI, V/AH. Patient explained she had many triggering factors leading to her suicidal ideations upon admission to the unit. She briefly elaborated, explaining her had gone to assisted and prior to him going to assisted she had gotten a restraining order against him (she explained the two events are not related). Patient provided PRN Tylenol for knee pain, effective result. Patient isolative, she has remained in her room either reading or sleeping at this time. S/I, H/I: Denies A/VH: Denies Sleep: Refer to sleep assessment ADL's: Independent Group attendance: No groups this shift Were meds taken: Yes Any med S/E: None reported nor observed. Mental Status Exam Appearance: Clean and well groomed, wearing street clothes Eye contact: Direct Behavior: Calm and Cooperative Speech: Soft, normal rate and rhythm Mood: "Good" Affect: Flat with occasional brightening Thought process: Linear, Logical Thought Content: Goal-oriented Cognition: A/Ox4 Insight: Fair Judgment: Fair Interventions: PRN's used: Tylenol, effective Therapeutic interventions: 1:1 therapeutic assessment, maintained safe therapeutic milieu, provided active listening with positive reinforcement, provided medication administration/education/monitoring as needed; Q15 safety checks. Restraints/seclusion/emergency medication: N/A Justification of Continued Inpatient Treatment: Continued therapeutic support and medication management needed to provide stabilization, prevent decompensation, improve coping mechanisms decreasing risk to patient and re-admittance.
[2019-01-30 07:52] VITALS: BP 103/67
[2019-01-30] MEDS: gabapentin 400mg capsule PO SCH ×2 (07:54→20:32)
[2019-01-30] MEDS: busPIRone 5mg tablet PO SCH ×2 (07:54→20:32)
[2019-01-30] MEDS: vitamin D (cholecalciferol) 1,000 unit tablet PO SCH (07:54)
[2019-01-30] MEDS: carbamide peroxide 15ml bottle LEFT EAR SCH ×2 (07:54→20:35)
[2019-01-30] MEDS: cyanocobalamin 500mcg tablet PO SCH (07:55)
[2019-01-30] MEDS: folic acid 1mg tablet PO SCH (07:55)
[2019-01-30] MEDS: naltrexone 50mg tablet PO SCH (07:55)
[2019-01-30] MEDS: citalopram 20mg tablet PO SCH (07:55)
[2019-01-30] MEDS: levetiracetam 250mg tablet PO SCH ×2 (07:55→20:31)
[2019-01-30] MEDS: pantoprazole 40mg Tablet.DR PO SCH (07:55)
--- NOTE | 2019-01-30 10:07 | NUR ---
reassessment: Pt PO 100% regular diet meeting needs. LBM 01/29. No nutrition concerns at this time. Will continue to monitor. Rec: 1. advance to heart healthy diet per 2. routine bowel care Addendum: 01/30/19 at [address] Amended: Links added.
--- NOTE | 2019-01-30 15:40 | NUR ---
Nursing Progress Note: Legal hold: VOL Client on voluntary status for DTS Report received from Sarah Briones RN with use of SBAR Why are they here: The patient is a 58 year old female admitted to [facility] for depression and suicidal thoughts. She originally presented to the ER on 01/17 reporting that she was suicidal with a plan to drink etoh excessively and take an overdose of her medications. Her BA on admit to the ER was 0.276. She has never had an intentional suicide attempt in the past. She has had one previous short psychiatric hospitalization. She currently is a patient at the [facility]. She originally came to [place] one year ago with a significant other who she has since parted ways with. She has had numerous ER visit that are ETOH related. She had a two week stay in a sober living facility but "It didn't work for me" She also has been at the [facility]. She currently is homeless and has no income. She has applied for SSI. She has had GA in the past. Her only family member in the area who is her brother who she can not stay with because he has cancer but he is emotionally supportive of her. She has chronic alcohol dependance and has been drinking since age 18. Her longest period of sobriety is 3 and 1/2 years. She denies hx of childhood abuse or trauma. Her parents when she was 11. She is wanting help with finding housing. Assessment What has happened this shift: Pt. asleep at start of shift. Pt. ate breakfast in community room and took all medications. Pt. reports she is feeling "good" today. Pt. denies SI/HI, A/V H. Pt. reports she is going to the [facility] Thursday and then will wait to see if she is accepted into [facility]. Pt. is calm and cooperative and goes to groups. Pt. reports she feels the medications are helping her. Pt has bright affect and seen interacting with patients and staff appropriately. S/I, H/I: Denies A/VH: Denies Sleep: no naps ADL's: Independent Group attendance: Yes Were meds taken:Yes Any med S/E: None reported nor observed. Mental Status Exam Appearance: Clean and well groomed, wearing street clothes Eye contact: Direct Behavior: Calm and Cooperative Speech: Soft, normal rate and rhythm Mood: "Good" Affect: Flat with occasional brightening Thought process: Linear, Logical Thought Content: Goal-oriented Cognition: A/Ox4 Insight: Fair Judgment: Fair Interventions: PRN's used: None Therapeutic interventions: 1:1 therapeutic assessment, maintained safe therapeutic milieu, provided active listening with positive reinforcement, provided medication administration/education/monitoring as needed; Q15 safety checks. Restraints/seclusion/emergency medication: N/A Justification of Continued Inpatient Treatment: Continued therapeutic support and medication management needed to provide stabilization, prevent decompensation, improve coping mechanisms decreasing risk to patient and re-admittance.
[2019-01-30] MEDS ORDERED: naproxen 500mg tablet PO PRN (17:15)
[2019-01-30 19:31] VITALS: BP 118/70
[2019-01-30] MEDS: aripiprazole 5mg tablet PO SCH (20:31)
[2019-01-30] MEDS: traZODone 50mg tablet PO PRN (20:32)
--- NOTE | 2019-01-31 01:07 | NUR ---
Nursing Progress Note: Legal hold: VOL Client on voluntary status for DTS Report received from JOSLYN Scott with use of SBAR Why are they here: The patient is a 58 year old female admitted to [facility] for depression and suicidal thoughts. She originally presented to the ER on 01/17 reporting that she was suicidal with a plan to drink ETOH excessively and take an overdose of her medications. Her BA on admit to the ER was 0.276. She has never had an intentional suicide attempt in the past. She has had one previous short psychiatric hospitalization. She currently is a patient at the [facility]. She originally came to [place] one year ago with a significant other who she has since parted ways with. She has had numerous ER visit that are ETOH related. She had a two week stay in a sober living facility but "It didn't work for me" She also has been at the [facility]. She currently is homeless and has no income. She has applied for SSI. She has had GA in the past. Her only family member in the area who is her brother who she can not stay with because he has cancer but he is emotionally supportive of her. She has chronic alcohol dependance and has been drinking since age 18. Her longest period of sobriety is 3 and 1/2 years. She denies hx of childhood abuse or trauma. Her parents when she was 11. She is wanting help with finding housing. Assessment What has happened this shift: Pt. awake at start of shift. Sitting in her room. Pt feels ready for discharge. She is aware she is going to the [facility] at dischage. She is hoping to get a bed at [facility] [place] within 2 weeks. Pt. reports she is feeling "good" today. Pt. denies SI/HI, A/V H. Pt. is calm and cooperative and goes to groups. Pt. reports she feels the medications are helping her. Pt has bright affect and seen interacting with patients and staff appropriately. S/I, H/I: Denies A/VH: Denies Sleep: Asleep at this time ADL's: Independent Group attendance: Yes Were meds taken: Yes Any med S/E: None reported nor observed. Mental Status Exam Appearance: Clean and well groomed, wearing street clothes Eye contact: Direct Behavior: Calm and Cooperative Speech: Soft, normal rate and rhythm Mood: "Good" Affect: Flat with occasional brightening Thought process: Linear, Logical Thought Content: Goal-oriented Cognition: A/Ox4 Insight: Fair Judgment: Fair Interventions: PRN's used: None Therapeutic interventions: 1:1 therapeutic assessment, maintained safe therapeutic milieu, provided active listening with positive reinforcement, provided medication administration/education/monitoring as needed; Q15 safety checks. Restraints/seclusion/emergency medication: N/A Justification of Continued Inpatient Treatment: Continued therapeutic support and medication management needed to provide stabilization, prevent decompensation, improve coping mechanisms decreasing risk to patient and re-admittance.
[2019-01-31 07:36] VITALS: BP 111/80
[2019-01-31] MEDS: vitamin D (cholecalciferol) 1,000 unit tablet PO SCH (07:53)
[2019-01-31] MEDS: folic acid 1mg tablet PO SCH (07:53)
[2019-01-31] MEDS: pantoprazole 40mg Tablet.DR PO SCH (07:53)
[2019-01-31] MEDS: levetiracetam 250mg tablet PO SCH ×2 (07:53→20:52)
[2019-01-31] MEDS: gabapentin 400mg capsule PO SCH ×2 (07:53→20:53)
[2019-01-31] MEDS: citalopram 20mg tablet PO SCH (07:54)
[2019-01-31] MEDS: carbamide peroxide 15ml bottle LEFT EAR SCH ×2 (07:54→20:54)
[2019-01-31] MEDS: cyanocobalamin 500mcg tablet PO SCH (07:54)
[2019-01-31] MEDS: busPIRone 5mg tablet PO SCH ×2 (07:54→20:53)
[2019-01-31] MEDS: naltrexone 50mg tablet PO SCH (07:54)
[2019-01-31] MEDS ORDERED: BUSP10TA3 PO (10:40)
[2019-01-31] MEDS ORDERED: CYAN500T63 PO (10:40)
[2019-01-31] MEDS ORDERED: GABA800T11 PO (10:40)
[2019-01-31] MEDS ORDERED: ARIP5TAB60 PO (10:40)
[2019-01-31] MEDS ORDERED: CITA40TA11 PO (10:40)
[2019-01-31] MEDS ORDERED: NAPR-56 PO (10:40)
[2019-01-31] MEDS ORDERED: PANT40TA4 PO (10:40)
[2019-01-31] MEDS ORDERED: LEVE750T PO (10:40)
[2019-01-31] MEDS ORDERED: CHOL100046 PO (10:40)
[2019-01-31] MEDS ORDERED: NALT50TA PO (10:40)
[2019-01-31] MEDS ORDERED: folic acid tablet PO (10:40)
--- NOTE | 2019-01-31 16:56 | NUR ---
Nursing Progress Note: Legal hold: VOL Client on voluntary status for DTS Report received from JOSLYN Paul with use of SBAR Why are they here: The patient is a 58 year old female admitted to [facility] for depression and suicidal thoughts. She originally presented to the ER on 01/17 reporting that she was suicidal with a plan to drink etoh excessively and take an overdose of her medications. Her BA on admit to the ER was 0.276. She has never had an intentional suicide attempt in the past. She has had one previous short psychiatric hospitalization. She currently is a patient at the [facility]. She originally came to [place] one year ago with a significant other who she has since parted ways with. She has had numerous ER visit that are ETOH related. She had a two week stay in a sober living facility but "It didn't work for me" She also has been at the [facility]. She currently is homeless and has no income. She has applied for SSI. She has had GA in the past. Her only family member in the area who is her brother who she can not stay with because he has cancer but he is emotionally supportive of her. She has chronic alcohol dependance and has been drinking since age 18. Her longest period of sobriety is 3 and 1/2 years. She denies hx of childhood abuse or trauma. Her parents when she was 11. She is wanting help with finding housing. Assessment What has happened this shift: Pt awoke and got dressed for the day. Pt had bright affect and was looking forward to discharge. There ended up being issues with her discharge and it got delayed until tomorrow. Pt handled this with cristhian. Pt facial expression showed that she was bummed and when questioned, pt did validate this, but she then took a shower and was smiling and never got overly mad. Pt denies suicide ideation. S/I, H/I: Denies A/VH: Denies Sleep: no naps ADL's: Independent Group attendance: partial Were meds taken:Yes Any med S/E: None reported nor observed. Mental Status Exam Appearance: Clean and well groomed, wearing street clothes Eye contact: Direct Behavior: Calm and Cooperative Speech: Soft, normal rate and rhythm Mood: "Good" Affect: Flat with occasional brightening Thought process: Linear, Logical Thought Content: Goal-oriented Cognition: A/Ox4 Insight: Fair Judgment: Fair Interventions: PRN's used: None Therapeutic interventions: 1:1 therapeutic assessment, maintained safe therapeutic milieu, provided active listening with positive reinforcement, provided medication administration/education/monitoring as needed; Q15 safety checks. Restraints/seclusion/emergency medication: N/A Justification of Continued Inpatient Treatment: Continued therapeutic support and medication management needed to provide stabilization, prevent decompensation, improve coping mechanisms decreasing risk to patient and re-admittance.
[2019-01-31 19:28] VITALS: BP 102/54
[2019-01-31] MEDS: aripiprazole 5mg tablet PO SCH (20:53)
--- NOTE | 2019-01-31 22:51 | NUR ---
Nursing Progress Note: Legal hold: VOL Client on voluntary status for DTS Report received from JOSLYN Brady with use of SBAR Why are they here: The patient is a 58 year old female admitted to [facility] for depression and suicidal thoughts. She originally presented to the ER on 01/17 reporting that she was suicidal with a plan to drink etoh excessively and take an overdose of her medications. Her BA on admit to the ER was 0.276. She has never had an intentional suicide attempt in the past. She has had one previous short psychiatric hospitalization. She currently is a patient at the [facility]. She originally came to [place] one year ago with a significant other who she has since parted ways with. She has had numerous ER visit that are ETOH related. She had a two week stay in a sober living facility but "It didn't work for me" She also has been at the [facility]. She currently is homeless and has no income. She has applied for SSI. She has had GA in the past. Her only family member in the area who is her brother who she can not stay with because he has cancer but he is emotionally supportive of her. She has chronic alcohol dependance and has been drinking since age 18. Her longest period of sobriety is 3 and 1/2 years. She denies hx of childhood abuse or trauma. Her parents when she was 11. She is wanting help with finding housing. Assessment What has happened this shift: Pt in room reading in bed at start of shift. Pt only came out of room for snack. She denies depression or SI. Ptlooking forward to discharge tomorrow. S/I, H/I: Denies A/VH: Denies Sleep: no naps ADL's: Independent Group attendance: partial Were meds taken:Yes Any med S/E: None reported nor observed. Mental Status Exam Appearance: Clean and well groomed, wearing street clothes Eye contact: Direct Behavior: Calm and Cooperative Speech: Soft, normal rate and rhythm Mood: "Good" Affect: Flat with occasional brightening Thought process: Linear, Logical Thought Content: Goal-oriented Cognition: A/Ox4 Insight: Fair Judgment: Fair Interventions: PRN's used: None Therapeutic interventions: 1:1 therapeutic assessment, maintained safe therapeutic milieu, provided active listening with positive reinforcement, provided medication administration/education/monitoring as needed; Q15 safety checks. Restraints/seclusion/emergency medication: N/A Justification of Continued Inpatient Treatment: Continued therapeutic support and medication management needed to provide stabilization, prevent decompensation, improve coping mechanisms decreasing risk to patient and re-admittance. Discharge to [facility] planned for tomorrow.
--- NOTE | 2019-02-01 07:19 | NUR ---
Coordinated discharge today with [place] office. Informed Whole Person Care that Ct is going to [facility]. Ct is going to [facility]. She was unable to go yesterday due to meds not being picked up in time. ERIK Helm Lice # [id number]
[2019-02-01] MEDS: vitamin D (cholecalciferol) 1,000 unit tablet PO SCH (07:34)
[2019-02-01] MEDS: naltrexone 50mg tablet PO SCH (07:35)
[2019-02-01] MEDS: folic acid 1mg tablet PO SCH (07:35)
[2019-02-01] MEDS: levetiracetam 250mg tablet PO SCH (07:35)
[2019-02-01] MEDS: cyanocobalamin 500mcg tablet PO SCH (07:35)
[2019-02-01] MEDS: carbamide peroxide 15ml bottle LEFT EAR SCH (07:35)
[2019-02-01] MEDS: busPIRone 5mg tablet PO SCH (07:35)
[2019-02-01] MEDS: gabapentin 400mg capsule PO SCH (07:35)
[2019-02-01] MEDS: pantoprazole 40mg Tablet.DR PO SCH (07:35)
[2019-02-01] MEDS: citalopram 20mg tablet PO SCH (07:35)
[2019-02-01 08:00] VITALS: BP 130/55
--- NOTE | 2019-02-01 08:41 | NUR ---
Discharge Note: Pt picked up by [facility] hi lo driver at 0840 for discharge to the [facility]. Discharge Instructions including f/u appts and medications reviewed with pt. and she verbalized understanding, signed and copies sent with pt. All medications sent with pt. Pt declined smoking cessation information stating she is not a tobacco user. Pt denies suicidal thoughts and is looking forward to discharge to [facility]. All belongings returned to the pt and she agreed she received all that she came in with and signed for them.
== END 2019-02-01 08:40 | disposition short-term general hospital (02) | DRG 751 ==
LOC: ADULT MH 17:06
PROVIDERS: ADMIT Psychiatry & Neurology Psychiatry; ATTEND Psychiatry & Neurology Psychiatry
DX: F33.2 Major depressive disorder, recurrent severe without psychotic features (principal); E87.0 Hyperosmolality and hypernatremia; R45.851 Suicidal ideations; G62.9 Polyneuropathy, unspecified; E78.5 Hyperlipidemia, unspecified; E87.6 Hypokalemia; F10.20 Alcohol dependence, uncomplicated; E86.0 Dehydration; F41.9 Anxiety disorder, unspecified; G40.909 Epilepsy, unspecified, not intractable, without status epilepticus; G89.29 Other chronic pain; K21.9 Gastro-esophageal reflux disease without esophagitis; Z59.0 Homelessness; Z79.899 Other long term (current) drug therapy; Z80.8 Family history of malignant neoplasm of other organs or systems; Z90.710 Acquired absence of both cervix and uterus; Z23 Encounter for immunization; Z91.14 Patient's other noncompliance with medication regimen; Z88.0 Allergy status to penicillin; Z88.2 Allergy status to sulfonamides; Z88.8 Allergy status to other drugs, medicaments and biological substances
CPT/HCPCS: 36415; 80053; 80061; 83036; 83735; 84100; 85025; 87081; Q2037; Z7610

== ENCOUNTER 2019-03-30 18:04 | Emergency (ER) | payer MEDICAID ==
[~2019-03-30] VITALS: Ht 162.6 cm; Wt 64.5 kg
[~2019-03-30 18:04] MED LIST changes: +ARIP5TAB14 PO; +ARIP5TAB60 PO; -BUSP10TA11 PO; +BUSP10TA3 PO; +CHOL100046 PO; -CITA20TA28 PO; +CITA40TA11 PO; +CYAN500T63 PO; -ERGO500056 PO; +LEVE750T PO; -LEVE750T6 PO; -MELO-102 PO; +NAPR-56 PO; -PANT-47 PO; +PANT40TA4 PO; +folic acid tablet PO
[2019-03-30 19:22] LABS: BASOPHILS # (AUTO) 0.2 X10'3 (0-0.2); EOSINOPHILS # (AUTO) 0.1 X10'3 (0-0.9); EOSINOPHILS % (AUTO) 1.4 % (0-6); MEAN CORPUSCULAR HGB CONC 32.7 g/dL (33.0-36.5); MONOCYTES # (AUTO) 0.7 X10'3 (0-0.9); MONOCYTES % (AUTO) 7.5 % (2-12)
[2019-03-30 19:24] LABS: BASOPHILS % (AUTO) 2.3 % (0-1); HEMOGLOBIN 12.1 g/dl (12.0-16.0); LYMPHOCYTES # (AUTO) 1.8 X10'3 (1.1-4.8); LYMPHOCYTES % (AUTO) 18.6 % (21-51); MEAN CORPUSCULAR HEMOGLOBIN 29.4 PG (27.0-31.0); MEAN PLATELET VOLUME 10.3 FL (7.4-10.4); NEUTROPHILS # (AUTO) 6.7 X10'3 (1.8-7.7); NEUTROPHILS % (AUTO) 70.2 % (42-75); PLATELET COUNT 177 X10'3 (140-440); RED BLOOD COUNT 4.11 X10'6 (4.20-5.60); RED CELL DISTRIBUTION WIDTH 15.5 % (11.5-14.5); WHITE BLOOD COUNT 9.6 X10'3 (4.5-11.0)
[2019-03-30 19:37] LABS: ALANINE AMINOTRANSFERASE 18 U/L (12-78); ALBUMIN 3.8 G/DL (3.4-5.0); ALBUMIN/GLOBULIN RATIO 1.1 (1.1-1.5); ALKALINE PHOSPHATASE 95 IU/L (46-116); ANION GAP 9 (8-16); ASPARTATE AMINO TRANSFERASE 14 U/L (10-37); BILIRUBIN,TOTAL 0.2 MG/DL (0.1-1.0); BLOOD UREA NITROGEN 13 MG/DL (7-18); BUN/CREATININE RATIO 16.7 (6.6-38.0); CALCIUM 8.9 MG/DL (8.5-10.1); CHLORIDE 105 MMOL/L (99-107); CREATININE 0.78 MG/DL (0.40-0.90); GLUCOSE 94 MG/DL (70-104); SODIUM 142 MMOL/L (135-145); TOTAL CARBON DIOXIDE 28.4 MMOL/L (24-32); TOTAL PROTEIN 7.2 G/DL (6.4-8.2); eGFR 76 ML/MIN
[2019-03-30 21:16] VITALS: BP 120/84
== END 2019-03-30 20:08 | disposition home or self-care (01) ==
LOC: ER 18:05
DX: Z13.89 Encounter for screening for other disorder (principal); F41.9 Anxiety disorder, unspecified; F10.10 Alcohol abuse, uncomplicated; Z86.69 Personal history of other diseases of the nervous system and sense organs; G89.29 Other chronic pain; Z90.49 Acquired absence of other specified parts of digestive tract; Z56.0 Unemployment, unspecified; Z59.0 Homelessness; Z88.0 Allergy status to penicillin; Z88.2 Allergy status to sulfonamides; Z88.8 Allergy status to other drugs, medicaments and biological substances; Z79.899 Other long term (current) drug therapy
CPT/HCPCS: 36415; 80053; 85025; 99283

== ENCOUNTER 2019-04-11 13:47 | Emergency (ER) | payer MEDICAID ==
[~2019-04-11] VITALS: Ht 162.6 cm; Wt 60.0 kg
--- NOTE | 2019-04-11 14:30 | NUR ---
Patient arrived on the unit ambulating self in no apparent distress, however she does appear under the influence of alcohol and states she is. She arrived from [facility] with SI and a plan to take trazodone and drink alcohol. All personal items were inventoried and stored in the ambulance bay lockers. Pt had 2 bottles of alcohol found on her person and these were confiscated. She is resting in bed at this time in no distress. CIWA at a 2 currently. Pt has a PIV with NS running. She is disoriented but cooperative and easily redirectable. Will continue to monitor. Pt denies tobacco use.
[2019-04-11] MEDS ORDERED: normal saline 1000ML IV soln IVB ONE (16:00)
[2019-04-11] MEDS ORDERED: thiamine 100mg/ml 2ml inj. IV ONE (16:00)
[2019-04-11] MEDS ORDERED: folic acid 1mg/0.2ml inj IV ONE (16:00)
--- NOTE | 2019-04-11 16:30 | NUR ---
Pt is resting in bed peacefully. No distress observed.
[2019-04-11 17:08] LABS: ALANINE AMINOTRANSFERASE 18 U/L (12-78); ALBUMIN 3.6 G/DL (3.4-5.0); ALKALINE PHOSPHATASE 83 IU/L (46-116); ANION GAP 10 (8-16); ASPARTATE AMINO TRANSFERASE 15 U/L (10-37); BILIRUBIN,TOTAL 0.2 MG/DL (0.1-1.0); BLOOD UREA NITROGEN 11 MG/DL (7-18); BUN/CREATININE RATIO 14.1 (6.6-38.0); CALCIUM 8.7 MG/DL (8.5-10.1); CHLORIDE 108 MMOL/L (99-107); CREATININE 0.78 MG/DL (0.40-0.90); GLUCOSE 80 MG/DL (70-104); POTASSIUM 3.7 MMOL/L (3.5-5.1); SODIUM 145 MMOL/L (135-145); TOTAL CARBON DIOXIDE 27.2 MMOL/L (24-32); TOTAL PROTEIN 7.2 G/DL (6.4-8.2); eGFR 76 ML/MIN
[2019-04-11 17:14] LABS: CLARITY,URINE CLEAR (Clear); COLOR,URINE STRAW (Yellow); GLUCOSE, URINE NEGATIVE (Neg); KETONES,URINE NEGATIVE (Neg); LEUKOCYTE ESTERASE ,URINE NEGATIVE (Neg); NITRITES, URINE NEGATIVE (Neg); OCCULT BLOOD,URINE NEGATIVE (Neg); PROTEIN,URINE NEGATIVE (Neg); UROBILINOGEN,URINE 0.2 E.U/dL (0.2-1.0)
[2019-04-11 17:15] LABS: UA COLLECTION TYPE CLN CATCH MIDSTREAM
[2019-04-11 17:17] LABS: ETHANOL 0.241 GM/DL (0.0-0.010)
[2019-04-11 17:21] LABS: BASOPHILS # (AUTO) 0.2 X10'3 (0-0.2); EOSINOPHILS # (AUTO) 0.1 X10'3 (0-0.9); HEMOGLOBIN 12.6 g/dl (12.0-16.0); MEAN PLATELET VOLUME 9.5 FL (7.4-10.4); MONOCYTES # (AUTO) 0.5 X10'3 (0-0.9)
[2019-04-11 17:23] LABS: BASOPHILS % (AUTO) 2.8 % (0-1); EOSINOPHILS % (AUTO) 1.5 % (0-6); HEMATOCRIT 37.7 % (35.0-45.0); LYMPHOCYTES # (AUTO) 2.3 X10'3 (1.1-4.8); LYMPHOCYTES % (AUTO) 34.6 % (21-51); MEAN CORPUSCULAR HEMOGLOBIN 29.4 PG (27.0-31.0); MEAN CORPUSCULAR HGB CONC 33.5 g/dL (33.0-36.5); MONOCYTES % (AUTO) 7.7 % (2-12); NEUTROPHILS # (AUTO) 3.6 X10'3 (1.8-7.7); NEUTROPHILS % (AUTO) 53.4 % (42-75); PLATELET COUNT 237 X10'3 (140-440); RED BLOOD COUNT 4.29 X10'6 (4.20-5.60); RED CELL DISTRIBUTION WIDTH 14.8 % (11.5-14.5); WHITE BLOOD COUNT 6.8 X10'3 (4.5-11.0)
[2019-04-11 17:24] LABS: URINE AMPHETAMINE SCREEN NEGATIVE (Neg); URINE BARBITUATE SCREEN NEGATIVE (Neg); URINE BENZODIAZEPINES SCREEN NEGATIVE (Neg); URINE CANNABINOID SCREEN NEGATIVE (Neg); URINE COCAINE SCREEN NEGATIVE (Neg); URINE METHADONE SCREEN NEGATIVE (Neg); URINE OPIATE SCREEN NEGATIVE (Neg); URINE PHENCYCLIDINE SCREEN NEGATIVE (Neg)
--- NOTE | 2019-04-11 19:01 | NUR ---
Patient laying on hospital bed resting comfortably, I will continue to monitor
[2019-04-11] MEDS ORDERED: LORA10TA7 PO (20:02)
[2019-04-11] MEDS ORDERED: FLUT9.9S16 (20:02)
[2019-04-11] MEDS ORDERED: LEVE10002 PO (20:02)
[2019-04-12] MEDS ORDERED: BUSP10TA11 PO (08:30)
[2019-04-12] MEDS ORDERED: CHOL200052 PO (08:30)
[2019-04-12] MEDS ORDERED: ARIP5TAB14 PO (08:30)
[2019-04-12] MEDS ORDERED: NALT50TA PO (08:30)
[2019-04-12] MEDS ORDERED: CYAN500T63 PO (08:30)
[2019-04-12] MEDS ORDERED: CITA20TA28 PO (08:30)
[2019-04-12] MEDS ORDERED: GABA800T11 PO (08:30)
[2019-04-12] MEDS ORDERED: PANT40TA4 PO (08:30)
[2019-04-12] MEDS ORDERED: FOLI0.4T14 PO (08:30)
[2019-04-12] MEDS ORDERED: folic acid 1mg tablet PO SCH (09:00)
[2019-04-12] MEDS ORDERED: citalopram 20mg tablet PO SCH (09:00)
[2019-04-12] MEDS ORDERED: loratadine 10mg tablet PO SCH (09:00)
[2019-04-12] MEDS ORDERED: cyanocobalamin 500mcg tablet PO SCH (09:00)
[2019-04-12] MEDS ORDERED: naltrexone 50mg tablet PO SCH (09:00)
[2019-04-12] MEDS ORDERED: pantoprazole 40mg Tablet.DR PO SCH (09:00)
[2019-04-12] MEDS ORDERED: vitamin D (cholecalciferol) 1,000 unit tablet PO SCH (09:05)
[2019-04-12] MEDS ORDERED: busPIRone 5mg tablet PO SCH (09:05)
[2019-04-12] MEDS ORDERED: gabapentin 400mg capsule PO SCH (09:07)
[2019-04-12] MEDS ORDERED: levetiracetam 250mg tablet PO SCH (09:30)
[2019-04-12] MEDS ORDERED: fluticasone nasal spray 16GM bottle NS SCH (09:30)
--- NOTE | 2019-04-12 10:30 | NUR ---
Patient resting with eyes closed. Assumed care of pt from JOSLYN White
[2019-04-12 15:09] LABS: URINE HCG NEGATIVE (NEG)
--- NOTE | 2019-04-12 15:30 | NUR ---
Rec call from [facility] that they will accept patient tonight with a bean picker time of [id number]. Accepting Md Pagan.
[2019-04-12 17:32] VITALS: BP 114/77
--- NOTE | 2019-04-12 18:39 | NUR ---
Received report from RN, pt. resting with eyes closed.
[2019-04-12] MEDS ORDERED: aripiprazole 5mg tablet PO SCH (21:00)
== END 2019-04-12 21:23 ==
LOC: ER 13:47
DX: F10.129 Alcohol abuse with intoxication, unspecified (principal); F32.9 Major depressive disorder, single episode, unspecified; R45.851 Suicidal ideations; G62.9 Polyneuropathy, unspecified; G89.29 Other chronic pain; F41.9 Anxiety disorder, unspecified; Z59.0 Homelessness; Z56.0 Unemployment, unspecified; Z90.710 Acquired absence of both cervix and uterus; Z98.890 Other specified postprocedural states; Z79.899 Other long term (current) drug therapy; Z88.0 Allergy status to penicillin; Z88.2 Allergy status to sulfonamides; Z88.8 Allergy status to other drugs, medicaments and biological substances; Y90.9 Presence of alcohol in blood, level not specified
CPT/HCPCS: 36415; 80053; 80305; 80320; 81003; 81025; 84443; 85025; 96374; 96375; 99285; J3411; J3490; J7030

== ENCOUNTER 2019-05-02 08:20 | Outpatient (CLI) | payer MEDICAID ==
[~2019-05-02 08:20] MED LIST changes: -ARIP5TAB60 PO; +BUSP10TA11 PO; -BUSP10TA3 PO; -CHOL100046 PO; +CHOL200052 PO; +CITA20TA28 PO; -CITA40TA11 PO; +FLUT9.9S16; +FOLI0.4T14 PO; +LEVE10002 PO; -LEVE750T PO; +LORA10TA7 PO; -NAPR-56 PO; -folic acid tablet PO
== END 2019-05-02 23:59 | disposition home or self-care (01) ==
LOC: RAD 08:20
PROVIDERS: ATTEND Psychiatry & Neurology Neurology
DX: R94.01 Abnormal electroencephalogram [EEG] (principal); R56.9 Unspecified convulsions
CPT/HCPCS: 95816

== ENCOUNTER 2019-05-17 14:28 | Emergency (ER) | payer MEDICAID ==
[~2019-05-17] VITALS: Ht 162.6 cm; Wt 65.0 kg
--- NOTE | 2019-05-17 14:58 | NUR ---
Pt is calm and cooperative at this time. Pt is in green scrubs and awaiting lab results for further evaluation.
[2019-05-17 15:36] LABS: BASOPHILS # (AUTO) 0.1 X10'3 (0-0.2); BASOPHILS % (AUTO) 1.5 % (0-1); EOSINOPHILS # (AUTO) 0.2 X10'3 (0-0.9); EOSINOPHILS % (AUTO) 2.5 % (0-6); HEMATOCRIT 37.5 % (35.0-45.0); HEMOGLOBIN 12.2 g/dl (12.0-16.0); LYMPHOCYTES # (AUTO) 2.1 X10'3 (1.1-4.8); LYMPHOCYTES % (AUTO) 32.8 % (21-51); MEAN CORPUSCULAR HEMOGLOBIN 28.5 PG (27.0-31.0); MEAN CORPUSCULAR HGB CONC 32.5 g/dL (33.0-36.5); MEAN CORPUSCULAR VOLUME 87.9 FL (78-98); MEAN PLATELET VOLUME 9.2 FL (7.4-10.4); MONOCYTES # (AUTO) 0.7 X10'3 (0-0.9); MONOCYTES % (AUTO) 10.5 % (2-12); NEUTROPHILS # (AUTO) 3.3 X10'3 (1.8-7.7); NEUTROPHILS % (AUTO) 52.7 % (42-75); PLATELET COUNT 200 X10'3 (140-440); RED BLOOD COUNT 4.26 X10'6 (4.20-5.60); RED CELL DISTRIBUTION WIDTH 16.5 % (11.5-14.5); WHITE BLOOD COUNT 6.3 X10'3 (4.5-11.0)
[2019-05-17 15:45] LABS: ALANINE AMINOTRANSFERASE 16 U/L (12-78); ALBUMIN 3.6 G/DL (3.4-5.0); ALBUMIN/GLOBULIN RATIO 1.1 (1.1-1.5); ALKALINE PHOSPHATASE 105 IU/L (46-116); ANION GAP 13 (8-16); ASPARTATE AMINO TRANSFERASE 14 U/L (10-37); BILIRUBIN,TOTAL 0.2 MG/DL (0.1-1.0); BLOOD UREA NITROGEN 17 MG/DL (7-18); BUN/CREATININE RATIO 22.1 (6.6-38.0); CALCIUM 8.5 MG/DL (8.5-10.1); CHLORIDE 107 MMOL/L (99-107); CREATININE 0.77 MG/DL (0.40-0.90); GLUCOSE 95 MG/DL (70-104); POTASSIUM 3.3 MMOL/L (3.5-5.1); SODIUM 145 MMOL/L (135-145); TOTAL CARBON DIOXIDE 24.8 MMOL/L (24-32); TOTAL PROTEIN 6.8 G/DL (6.4-8.2); eGFR 77 ML/MIN
[2019-05-17] MEDS ORDERED: potassium Cl 20 mEq SR tablet PO STA (15:49)
--- NOTE | 2019-05-17 15:53 | NUR ---
No change in condition. Pt has even and unlabored respirations.
[2019-05-17 15:54] LABS: ETHANOL 0.137 GM/DL (0.0-0.010)
[2019-05-17 15:56] LABS: CLARITY,URINE CLEAR (Clear); COLOR,URINE YELLOW (Yellow); GLUCOSE, URINE NEGATIVE (Neg); KETONES,URINE NEGATIVE (Neg); LEUKOCYTE ESTERASE ,URINE TRACE (Neg); NITRITES, URINE NEGATIVE (Neg); OCCULT BLOOD,URINE NEGATIVE (Neg); PROTEIN,URINE NEGATIVE (Neg); UROBILINOGEN,URINE 0.2 E.U/dL (0.2-1.0)
[2019-05-17 15:58] LABS: UA COLLECTION TYPE CLN CATCH MIDSTREAM
[2019-05-17 16:10] LABS: SQUAMOUS EPITHELIAL CELL,UR FEW /LPF (FEW); URINE AMPHETAMINE SCREEN NEGATIVE (Neg); URINE BARBITUATE SCREEN NEGATIVE (Neg); URINE BENZODIAZEPINES SCREEN NEGATIVE (Neg); URINE CANNABINOID SCREEN NEGATIVE (Neg); URINE COCAINE SCREEN NEGATIVE (Neg); URINE METHADONE SCREEN NEGATIVE (Neg); URINE OPIATE SCREEN NEGATIVE (Neg); URINE PHENCYCLIDINE SCREEN NEGATIVE (Neg)
[2019-05-17 16:11] LABS: BACTERIA,URINE FEW /HPF (Neg); MUCUS STRANDS FEW /LPF (Neg); RBC,URINE 0-2 /HPF (0-2); WBC,URINE 0-4 /HPF (0-4)
--- NOTE | 2019-05-17 16:49 | NUR ---
Pt has eaten a snack to hold her over until dinner tray arrives. Pt is calm and cooperative currently.
--- NOTE | 2019-05-17 17:37 | NUR ---
Patient transferred to OF Bed 25, ambulatory, steady gait.
--- NOTE | 2019-05-17 17:37 | NUR ---
Pt ambulatory, with steady gait, with ED staff from ED bed 15 to ED bed 25 (ED overflow) for further monitoring while awaiting mental health evaluation from [facility]. JOSLYN Clancy assumed care of the patient. Pt remains calm and cooperative.
--- NOTE | 2019-05-17 18:30 | NUR ---
Patient resting quietly. Patient is cooperative. She estates she was depressed and suicidal. Re: ex going to nursing home. Patilent has a blunted affect. Patient has a plan to OD on medications.
--- NOTE | 2019-05-17 19:30 | NUR ---
Patient has finished dinner. She is reading a book.
--- NOTE | 2019-05-17 21:00 | NUR ---
Patient is sleeping quietly in bed. Low fowlers position. Given warm blankets.
--- NOTE | 2019-05-17 21:03 | NUR ---
PACKET FAXED TO [facility]
--- NOTE | 2019-05-17 21:45 | NUR ---
Patient sleeping quietly on her right side.
--- NOTE | 2019-05-17 22:30 | NUR ---
Patient sleeping quietly, low fowlers position.
--- NOTE | 2019-05-17 23:50 | NUR ---
Patient sleeping quietly.
--- NOTE | 2019-05-18 00:09 | NUR ---
pt observed resting calmly on side with eyes closed. respirations WNL
--- NOTE | 2019-05-18 01:28 | NUR ---
Patient repositioned in bed. Sleeping.
--- NOTE | 2019-05-18 03:00 | NUR ---
Patient remains asleep. In view from nursing station.
--- NOTE | 2019-05-18 03:58 | NUR ---
Patient sleeping on her left side.
--- NOTE | 2019-05-18 04:29 | NUR ---
Patient sleeping on her left side.
[2019-05-18 05:41] VITALS: BP 132/78
--- NOTE | 2019-05-18 06:15 | NUR ---
Patient in low fowlers position sleeping.
--- NOTE | 2019-05-18 07:03 | NUR ---
Patient sleeping supine. No distress observed. Continue to monitor.
--- NOTE | 2019-05-18 08:10 | NUR ---
Patient eating breakfast. No distress observed. Continue to monitor.
[2019-05-18] MEDS ORDERED: LEVE10006 PO (08:11)
[2019-05-18] MEDS ORDERED: MELO-102 PO (08:13)
--- NOTE | 2019-05-18 10:15 | NUR ---
Patient is now on a 5150 hold. Patient calm and in no distress. Continue to monitor.
[2019-05-18] MEDS ORDERED: BUPR300T53 PO (10:27)
[2019-05-18] MEDS ORDERED: BUS15T PO (10:27)
--- NOTE | 2019-05-18 12:04 | NUR ---
Patient reclining and reading in bed. No distress observed. Continue to monitor.
--- NOTE | 2019-05-18 13:15 | NUR ---
Patient eating lunch. No distress observed. Continue to monitor.
--- NOTE | 2019-05-18 14:11 | NUR ---
Patient reading in bed. No distress observed. Continue to monitor.
[2019-05-18] MEDS ORDERED: levetiracetam 250mg tablet PO ONE (14:50)
--- NOTE | 2019-05-18 15:55 | NUR ---
Patient getting dressed to go to [facility]. No distress observed. Continue to monitor.
[2019-05-18] MEDS ORDERED: levetiracetam 250mg tablet PO SCH (20:00)
[2019-05-18] MEDS ORDERED: gabapentin 400mg capsule PO SCH (20:00)
[2019-05-18] MEDS ORDERED: busPIRone 15mg tablet PO SCH (20:00)
[2019-05-18] MEDS ORDERED: buPROPion SR 150mg tablet PO SCH (20:00)
[2019-05-19] MEDS ORDERED: MELOXICAM 15 MG PO SCH (08:00)
[2019-05-19] MEDS ORDERED: fluticasone nasal spray 16GM bottle NS SCH (08:00)
== END 2019-05-18 16:04 ==
LOC: ER 14:28
DX: R45.851 Suicidal ideations (principal); F32.9 Major depressive disorder, single episode, unspecified; G89.29 Other chronic pain; F41.9 Anxiety disorder, unspecified; Z90.710 Acquired absence of both cervix and uterus; Z98.890 Other specified postprocedural states; Z88.0 Allergy status to penicillin; Z88.2 Allergy status to sulfonamides; Z88.8 Allergy status to other drugs, medicaments and biological substances; Z79.899 Other long term (current) drug therapy
CPT/HCPCS: 36415; 80053; 80305; 80320; 81001; 84443; 85025; 99285

== ENCOUNTER 2021-01-24 12:01 | Inpatient (IN) | payer MEDICARE, MEDICAID ==
[~2021-01-24] VITALS: Ht 162.6 cm; Wt 72.0 kg
[~2021-01-24 12:01] MED LIST changes: -ARIP5TAB14 PO; +BUPR300T53 PO; +BUS15T PO; -BUSP10TA11 PO; -CHOL200052 PO; -CITA20TA28 PO; -CYAN500T63 PO; -FOLI0.4T14 PO; -LEVE10002 PO; +LEVE10006 PO; -LORA10TA7 PO; +MELO-102 PO; -NALT50TA PO; -PANT40TA4 PO
[2021-01-24] MEDS ORDERED: ondansetron/PF 4mg/2ml inj IV ONE (12:25)
[2021-01-24] MEDS ORDERED: normal saline 1000ML IV soln IV ONE (12:25)
[2021-01-24 12:41] LABS: BASOPHILS # (AUTO) 0.1 X10'3 (0-0.2); BASOPHILS % (AUTO) 1.1 % (0-1); EOSINOPHILS # (AUTO) 0.1 X10'3 (0-0.9); EOSINOPHILS % (AUTO) 0.6 % (0-6); HEMATOCRIT 33.8 % (35.0-45.0); HEMOGLOBIN 10.8 g/dl (12.0-16.0); LYMPHOCYTES # (AUTO) 2.2 X10'3 (1.1-4.8); LYMPHOCYTES % (AUTO) 19.5 % (21-51); MEAN CORPUSCULAR HEMOGLOBIN 28.3 PG (27.0-31.0); MEAN CORPUSCULAR VOLUME 88.3 FL (78-98); MEAN PLATELET VOLUME 9.6 FL (7.4-10.4); MONOCYTES % (AUTO) 8.8 % (2-12); NEUTROPHILS # (AUTO) 7.8 X10'3 (1.8-7.7); PLATELET COUNT 289 X10'3 (140-440); RED BLOOD COUNT 3.82 X10'6 (4.20-5.60); RED CELL DISTRIBUTION WIDTH 17.6 % (11.5-14.5); WHITE BLOOD COUNT 11.1 X10'3 (4.5-11.0)
[2021-01-24 12:54] LABS: ALBUMIN 2.7 G/DL (3.4-5.0); ANION GAP 14 (8-16); BILIRUBIN,TOTAL 0.5 MG/DL (0.1-1.0); BLOOD UREA NITROGEN 19 MG/DL (7-18); CALCIUM 8.1 MG/DL (8.5-10.1); CHLORIDE 101 MMOL/L (99-107); CREATININE 0.76 MG/DL (0.40-0.90); GLUCOSE 112 MG/DL (70-104); SODIUM 140 MMOL/L (135-145); TOTAL PROTEIN 6.2 G/DL (6.4-8.2); eGFR 78 ML/MIN
[2021-01-24 12:55] LABS: ALANINE AMINOTRANSFERASE 22 U/L (12-78); ALBUMIN/GLOBULIN RATIO 0.8 (1.1-1.5); ALKALINE PHOSPHATASE 122 IU/L (46-116); ASPARTATE AMINO TRANSFERASE 16 U/L (10-37)
[2021-01-24 12:56] LABS: POTASSIUM 2.5 MMOL/L (3.5-5.1)
[2021-01-24] MEDS ORDERED: potassium Cl 20 mEq SR tablet PO ONE (13:05)
[2021-01-24] MEDS ORDERED: potassium Cl 10 mEq/100mL bag IV ONE ×2 (13:05→15:00)
[2021-01-24 14:13] LABS: ETHANOL 0.074 GM/DL (0.0-0.010)
[2021-01-24] MEDS ORDERED: pantoprazole 40 MG vial IV ONE (15:00)
[2021-01-24] MEDS ORDERED: pantoprazole IV 80 MG in normal saline 100ml IV soln 100 ML IV ONE ×4 (15:00)
[2021-01-24] MEDS ORDERED: LEVE750T PO (15:06)
[2021-01-24] MEDS ORDERED: LAMO100T PO (15:06)
[2021-01-24] MEDS ORDERED: magnesium hydroxide 30ml (MOM) UD suspension PO PRN (15:15)
[2021-01-24] MEDS ORDERED: acetaminophen 325mg tablet PO PRN ×2 (15:15)
[2021-01-24] MEDS ORDERED: morphine 2 MG/ML inj. syringe IV PRN ×2 (15:15)
[2021-01-24] MEDS ORDERED: ondansetron/PF 4mg/2ml inj IV PRN (15:15)
[2021-01-24] MEDS ORDERED: mag hydrox/Alum hydrox/simeth 30ml oral suspension PO PRN (15:15)
[2021-01-24] MEDS ORDERED: HYDROcodone/acetaminophen 5mg/325mg tablet PO PRN (15:15)
[2021-01-24 15:55] LABS: OCCULT BLOOD STOOL POSITIVE (Neg)
[2021-01-24 16:04] LABS: MAGNESIUM 1.6 MG/DL (1.5-2.4); PHOSPHORUS 2.1 MG/DL (2.3-4.5)
[2021-01-24] MEDS: potassium Cl 20mEq in NS 1,000 ML IV SCH (16:27)
[2021-01-24 16:47] LABS: PARTIAL THROMBOPLASTIN TIME 24 SECONDS (22-32)
[2021-01-24 19:30] VITALS: BP 103/64
[2021-01-24] MEDS: docusate sod 100mg capsule PO SCH (20:00)
[2021-01-24 20:33] LABS: CLARITY,URINE SLIGHTLY CLOUDY (Clear); COLOR,URINE YELLOW (Yellow); GLUCOSE, URINE NEGATIVE (Neg); KETONES,URINE NEGATIVE (Neg); NITRITES, URINE NEGATIVE (Neg); OCCULT BLOOD,URINE NEGATIVE (Neg); PROTEIN,URINE TRACE mg/dl (Neg); UA COLLECTION TYPE CLN CATCH MIDSTREAM
[2021-01-24 20:34] LABS: LEUKOCYTE ESTERASE ,URINE TRACE (Neg); UROBILINOGEN,URINE 0.2 E.U/dL (0.2-1.0)
[2021-01-24 20:44] LABS: BACTERIA,URINE 1+ /HPF (Neg); MUCUS STRANDS FEW /LPF (Neg); RBC,URINE 0-2 /HPF (0-2); SQUAMOUS EPITHELIAL CELL,UR FEW /LPF (FEW); TRANSITIONAL EPI CELLS,URINE FEW /HPF; WBC CLUMPS,URINE FEW /HPF (NEGATIVE); WBC,URINE 20-30 /HPF (0-4)
[2021-01-24] MEDS: gabapentin 400mg capsule PO SCH (21:11)
[2021-01-24] MEDS: levetiracetam 250mg tablet PO SCH (21:11)
[2021-01-24] MEDS: lamoTRIgine 100mg tablet PO SCH (21:11)
[2021-01-24] MEDS: pantoprazole 40MG/NS 100ML BAG 100 ML IV SCH (23:00)
[2021-01-25] VITALS (11 sets, daily range): BP systolic 97–123; BP diastolic 41–66
[2021-01-25] MEDS: pantoprazole 40MG/NS 100ML BAG 100 ML IV SCH ×5 (01:00→21:00)
[2021-01-25] MEDS: potassium Cl 20mEq in NS 1,000 ML IV SCH ×3 (01:15→21:15)
[2021-01-25 07:26] LABS: BASOPHILS # (AUTO) 0.2 X10'3 (0-0.2); BASOPHILS % (AUTO) 2.6 % (0-1); EOSINOPHILS # (AUTO) 0.1 X10'3 (0-0.9); EOSINOPHILS % (AUTO) 2.4 % (0-6); LYMPHOCYTES # (AUTO) 2.2 X10'3 (1.1-4.8); MEAN CORPUSCULAR VOLUME 88.3 FL (78-98)
[2021-01-25 07:28] LABS: HEMATOCRIT 28.7 % (35.0-45.0); HEMOGLOBIN 9.4 g/dl (12.0-16.0); LYMPHOCYTES % (AUTO) 36.9 % (21-51); MEAN CORPUSCULAR HGB CONC 32.8 g/dL (33.0-36.5); MEAN PLATELET VOLUME 9.6 FL (7.4-10.4); MONOCYTES # (AUTO) 0.5 X10'3 (0-0.9); MONOCYTES % (AUTO) 7.9 % (2-12); NEUTROPHILS % (AUTO) 50.2 % (42-75); PLATELET COUNT 252 X10'3 (140-440); RED BLOOD COUNT 3.25 X10'6 (4.20-5.60); RED CELL DISTRIBUTION WIDTH 20.4 % (11.5-14.5)
[2021-01-25 07:41] LABS: ALBUMIN 2.2 G/DL (3.4-5.0); ANION GAP 11 (8-16); BLOOD UREA NITROGEN 15 MG/DL (7-18); BUN/CREATININE RATIO 21.7 (6.6-38.0); CALCIUM 7.3 MG/DL (8.5-10.1); CHLORIDE 109 MMOL/L (99-107); CREATININE 0.69 MG/DL (0.40-0.90); GLUCOSE 95 MG/DL (70-104); POTASSIUM 3.2 MMOL/L (3.5-5.1); SODIUM 146 MMOL/L (135-145); TOTAL CARBON DIOXIDE 26.1 MMOL/L (24-32); eGFR 87 ML/MIN
--- NOTE | 2021-01-25 07:42 | NUR ---
PAGER ID: [phone] MESSAGE: Jose Miguel 3.0 Paola Lenz [id number] -Tony Trevino RN PCU [id number]
[2021-01-25] MEDS ORDERED: potassium Cl 40MEQ/1/2NS 520ml 520 ML IV PRN (07:45)
[2021-01-25] MEDS ORDERED: magnesium 4gm in 100ml NS 100 ML IV PRN (07:45)
[2021-01-25] MEDS ORDERED: magnesium Cl slow-release 64mg tablet PO PRN (07:45)
[2021-01-25] MEDS ORDERED: potassium Cl 20 mEq SR tablet PO PRN (07:45)
[2021-01-25] MEDS: docusate sod 100mg capsule PO SCH ×2 (08:00→21:50)
[2021-01-25] MEDS: gabapentin 400mg capsule PO SCH ×2 (08:10→21:49)
[2021-01-25] MEDS: lamoTRIgine 100mg tablet PO SCH ×2 (08:11→21:50)
[2021-01-25] MEDS: levetiracetam 250mg tablet PO SCH ×2 (08:11→21:49)
[2021-01-25] MEDS: potassium Cl 20 mEq SR tablet PO PRN ×2 (08:11→15:09)
[2021-01-25 08:16] LABS: PLATELET ESTIMATE NORMAL
[2021-01-25 08:17] LABS: ANISOCYTOSIS 3+; ELLIPTOCYTES FEW; HYPOCHROMASIA 1+; POLYCHROMASIA 2+
--- NOTE | 2021-01-25 09:52 | NUR ---
Malnutrition consult: Pt unsure of wt loss though reports decreased appetite per malnutrition risk screen with RN. Current documented wt is +7 kg from most recent scaled wt hx in EMR (65 kg 05/17/2019), which is stable with additional scaled wt hx in EMR. Pt on a regular diet, pending documentation of PO intake. Pt with no documented decrease in muscle strength or edema. Pt currently lacks a minimum of two criteria for malnutrition. Will continue to follow and monitor qualifying criteria. Addendum: 01/25/21 at [address] Amended: Links added.
[2021-01-25] MEDS ORDERED: fentaNYL/PF 50MCG/1 ML 2ML syringe ONE (11:51)
[2021-01-25] MEDS ORDERED: LIDOcaine Viscous 15ml cup ONE (11:51)
[2021-01-25] MEDS ORDERED: MIDAZolam 1 MG/ML 5ML VIAL ONE ×2 (11:51)
[2021-01-25 19:58] LABS: HEMATOCRIT 28.9 % (35.0-45.0); HEMOGLOBIN 9.3 g/dl (12.0-16.0); MEAN CORPUSCULAR HGB CONC 32.1 g/dL (33.0-36.5); MEAN CORPUSCULAR VOLUME 90.2 FL (78-98); MEAN PLATELET VOLUME 9.6 FL (7.4-10.4); PLATELET COUNT 256 X10'3 (140-440); RED CELL DISTRIBUTION WIDTH 20.6 % (11.5-14.5); WHITE BLOOD COUNT 7.7 X10'3 (4.5-11.0)
[2021-01-25 20:24] LABS: ANISOCYTOSIS 3+; BURR CELLS FEW; PLATELET ESTIMATE NORMAL; POLYCHROMASIA FEW; TOTAL CELLS COUNTED 100
[2021-01-26 07:00] VITALS: BP 140/68
[2021-01-26] MEDS: potassium Cl 20mEq in NS 1,000 ML IV SCH (07:15)
[2021-01-26] MEDS: lamoTRIgine 100mg tablet PO SCH (07:42)
[2021-01-26] MEDS: levetiracetam 250mg tablet PO SCH (07:42)
[2021-01-26] MEDS: docusate sod 100mg capsule PO SCH (07:43)
[2021-01-26] MEDS: gabapentin 400mg capsule PO SCH (07:43)
[2021-01-26] MEDS ORDERED: pantoprazole 40mg Tablet.DR PO SCH (08:00)
[2021-01-26 08:10] LABS: BASOPHILS # (AUTO) 0.1 X10'3 (0-0.2); BASOPHILS % (AUTO) 1.9 % (0-1); EOSINOPHILS # (AUTO) 0.1 X10'3 (0-0.9); EOSINOPHILS % (AUTO) 2.2 % (0-6); HEMATOCRIT 28.2 % (35.0-45.0); HEMOGLOBIN 8.9 g/dl (12.0-16.0); LYMPHOCYTES # (AUTO) 1.8 X10'3 (1.1-4.8); LYMPHOCYTES % (AUTO) 28.5 % (21-51); MEAN CORPUSCULAR HEMOGLOBIN 28.7 PG (27.0-31.0); MEAN CORPUSCULAR HGB CONC 31.7 g/dL (33.0-36.5); MEAN CORPUSCULAR VOLUME 90.8 FL (78-98); MEAN PLATELET VOLUME 10.3 FL (7.4-10.4); MONOCYTES # (AUTO) 0.5 X10'3 (0-0.9); NEUTROPHILS # (AUTO) 3.8 X10'3 (1.8-7.7); NEUTROPHILS % (AUTO) 59.4 % (42-75); PLATELET COUNT 239 X10'3 (140-440); RED BLOOD COUNT 3.11 X10'6 (4.20-5.60); RED CELL DISTRIBUTION WIDTH 21.2 % (11.5-14.5); WHITE BLOOD COUNT 6.3 X10'3 (4.5-11.0)
[2021-01-26 08:42] LABS: ALBUMIN 2.1 G/DL (3.4-5.0); ANION GAP 11 (8-16); BLOOD UREA NITROGEN 13 MG/DL (7-18); CALCIUM 7.7 MG/DL (8.5-10.1); CHLORIDE 110 MMOL/L (99-107); CREATININE 0.65 MG/DL (0.40-0.90); GLUCOSE 91 MG/DL (70-104); POTASSIUM 4.4 MMOL/L (3.5-5.1); SODIUM 144 MMOL/L (135-145); TOTAL CARBON DIOXIDE 23.1 MMOL/L (24-32); eGFR > 90 ML/MIN
[2021-01-26 09:09] LABS: ANISOCYTOSIS 3+; PLATELET ESTIMATE NORMAL; POLYCHROMASIA FEW; TOTAL CELLS COUNTED 100
[2021-01-26] MEDS ORDERED: PANT40TA54 PO (09:57)
[2021-01-26 11:00] VITALS: BP 103/50
--- NOTE | 2021-01-26 16:00 | NUR ---
PATIENT PHONED AND APPRISED THAT HER HOUSE KEYS WERE FOUND, AND MAY BE PICKED UP AT HER CONVENIENCE AT [facility]. Addendum: 01/26/21 at 1639 by Ana Irwin RN Amended: Links added.
== END 2021-01-26 11:59 | disposition home or self-care (01) | DRG 369 ==
LOC: ER 12:02 → ED HOLD 15:15 → PCU 3S 19:30
PROVIDERS: ADMIT Internal Medicine; ATTEND Internal Medicine
PROC: 0DB48ZX Excision of Esophagogastric Junction, Via Natural or Artificial Opening Endoscopic, Diagnostic (ICD-10-PCS; principal; 2021-01-25)
PROC: 0DB68ZX Excision of Stomach, Via Natural or Artificial Opening Endoscopic, Diagnostic (ICD-10-PCS; 2021-01-25)
DX: K21.01 Gastro-esophageal reflux disease with esophagitis, with bleeding (principal); D62 Acute posthemorrhagic anemia; E87.6 Hypokalemia; F10.20 Alcohol dependence, uncomplicated; K29.70 Gastritis, unspecified, without bleeding; K29.80 Duodenitis without bleeding; K44.9 Diaphragmatic hernia without obstruction or gangrene; Z20.822 Contact with and (suspected) exposure to COVID-19; Z60.2 Problems related to living alone; F32.A Depression, unspecified; F41.9 Anxiety disorder, unspecified; G62.9 Polyneuropathy, unspecified; G89.29 Other chronic pain; Z90.710 Acquired absence of both cervix and uterus; Z87.11 Personal history of peptic ulcer disease; Z88.0 Allergy status to penicillin; Z88.2 Allergy status to sulfonamides; Z88.8 Allergy status to other drugs, medicaments and biological substances; Z56.0 Unemployment, unspecified; Z87.440 Personal history of urinary (tract) infections; Z79.899 Other long term (current) drug therapy
CPT/HCPCS: 36415; 43239; 80048; 80053; 80320; 81001; 82272; 83735; 83880; 84100; 85007; 85008; 85025; 85610; 85730; 86885; 86900; 86901; 87081; 87088; 87635; 88305; 93005; 99152; 99285; A4620; C9113; C9803; G0378; J2250; J2405; J3010; J3480; J7030; J7040

== ENCOUNTER → 2021-02-25 | Emergency (ER) | payer MEDICARE, MEDICAID ==
[~2021-02-25] VITALS: Ht 152.4 cm; Wt 56.8 kg
[~2021-02-25] MED LIST changes: -BUPR300T53 PO; -BUS15T PO; +CEFD300C3 PO; -FLUT9.9S16; +FOLI0.4T6 PO; +LACT1CAP26 PO; +LAMO100T PO; -LEVE10006 PO; +LEVE750T PO; +MAGN250T39 PO; +METR-159 PO; +MULT-1085 PO; +PANT40TA54 PO; +SERT-434 PO; +THIA50TA10 PO; +TRAZ-256 PO; +morphine 4 MG/ML inj SYRINge IV ONE; +ondansetron/PF 4mg/2ml inj IV ONE; +potassium Cl 20 mEq SR tablet PO STA; +ringers solution, lacted 1,000 ML IV ONE
--- NOTE | 2021-02-25 00:18 | NUR ---
PT IS ROOMED. SEIZURE PRECAUTIONS IN PLACE. BED LOW TO GROUND AND LOCKED IN POSITION. SIDE RAILS UP WITH PADDDING IN PLACE.
--- NOTE | 2021-02-25 00:19 | NUR ---
TECH PERFORMING EKG AT BEDSIDE.
[2021-02-25 02:48] LABS: BASOPHILS # (AUTO) 0.2 X10'3 (0-0.2); EOSINOPHILS # (AUTO) 0.2 X10'3 (0-0.9); LYMPHOCYTES # (AUTO) 1.9 X10'3 (1.1-4.8); NEUTROPHILS # (AUTO) 2.4 X10'3 (1.8-7.7); WHITE BLOOD COUNT 5.3 X10'3 (4.5-11.0)
[2021-02-25 02:50] LABS: HEMATOCRIT 30.7 % (35.0-45.0); HEMOGLOBIN 9.6 g/dl (12.0-16.0); LYMPHOCYTES % (AUTO) 35.7 % (21-51); MEAN CORPUSCULAR HEMOGLOBIN 25.7 PG (27.0-31.0); MEAN CORPUSCULAR HGB CONC 31.4 g/dL (33.0-36.5); MEAN CORPUSCULAR VOLUME 81.9 FL (78-98); MEAN PLATELET VOLUME 8.8 FL (7.4-10.4); MONOCYTES # (AUTO) 0.7 X10'3 (0-0.9); MONOCYTES % (AUTO) 12.3 % (2-12); PLATELET COUNT 273 X10'3 (140-440); RED BLOOD COUNT 3.75 X10'6 (4.20-5.60); RED CELL DISTRIBUTION WIDTH 21.3 % (11.5-14.5)
[2021-02-25 03:03] LABS: ALANINE AMINOTRANSFERASE 25 U/L (12-78); ALBUMIN 2.4 G/DL (3.4-5.0); ALBUMIN/GLOBULIN RATIO 0.8 (1.1-1.5); ALKALINE PHOSPHATASE 125 IU/L (46-116); ANION GAP 11 (8-16); ASPARTATE AMINO TRANSFERASE 38 U/L (10-37); BILIRUBIN,DIRECT 0.1 MG/DL (0-0.3); BILIRUBIN,TOTAL 0.3 MG/DL (0.1-1.0); BLOOD UREA NITROGEN 12 MG/DL (7-18); BUN/CREATININE RATIO 20.7 (6.6-38.0); CHLORIDE 111 MMOL/L (99-107); CREATININE 0.58 MG/DL (0.40-0.90); ETHANOL 0.269 GM/DL (0.0-0.010); GLUCOSE 100 MG/DL (70-104); LIPASE 567 U/L (73-393); SODIUM 151 MMOL/L (135-145); TOTAL PROTEIN 5.5 G/DL (6.4-8.2); eGFR > 90 ML/MIN
--- NOTE | 2021-02-25 03:46 | NUR ---
PT AMBULATED TO THE RESTROOM AND FELT DIZZY ON HER WAY BACK TO HER BED. SHE GOT DOWN ON HER KNEES AND WAS HELPED ONTO A WHEELCHAIR BY STAFF. AT BEDSIDE. PT WILL BE GIVEN FLUIDS AND POTASSIUM REPLACEMENT.
[2021-02-25 03:58] LABS: ANISOCYTOSIS 3+; PLATELET ESTIMATE NORMAL; TOTAL CELLS COUNTED 100
[2021-02-25 03:59] LABS: POLYCHROMASIA FEW
--- NOTE | 2021-02-25 04:35 | NUR ---
MD AT BEDSIDE ASSESSING PT PT CONTINUES TO COMPLAIN OF DIZZINESS DESCRIBED LIGHTHEADEDNESS AND NAUSEA. PT WILL BE GIVEN ONE MORE LITER OF FLUIDS AND RE-EVALUATED.
[2021-02-25 06:13] VITALS: BP 168/107
== END | disposition home or self-care (01) ==
LOC: ER 00:09
DX: E87.0 Hyperosmolality and hypernatremia (principal); R10.84 Generalized abdominal pain; R11.0 Nausea; E87.6 Hypokalemia; G89.29 Other chronic pain; G90.09 Other idiopathic peripheral autonomic neuropathy; Z90.710 Acquired absence of both cervix and uterus; Z56.0 Unemployment, unspecified; Z72.89 Other problems related to lifestyle; Z88.0 Allergy status to penicillin; Z88.2 Allergy status to sulfonamides; Z88.8 Allergy status to other drugs, medicaments and biological substances; Z79.899 Other long term (current) drug therapy
CPT/HCPCS: 36415; 70450; 71045; 74176; 80048; 80076; 80320; 82140; 83690; 85007; 85025; 93005; 96361; 96374; 96375; 96376; 99285; J2270; J2405; J7120

== ENCOUNTER 2021-04-09 02:25 | Emergency (ER) | payer MEDICARE, MEDICAID ==
[~2021-04-09] VITALS: Ht 162.6 cm; Wt 63.6 kg
[~2021-04-09 02:25] MED LIST changes: -CEFD300C3 PO; -MELO-102 PO; -TRAZ-256 PO; -morphine 4 MG/ML inj SYRINge IV ONE; -ondansetron/PF 4mg/2ml inj IV ONE; -potassium Cl 20 mEq SR tablet PO STA; -ringers solution, lacted 1,000 ML IV ONE
[2021-04-09 03:09] LABS: BASOPHILS # (AUTO) 0.1 X10'3 (0-0.2); BASOPHILS % (AUTO) 1.2 % (0-1); EOSINOPHILS # (AUTO) 0.1 X10'3 (0-0.9); HEMATOCRIT 28.6 % (35.0-45.0); HEMOGLOBIN 8.9 g/dl (12.0-16.0); LYMPHOCYTES # (AUTO) 1.5 X10'3 (1.1-4.8); MEAN CORPUSCULAR HEMOGLOBIN 23.3 PG (27.0-31.0); MEAN CORPUSCULAR HGB CONC 31.2 g/dL (33.0-36.5); MEAN CORPUSCULAR VOLUME 74.8 FL (78-98); MEAN PLATELET VOLUME 9.1 FL (7.4-10.4); MONOCYTES # (AUTO) 0.6 X10'3 (0-0.9); MONOCYTES % (AUTO) 6.5 % (2-12); NEUTROPHILS # (AUTO) 6.7 X10'3 (1.8-7.7); NEUTROPHILS % (AUTO) 74.3 % (42-75); PLATELET COUNT 342 X10'3 (140-440); RED BLOOD COUNT 3.83 X10'6 (4.20-5.60); RED CELL DISTRIBUTION WIDTH 24.7 % (11.5-14.5)
[2021-04-09 03:21] LABS: ALANINE AMINOTRANSFERASE 26 U/L (12-78); ALBUMIN 2.5 G/DL (3.4-5.0); ALBUMIN/GLOBULIN RATIO 0.7 (1.1-1.5); ALKALINE PHOSPHATASE 120 IU/L (46-116); ANION GAP 13 (8-16); ASPARTATE AMINO TRANSFERASE 21 U/L (10-37); BILIRUBIN,TOTAL 0.3 MG/DL (0.1-1.0); BLOOD UREA NITROGEN 13 MG/DL (7-18); CALCIUM 8.5 MG/DL (8.5-10.1); CHLORIDE 101 MMOL/L (99-107); CREATININE 0.65 MG/DL (0.40-0.90); GLUCOSE 100 MG/DL (70-104); LIPASE 182 U/L (73-393); SODIUM 141 MMOL/L (135-145); TOTAL CARBON DIOXIDE 27.2 MMOL/L (24-32); eGFR > 90 ML/MIN
[2021-04-09 03:31] LABS: POTASSIUM 2.9 MMOL/L (3.5-5.1)
[2021-04-09] MEDS ORDERED: normal saline 1000ml 1,000 ML IV ONE (03:40)
[2021-04-09] MEDS ORDERED: morphine 4 MG/ML inj SYRINge IV ONE (03:40)
[2021-04-09] MEDS ORDERED: ondansetron/PF 4mg/2ml inj IV ONE (03:40)
[2021-04-09] MEDS ORDERED: iohexol 300mg/ml 100ml inj. ONE (03:40)
--- NOTE | 2021-04-09 04:02 | NUR ---
pt to ct
[2021-04-09 04:09] LABS: PLATELET ESTIMATE NORMAL
[2021-04-09 04:10] LABS: ANISOCYTOSIS 3+; MICROCYTOSIS 1+; POLYCHROMASIA FEW
[2021-04-09] MEDS ORDERED: potassium Cl 20 mEq SR tablet PO STA (05:21)
[2021-04-09 06:34] VITALS: BP 165/90
== END 2021-04-09 06:35 | disposition home or self-care (01) ==
LOC: ER 02:25
DX: R10.13 Epigastric pain (principal); E87.6 Hypokalemia; R11.2 Nausea with vomiting, unspecified; F41.9 Anxiety disorder, unspecified; F32.9 Major depressive disorder, single episode, unspecified; G89.29 Other chronic pain; Z86.69 Personal history of other diseases of the nervous system and sense organs; Z87.11 Personal history of peptic ulcer disease; Z87.440 Personal history of urinary (tract) infections; Z90.710 Acquired absence of both cervix and uterus; Z98.890 Other specified postprocedural states; Z72.89 Other problems related to lifestyle; Z60.2 Problems related to living alone; Z56.0 Unemployment, unspecified; Z88.0 Allergy status to penicillin; Z88.2 Allergy status to sulfonamides; Z88.8 Allergy status to other drugs, medicaments and biological substances; Z79.2 Long term (current) use of antibiotics; Z79.899 Other long term (current) drug therapy
CPT/HCPCS: 36415; 71045; 74177; 80053; 83690; 85008; 85025; 96361; 96374; 96375; 99285; J2270; J2405; J7030; Q9967; 93005

== ENCOUNTER 2021-06-23 17:01 | Inpatient (IN) | payer MEDICARE, MEDICAID ==
[~2021-06-23] VITALS: Ht 160 cm; Wt 63.6 kg
[2021-06-23] MEDS: dextrose 5%-1/2 normal saline 1,000 ML IV SCH (01:00)
[~2021-06-23 17:01] MED LIST changes: +CIPR-259 PO; -FOLI0.4T6 PO; +FOLI1TAB27 PO; -LACT1CAP26 PO; -MAGN250T39 PO; -METR-159 PO; -MULT-1085 PO; +NALT50TA PO; -THIA50TA10 PO; +thiamine tablet PO
--- NOTE | 2021-06-23 17:45 | NUR ---
dr. sanchez at bedside.
--- NOTE | 2021-06-23 18:00 | NUR ---
pt up to bsc with standby assistance, moderate assistance to help pt up off bsc. returned to bed without incident, urine sample sent to lab.
--- NOTE | 2021-06-23 18:35 | NUR ---
bedside report to JOSLYN Meyers
[2021-06-23 18:37] LABS: CLARITY,URINE SLIGHTLY CLOUDY (Clear); COLOR,URINE YELLOW (Yellow); GLUCOSE, URINE NEGATIVE (Neg); KETONES,URINE 40 mg/dl (Neg); LEUKOCYTE ESTERASE ,URINE LARGE (Neg); NITRITES, URINE POSITIVE (Neg); OCCULT BLOOD,URINE NEGATIVE (Neg); PROTEIN,URINE NEGATIVE (Neg); UROBILINOGEN,URINE 0.2 E.U/dL (0.2-1.0)
[2021-06-23 18:42] LABS: MEAN CORPUSCULAR HEMOGLOBIN 23.6 PG (27.0-31.0)
[2021-06-23 18:44] LABS: BASOPHILS # (AUTO) 0.1 X10'3 (0-0.2); BASOPHILS % (AUTO) 2.1 % (0-1); EOSINOPHILS # (AUTO) 0.1 X10'3 (0-0.9); EOSINOPHILS % (AUTO) 1.4 % (0-6); HEMATOCRIT 26.8 % (35.0-45.0); LYMPHOCYTES # (AUTO) 1.5 X10'3 (1.1-4.8); LYMPHOCYTES % (AUTO) 24.1 % (21-51); MEAN CORPUSCULAR HGB CONC 29.9 g/dL (33.0-36.5); MEAN CORPUSCULAR VOLUME 79.1 FL (78-98); MEAN PLATELET VOLUME 8.9 FL (7.4-10.4); MONOCYTES % (AUTO) 16.6 % (2-12); NEUTROPHILS # (AUTO) 3.4 X10'3 (1.8-7.7); NEUTROPHILS % (AUTO) 55.8 % (42-75); PLATELET COUNT 286 X10'3 (140-440); RED BLOOD COUNT 3.39 X10'6 (4.20-5.60); RED CELL DISTRIBUTION WIDTH 27.6 % (11.5-14.5); WHITE BLOOD COUNT 6.1 X10'3 (4.5-11.0)
[2021-06-23 18:45] LABS: UA COLLECTION TYPE CLN CATCH MIDSTREAM
[2021-06-23 18:45] LABS: ALANINE AMINOTRANSFERASE 82 U/L (12-78); ALBUMIN 2.3 G/DL (3.4-5.0); ALBUMIN/GLOBULIN RATIO 0.8 (1.1-1.5); ALKALINE PHOSPHATASE 171 IU/L (46-116); ANION GAP 11 (8-16); ASPARTATE AMINO TRANSFERASE 77 U/L (10-37); BILIRUBIN,TOTAL 1.1 MG/DL (0.1-1.0); BLOOD UREA NITROGEN 3 MG/DL (7-18); BUN/CREATININE RATIO 5.4 (6.6-38.0); CHLORIDE 101 MMOL/L (99-107); CREATININE 0.56 MG/DL (0.40-0.90); GLUCOSE 83 MG/DL (70-104); POTASSIUM 3.9 MMOL/L (3.5-5.1); SODIUM 136 MMOL/L (135-145); TOTAL CARBON DIOXIDE 24.4 MMOL/L (24-32); TOTAL PROTEIN 5.3 G/DL (6.4-8.2); eGFR > 90 ML/MIN
[2021-06-23 18:46] LABS: RBC,URINE 0-2 /HPF (0-2); WBC,URINE 20-30 /HPF (0-4)
[2021-06-23 18:47] LABS: BACTERIA,URINE 1+ /HPF (Neg); SQUAMOUS EPITHELIAL CELL,UR FEW /LPF (FEW); URINE AMPHETAMINE SCREEN NEGATIVE (Neg); URINE BARBITUATE SCREEN NEGATIVE (Neg); URINE BENZODIAZEPINES SCREEN NEGATIVE (Neg); URINE CANNABINOID SCREEN NEGATIVE (Neg); URINE COCAINE SCREEN NEGATIVE (Neg); URINE METHADONE SCREEN NEGATIVE (Neg); URINE OPIATE SCREEN NEGATIVE (Neg); URINE PHENCYCLIDINE SCREEN NEGATIVE (Neg); WBC CLUMPS,URINE FEW /HPF (NEGATIVE)
[2021-06-23 18:54] LABS: ETHANOL < 0.010 GM/DL (0.0-0.010)
[2021-06-23 19:00] LABS: PHOSPHORUS 0.9 MG/DL (2.3-4.5)
[2021-06-23] MEDS ORDERED: CefTRIAXone/D5W-Rocephin 1gm 50 ML IV ONE (19:00)
[2021-06-23] MEDS ORDERED: magnesium 2GM in 50ml NS 50 ML IV ONE (19:05)
[2021-06-23] MEDS ORDERED: potassium phosphate inj 15 MMOL in normal saline 250ml IV soln 250 ML IV ONE (19:05)
[2021-06-23] MEDS ORDERED: temazepam 15mg capsule PO PRN (21:00)
[2021-06-23] MEDS ORDERED: haloperidol lactate 5mg/ml inj IM PRN (22:30)
[2021-06-23] MEDS ORDERED: ondansetron 4mg rapidly disintigrating tab PO PRN (22:30)
[2021-06-23] MEDS ORDERED: acetaminophen 325mg tablet PO PRN ×2 (22:30)
[2021-06-23] MEDS ORDERED: magnesium Cl slow-release 64mg tablet PO PRN (22:30)
[2021-06-23] MEDS ORDERED: magnesium 4gm in 100ml NS 100 ML IV PRN (22:30)
[2021-06-23] MEDS ORDERED: magnesium hydroxide 30ml (MOM) UD suspension PO PRN (22:30)
[2021-06-23] MEDS ORDERED: dextrose 50%-water 50ml dispensing syringe IV PRN (22:30)
[2021-06-23] MEDS ORDERED: bisacodyl 10mg suppository rectal RC PRN (22:30)
[2021-06-23] MEDS ORDERED: mag hydrox/Alum hydrox/simeth 30ml oral suspension PO PRN (22:30)
[2021-06-23] MEDS ORDERED: magnesium 2GM in 50ml NS 50 ML IV PRN (22:30)
[2021-06-23] MEDS ORDERED: potassium CL 10mEq/100ml bag 100 ML IV PRN (22:30)
[2021-06-23] MEDS ORDERED: haloperidol 5mg tablet PO PRN (22:30)
[2021-06-23] MEDS ORDERED: potassium Cl 20 mEq SR tablet PO PRN (22:30)
[2021-06-23] MEDS ORDERED: HYDROcodone/acetaminophen 5mg/325mg tablet PO PRN (22:30)
[2021-06-23] MEDS ORDERED: diphenhydrAMINE 50 mg/ml inj IV PRN (22:30)
[2021-06-23] MEDS ORDERED: diphenhydrAMINE 25mg capsule PO PRN (22:30)
[2021-06-23] MEDS ORDERED: morphine 2 MG/ML inj. syringe IV PRN ×2 (22:30)
[2021-06-23] MEDS ORDERED: sodium phosphate inj. 15 MMOL in dextrose 5%-water 250 ML IV PRN (22:40)
[2021-06-23] MEDS ORDERED: Neutra Phos packet PO PRN (22:40)
[2021-06-23] MEDS ORDERED: sodium phosphate inj. 30 MMOL in dextrose 5%-water 250 ML IV PRN (22:40)
[2021-06-23 22:59] LABS: APTT 25 SECONDS (22-32)
[2021-06-23 23:10] LABS: LIPASE 131 U/L (73-393)
[2021-06-23 23:30] VITALS: BP 153/100
--- NOTE | 2021-06-23 23:30 | NUR ---
Fall precaution initiated, call light, bedside table placed within reach. Pt instructed to call for assistance as needed. Pt denied any discomfort IV medication infusing well.
[2021-06-24] VITALS (7 sets, daily range): BP systolic 121–170; BP diastolic 71–108
--- NOTE | 2021-06-24 02:15 | NUR ---
Dr Jacobs notified of BP 170/108, order given
[2021-06-24] MEDS ORDERED: hydrALAZINE 20mg/ml inj. IV PRN (02:25)
--- NOTE | 2021-06-24 03:48 | NUR ---
Pt requested to be vaccinated for the flu upon discharge.
[2021-06-24 06:46] LABS: BASOPHILS # (AUTO) 0.1 X10'3 (0-0.2); BASOPHILS % (AUTO) 1.2 % (0-1); EOSINOPHILS # (AUTO) 0.1 X10'3 (0-0.9); EOSINOPHILS % (AUTO) 1.9 % (0-6); HEMATOCRIT 29.2 % (35.0-45.0); HEMOGLOBIN 8.7 g/dl (12.0-16.0); LYMPHOCYTES # (AUTO) 1.7 X10'3 (1.1-4.8); LYMPHOCYTES % (AUTO) 23.6 % (21-51); MEAN CORPUSCULAR HEMOGLOBIN 23.5 PG (27.0-31.0); MEAN CORPUSCULAR HGB CONC 29.9 g/dL (33.0-36.5); MEAN CORPUSCULAR VOLUME 78.6 FL (78-98); MEAN PLATELET VOLUME 9.4 FL (7.4-10.4); MONOCYTES # (AUTO) 1.3 X10'3 (0-0.9); MONOCYTES % (AUTO) 18.8 % (2-12); NEUTROPHILS # (AUTO) 3.9 X10'3 (1.8-7.7); NEUTROPHILS % (AUTO) 54.5 % (42-75); PLATELET COUNT 317 X10'3 (140-440); RED BLOOD COUNT 3.72 X10'6 (4.20-5.60); RED CELL DISTRIBUTION WIDTH 28.6 % (11.5-14.5); WHITE BLOOD COUNT 7.2 X10'3 (4.5-11.0)
[2021-06-24 07:01] LABS: ALANINE AMINOTRANSFERASE 79 U/L (12-78); ALBUMIN 2.3 G/DL (3.4-5.0); ALBUMIN/GLOBULIN RATIO 0.8 (1.1-1.5); ALKALINE PHOSPHATASE 173 IU/L (46-116); ANION GAP 13 (8-16); ASPARTATE AMINO TRANSFERASE 68 U/L (10-37); BLOOD UREA NITROGEN 2 MG/DL (7-18); BUN/CREATININE RATIO 4.1 (6.6-38.0); CALCIUM 7.7 MG/DL (8.5-10.1); CHLORIDE 102 MMOL/L (99-107); CREATININE 0.49 MG/DL (0.40-0.90); GLUCOSE 87 MG/DL (70-104); MAGNESIUM 1.5 MG/DL (1.5-2.4); PHOSPHORUS 1.9 MG/DL (2.3-4.5); POTASSIUM 3.5 MMOL/L (3.5-5.1); SODIUM 138 MMOL/L (135-145); TOTAL CARBON DIOXIDE 23.2 MMOL/L (24-32); TOTAL PROTEIN 5.3 G/DL (6.4-8.2); eGFR > 90 ML/MIN
[2021-06-24] MEDS ORDERED: Neutra Phos packet PO PRN (07:20)
[2021-06-24] MEDS ORDERED: sodium phosphate inj. 30 MMOL in dextrose 5%-water 250 ML IV PRN (07:20)
[2021-06-24] MEDS ORDERED: sodium phosphate inj. 15 MMOL in dextrose 5%-water 250 ML IV PRN (07:20)
[2021-06-24] MEDS: multivitamins, therapeutics tablet PO SCH (07:56)
[2021-06-24] MEDS: heparin, porcine 5000 units/ml vial SQ SCH ×2 (07:56→19:32)
[2021-06-24] MEDS: thiamine 100mg/ml 2ml inj. IV SCH ×3 (07:56→19:52)
[2021-06-24] MEDS: docusate sod 100mg capsule PO SCH ×2 (08:00→19:32)
[2021-06-24] MEDS: K and/or MAG REPLACEMENT MC SCH ×2 (08:00→20:00)
[2021-06-24 08:08] LABS: TOTAL CELLS COUNTED 100
[2021-06-24 08:09] LABS: ANISOCYTOSIS 3+; MICROCYTOSIS 1+; PLATELET ESTIMATE NORMAL; SMUDGE CELLS 1+
[2021-06-24 08:10] LABS: HYPOCHROMASIA 1+; POLYCHROMASIA 1+
[2021-06-24 08:11] LABS: LARGE PLATELETS FEW; TARGET CELLS FEW
[2021-06-24] MEDS ORDERED: FLU VACC QS2021-22(6MOS UP)/PF 60 MCG/0.5 ML SYRINGE IM ONE (09:00)
[2021-06-24] MEDS: CefTRIAXone inj 1,000 MG in normal saline 100ml IV soln 100 ML IV SCH (09:00)
[2021-06-24] MEDS: pantoprazole 40MG/NS 100ML BAG 100 ML IV SCH (09:00)
[2021-06-24] MEDS: folic acid 1mg/0.2ml inj IV SCH (09:01)
[2021-06-24] MEDS: sertraline 50mg tablet PO SCH (10:14)
[2021-06-24] MEDS: levetiracetam 250mg tablet PO SCH ×2 (10:14→19:32)
[2021-06-24] MEDS: lamoTRIgine 100mg tablet PO SCH ×2 (10:14→19:32)
[2021-06-24] MEDS: ondansetron/PF 4mg/2ml inj IV PRN ×2 (10:41→19:52)
--- NOTE | 2021-06-24 11:24 | NUR ---
Charting by Mike STILES reviewed by Sanjeev Reagan RN
--- NOTE | 2021-06-24 11:27 | NUR ---
PTS BOWEL WAS NOT SEEN 06/24. WHEN PT WAS ASKED PT STATED LAST THURSDAY.
[2021-06-24] MEDS: LORazepam 2 mg/ml vial IV PRN ×2 (13:58→19:31)
[2021-06-24] MEDS: dextrose 5%-1/2 normal saline 1,000 ML IV SCH ×2 (16:20→18:30)
--- NOTE | 2021-06-24 16:26 | NUR ---
complete linen change
--- NOTE | 2021-06-24 16:30 | NUR ---
Charting by Nyla STILES reviewed by Sanjeev Reagan RN
[2021-06-24] MEDS ORDERED: sodium phosphate inj. 30 MMOL in dextrose 5%-water 250 ML IV ONE (18:30)
--- NOTE | 2021-06-24 18:39 | NUR ---
Problems reprioritized. Patient report given, questions answered & plan of care reviewed with Marci JORGENSEN.
[2021-06-25] MEDS: dextrose 5%-1/2 normal saline 1,000 ML IV SCH ×2 (01:58→15:38)
[2021-06-25 02:00] VITALS: BP 115/69
[2021-06-25 06:00] VITALS: BP 128/63
[2021-06-25 07:08] LABS: HEMOGLOBIN 7.2 g/dl (12.0-16.0); NEUTROPHILS # (AUTO) 2.2 X10'3 (1.8-7.7)
[2021-06-25 07:10] LABS: BASOPHILS # (AUTO) 0.1 X10'3 (0-0.2); BASOPHILS % (AUTO) 2.3 % (0-1); EOSINOPHILS # (AUTO) 0.3 X10'3 (0-0.9); EOSINOPHILS % (AUTO) 5.5 % (0-6); HEMATOCRIT 24.3 % (35.0-45.0); LYMPHOCYTES # (AUTO) 1.4 X10'3 (1.1-4.8); MEAN CORPUSCULAR HEMOGLOBIN 23.2 PG (27.0-31.0); MEAN CORPUSCULAR HGB CONC 29.7 g/dL (33.0-36.5); MEAN CORPUSCULAR VOLUME 78.2 FL (78-98); MEAN PLATELET VOLUME 8.5 FL (7.4-10.4); MONOCYTES # (AUTO) 0.9 X10'3 (0-0.9); MONOCYTES % (AUTO) 18.4 % (2-12); NEUTROPHILS % (AUTO) 45.8 % (42-75); PLATELET COUNT 333 X10'3 (140-440); RED BLOOD COUNT 3.11 X10'6 (4.20-5.60); RED CELL DISTRIBUTION WIDTH 27.8 % (11.5-14.5); WHITE BLOOD COUNT 4.8 X10'3 (4.5-11.0)
[2021-06-25 07:35] LABS: ALANINE AMINOTRANSFERASE 59 U/L (12-78); ALBUMIN 1.8 G/DL (3.4-5.0); ALBUMIN/GLOBULIN RATIO 0.7 (1.1-1.5); ALKALINE PHOSPHATASE 127 IU/L (46-116); ANION GAP 6 (8-16); ASPARTATE AMINO TRANSFERASE 46 U/L (10-37); BILIRUBIN,TOTAL 0.7 MG/DL (0.1-1.0); BLOOD UREA NITROGEN 2 MG/DL (7-18); BUN/CREATININE RATIO 4.9 (6.6-38.0); CALCIUM 6.7 MG/DL (8.5-10.1); CHLORIDE 106 MMOL/L (99-107); CREATININE 0.41 MG/DL (0.40-0.90); GLUCOSE 101 MG/DL (70-104); POTASSIUM 3.1 MMOL/L (3.5-5.1); SODIUM 141 MMOL/L (135-145); TOTAL CARBON DIOXIDE 29.3 MMOL/L (24-32); TOTAL PROTEIN 4.4 G/DL (6.4-8.2); eGFR > 90 ML/MIN
[2021-06-25 07:41] LABS: MAGNESIUM 1.5 MG/DL (1.5-2.4); PHOSPHORUS 5.1 MG/DL (2.3-4.5)
[2021-06-25] MEDS: K and/or MAG REPLACEMENT MC SCH ×2 (08:00→20:00)
[2021-06-25] MEDS ORDERED: pantoprazole 40mg Tablet.DR PO SCH (08:00)
[2021-06-25] MEDS: potassium Cl 20 mEq SR tablet PO PRN ×3 (08:13→17:02)
[2021-06-25] MEDS: heparin, porcine 5000 units/ml vial SQ SCH ×2 (08:14→21:00)
[2021-06-25] MEDS: docusate sod 100mg capsule PO SCH ×2 (08:14→20:59)
[2021-06-25] MEDS: multivitamins, therapeutics tablet PO SCH (08:14)
[2021-06-25] MEDS: lamoTRIgine 100mg tablet PO SCH ×2 (08:14→20:59)
[2021-06-25] MEDS: sertraline 50mg tablet PO SCH (08:14)
[2021-06-25] MEDS: thiamine 100mg/ml 2ml inj. IV SCH ×3 (08:14→20:59)
[2021-06-25] MEDS: levetiracetam 250mg tablet PO SCH ×2 (08:15→20:59)
[2021-06-25] MEDS: CefTRIAXone inj 1,000 MG in normal saline 100ml IV soln 100 ML IV SCH (08:15)
[2021-06-25] MEDS: folic acid 1mg/0.2ml inj IV SCH (08:15)
[2021-06-25] MEDS: pantoprazole 40MG/NS 100ML BAG 100 ML IV SCH (08:15)
[2021-06-25 11:00] VITALS: BP 133/88
[2021-06-25 15:00] VITALS: BP 135/68
[2021-06-25] MEDS: ondansetron/PF 4mg/2ml inj IV PRN (17:18)
--- NOTE | 2021-06-25 18:43 | NUR ---
Problems reprioritized. Patient report given, questions answered & plan of care reviewed with Jessica JORGENSEN.
--- NOTE | 2021-06-25 18:45 | NUR ---
Patient in room PCU [id number]. I have received report from JOSLYN Alexander and had the opportunity to ask questions and assume patient care.
[2021-06-25 19:00] VITALS: BP 119/50
[2021-06-25] MEDS ORDERED: LORazepam 2 mg/ml vial IV PRN (22:30)
[2021-06-25] MEDS ORDERED: LORazepam 1 MG tablet PO PRN (22:30)
[2021-06-25 23:00] VITALS: BP 120/63
[2021-06-26] MEDS: dextrose 5%-1/2 normal saline 1,000 ML IV SCH ×3 (00:49→20:26)
[2021-06-26 03:00] VITALS: BP 135/83
[2021-06-26 06:00] VITALS: BP 168/104
[2021-06-26 06:06] LABS: EOSINOPHILS # (AUTO) 0.2 X10'3 (0-0.9); MEAN CORPUSCULAR HEMOGLOBIN 23.3 PG (27.0-31.0); MEAN CORPUSCULAR VOLUME 78.6 FL (78-98); NEUTROPHILS # (AUTO) 2.6 X10'3 (1.8-7.7); WHITE BLOOD COUNT 5.5 X10'3 (4.5-11.0)
[2021-06-26 06:08] LABS: BASOPHILS # (AUTO) 0.2 X10'3 (0-0.2); BASOPHILS % (AUTO) 3.4 % (0-1); EOSINOPHILS % (AUTO) 3.9 % (0-6); LYMPHOCYTES # (AUTO) 1.6 X10'3 (1.1-4.8); LYMPHOCYTES % (AUTO) 28.7 % (21-51); MEAN CORPUSCULAR HGB CONC 29.6 g/dL (33.0-36.5); MEAN PLATELET VOLUME 9.2 FL (7.4-10.4); MONOCYTES % (AUTO) 17.3 % (2-12); NEUTROPHILS % (AUTO) 46.7 % (42-75); PLATELET COUNT 292 X10'3 (140-440); RED BLOOD COUNT 3.46 X10'6 (4.20-5.60); RED CELL DISTRIBUTION WIDTH 28.2 % (11.5-14.5)
[2021-06-26 06:14] LABS: ALANINE AMINOTRANSFERASE 60 U/L (12-78); ALBUMIN/GLOBULIN RATIO 0.7 (1.1-1.5); ALKALINE PHOSPHATASE 147 IU/L (46-116); ANION GAP 11 (8-16); ASPARTATE AMINO TRANSFERASE 50 U/L (10-37); BILIRUBIN,TOTAL 0.7 MG/DL (0.1-1.0); BLOOD UREA NITROGEN 2 MG/DL (7-18); BUN/CREATININE RATIO 4.3 (6.6-38.0); CALCIUM 7.5 MG/DL (8.5-10.1); CHLORIDE 108 MMOL/L (99-107); CREATININE 0.47 MG/DL (0.40-0.90); GLUCOSE 82 MG/DL (70-104); PHOSPHORUS 3.7 MG/DL (2.3-4.5); POTASSIUM 4.1 MMOL/L (3.5-5.1); SODIUM 142 MMOL/L (135-145); TOTAL CARBON DIOXIDE 23.3 MMOL/L (24-32); TOTAL PROTEIN 4.9 G/DL (6.4-8.2); eGFR > 90 ML/MIN
[2021-06-26 06:25] LABS: MAGNESIUM 1.6 MG/DL (1.5-2.4)
--- NOTE | 2021-06-26 06:32 | NUR ---
Problems reprioritized. Patient report given, questions answered & plan of care reviewed with JOSLYN Alexander.
[2021-06-26] MEDS: K and/or MAG REPLACEMENT MC SCH ×2 (08:00→20:00)
[2021-06-26] MEDS: multivitamins, therapeutics tablet PO SCH (08:00)
[2021-06-26] MEDS: pantoprazole 40MG/NS 100ML BAG 100 ML IV SCH (09:02)
[2021-06-26] MEDS: CefTRIAXone inj 1,000 MG in normal saline 100ml IV soln 100 ML IV SCH (09:02)
[2021-06-26] MEDS: thiamine 100mg/ml 2ml inj. IV SCH ×3 (09:02→20:24)
[2021-06-26] MEDS: docusate sod 100mg capsule PO SCH ×2 (09:03→20:25)
[2021-06-26] MEDS: sertraline 50mg tablet PO SCH (09:03)
[2021-06-26] MEDS: heparin, porcine 5000 units/ml vial SQ SCH ×2 (09:03→20:25)
[2021-06-26] MEDS: lamoTRIgine 100mg tablet PO SCH ×2 (09:04→20:23)
[2021-06-26] MEDS: levetiracetam 250mg tablet PO SCH ×2 (09:04→20:23)
[2021-06-26] MEDS: folic acid 1mg/0.2ml inj IV SCH (09:04)
[2021-06-26 11:00] VITALS: BP 133/73
[2021-06-26] MEDS: ondansetron/PF 4mg/2ml inj IV PRN ×2 (13:00→20:24)
[2021-06-26 15:00] VITALS: BP 156/99
[2021-06-26 18:00] VITALS: BP 118/55
--- NOTE | 2021-06-26 18:37 | NUR ---
Problems reprioritized. Patient report given, questions answered & plan of care reviewed with CHRISSIE RN.
[2021-06-26 22:00] VITALS: BP 137/64
[2021-06-27 02:00] VITALS: BP 141/75
[2021-06-27 06:00] VITALS: BP 143/70
[2021-06-27] MEDS: dextrose 5%-1/2 normal saline 1,000 ML IV SCH (06:07)
[2021-06-27 06:08] LABS: BASOPHILS # (AUTO) 0.2 X10'3 (0-0.2); EOSINOPHILS # (AUTO) 0.2 X10'3 (0-0.9); LYMPHOCYTES # (AUTO) 1.3 X10'3 (1.1-4.8); MEAN CORPUSCULAR HEMOGLOBIN 23.3 PG (27.0-31.0); MONOCYTES # (AUTO) 0.9 X10'3 (0-0.9); RED CELL DISTRIBUTION WIDTH 27.6 % (11.5-14.5)
[2021-06-27 06:13] LABS: BASOPHILS % (AUTO) 3.8 % (0-1); EOSINOPHILS % (AUTO) 3.2 % (0-6); HEMATOCRIT 23.4 % (35.0-45.0); LYMPHOCYTES % (AUTO) 25.3 % (21-51); MEAN CORPUSCULAR HGB CONC 30.1 g/dL (33.0-36.5); MEAN CORPUSCULAR VOLUME 77.3 FL (78-98); MEAN PLATELET VOLUME 8.8 FL (7.4-10.4); MONOCYTES % (AUTO) 16.8 % (2-12); NEUTROPHILS # (AUTO) 2.7 X10'3 (1.8-7.7); NEUTROPHILS % (AUTO) 50.9 % (42-75); PLATELET COUNT 397 X10'3 (140-440); RED BLOOD COUNT 3.03 X10'6 (4.20-5.60); WHITE BLOOD COUNT 5.3 X10'3 (4.5-11.0)
--- NOTE | 2021-06-27 06:43 | NUR ---
critical lab result received for hgb 7.0, Dr. Durant made aware no new order received at time.
[2021-06-27 06:59] LABS: ALANINE AMINOTRANSFERASE 59 U/L (12-78); ALBUMIN 1.9 G/DL (3.4-5.0); ALBUMIN/GLOBULIN RATIO 0.7 (1.1-1.5); ALKALINE PHOSPHATASE 139 IU/L (46-116); ANION GAP 9 (8-16); ASPARTATE AMINO TRANSFERASE 42 U/L (10-37); BILIRUBIN,TOTAL 0.6 MG/DL (0.1-1.0); BLOOD UREA NITROGEN 4 MG/DL (7-18); CALCIUM 7.4 MG/DL (8.5-10.1); CHLORIDE 108 MMOL/L (99-107); GLUCOSE 94 MG/DL (70-104); MAGNESIUM 1.7 MG/DL (1.5-2.4); PHOSPHORUS 2.7 MG/DL (2.3-4.5); POTASSIUM 3.5 MMOL/L (3.5-5.1); SODIUM 145 MMOL/L (135-145); TOTAL CARBON DIOXIDE 28.4 MMOL/L (24-32); TOTAL PROTEIN 4.5 G/DL (6.4-8.2); eGFR > 90 ML/MIN
[2021-06-27] MEDS: K and/or MAG REPLACEMENT MC SCH (08:00)
[2021-06-27] MEDS: lamoTRIgine 100mg tablet PO SCH (08:29)
[2021-06-27] MEDS: multivitamins, therapeutics tablet PO SCH (08:29)
[2021-06-27] MEDS: levetiracetam 250mg tablet PO SCH (08:30)
[2021-06-27] MEDS: CefTRIAXone inj 1,000 MG in normal saline 100ml IV soln 100 ML IV SCH (08:30)
[2021-06-27] MEDS: pantoprazole 40MG/NS 100ML BAG 100 ML IV SCH (08:31)
[2021-06-27] MEDS: sertraline 50mg tablet PO SCH (08:31)
[2021-06-27] MEDS: heparin, porcine 5000 units/ml vial SQ SCH (08:32)
--- NOTE | 2021-06-27 08:35 | NUR ---
Resource RN Meds passed for primary RN Ignacio while on break Jennifer U-
[2021-06-27] MEDS: docusate sod 100mg capsule PO SCH (08:45)
--- NOTE | 2021-06-27 09:45 | NUR ---
Dr. Leon paged for patient hgb level was 8.0/27 yesterday and today drop to 7.0/23.4. patient denies any blood in the stool at time.
[2021-06-27 11:00] VITALS: BP 145/72
[2021-06-27 11:02] LABS: OCCULT BLOOD STOOL NEGATIVE (Neg)
[2021-06-27 11:32] LABS: HEMATOCRIT 25.2 % (35.0-45.0); HEMOGLOBIN 7.4 g/dl (12.0-16.0); MEAN CORPUSCULAR HEMOGLOBIN 22.6 PG (27.0-31.0); MEAN CORPUSCULAR HGB CONC 29.5 g/dL (33.0-36.5); MEAN CORPUSCULAR VOLUME 76.5 FL (78-98); MEAN PLATELET VOLUME 8.6 FL (7.4-10.4); PLATELET COUNT 385 X10'3 (140-440); RED BLOOD COUNT 3.29 X10'6 (4.20-5.60)
--- NOTE | 2021-06-27 13:50 | NUR ---
[facility], report given to nurse Christine.
[2021-06-27 15:00] VITALS: BP 154/76
--- NOTE | 2021-06-27 15:24 | NUR ---
PRESSURE ULCER EDUCATION: DEFINITION: A pressure ulcer is an area of skin that breaks down when you stay in one position too long. The constant pressure against the skin reduces the blood flow to that area and the affected tissue dies. CAUSES: "Being bedridden or in a wheelchair "Fragile skin "Having a chronic condition, such as diabetes or vascular disease "Inability to move certain parts of your body without assistance "Older age "Incontinence of urine or stool SYMPTOMS: "A reddened area that DOES NOT turn white when pressed on - this can be the beginning of a pressure ulcer "A blister, deep sore or a crater - these can be advanced pressure ulcers FIRST AID: "Relieve the pressure on this area "Keep the area clean and dry "Call your primary doctor if you see any of the above symptoms "DO NOT massage the area "DO NOT use a donut shaped or ring shaped pillow- these actually interfere with the blood flow and cause complications PREVENTION: "Check for pressure ulcers everyday "Change position at least every two hours to relieve pressure "Use items that help relieve pressure- pillows, sheepskin, foam padding, and powders. "Keep skin clean and dry "Eat healthy well balanced meals "Exercise daily IF YOU SEE ANY OF THESE SYMPTOMS WHILE IN THE HOSPITAL - TELL YOUR NURSE IMMEDIATELY. IF YOU SEE ANY OF THESE SYMPTOMS WHILE AT HOME OR HAVE ANY QUESTIONS OR CONCERNS ABOUT PRESSURE ULCERS - CALL YOUR PRIMARY DOCTOR IMMEDIATELY. Addendum: 06/27/21 at 1524 by Telma Fulton RN Amended: Links added.
--- NOTE | 2021-06-27 17:04 | NUR ---
patient picked up via w/c accompanied by 1 attendant. Patient alert and awake, no distress noted.
[2021-06-27] MEDS ORDERED: LORazepam 1 MG tablet PO PRN (22:30)
[2021-06-27] MEDS ORDERED: LORazepam 2 mg/ml vial IV PRN (22:30)
== END 2021-06-27 17:11 | DRG 642 ==
LOC: ER 17:02 → ED HOLD 22:38 → PCU 3S 06-24 00:05
PROVIDERS: ADMIT Family Medicine; ATTEND Internal Medicine
DX: E83.39 Other disorders of phosphorus metabolism (principal); E43 Unspecified severe protein-calorie malnutrition; N39.0 Urinary tract infection, site not specified; I50.32 Chronic diastolic (congestive) heart failure; G62.1 Alcoholic polyneuropathy; F10.20 Alcohol dependence, uncomplicated; I11.0 Hypertensive heart disease with heart failure; E83.42 Hypomagnesemia; F32.A Depression, unspecified; E87.6 Hypokalemia; B96.20 Unspecified Escherichia coli [E. coli] as the cause of diseases classified elsewhere; F41.9 Anxiety disorder, unspecified; W10.8XXA Fall (on) (from) other stairs and steps, initial encounter; R27.0 Ataxia, unspecified; G40.909 Epilepsy, unspecified, not intractable, without status epilepticus; G89.4 Chronic pain syndrome; Z60.2 Problems related to living alone; K57.90 Diverticulosis of intestine, part unspecified, without perforation or abscess without bleeding; K70.0 Alcoholic fatty liver; Z20.822 Contact with and (suspected) exposure to COVID-19; Z56.0 Unemployment, unspecified; Z68.24 Body mass index [BMI] 24.0-24.9, adult; Z87.11 Personal history of peptic ulcer disease; Z87.440 Personal history of urinary (tract) infections; Z90.710 Acquired absence of both cervix and uterus; Y93.89 Activity, other specified; Y92.89 Other specified places as the place of occurrence of the external cause; Y99.8 Other external cause status; Z88.0 Allergy status to penicillin; Z88.2 Allergy status to sulfonamides; Z81.8 Family history of other mental and behavioral disorders; Z79.899 Other long term (current) drug therapy; Y90.9 Presence of alcohol in blood, level not specified; D50.9 Iron deficiency anemia, unspecified
CPT/HCPCS: 36415; 70551; 80053; 80305; 80320; 81001; 82272; 82948; 83605; 83690; 83735; 83880; 84100; 84145; 84443; 85007; 85025; 85027; 85610; 85730; 87040; 87077; 87081; 87088; 87186; 87635; 93005; 96365; 96367; 97110; 97116; 97161; 97530; 99285; C9113; G0378; J0360; J0696; J1644; J2060; J2405; J3411; J3475; J3490; J7042; J7050; J7060

== ENCOUNTER 2021-09-02 12:43 | Emergency (ER) | payer MEDICARE, MEDICAID ==
[~2021-09-02] VITALS: Ht 162.6 cm; Wt 70.0 kg
[~2021-09-02 12:43] MED LIST changes: -CIPR-259 PO; -FOLI1TAB27 PO; -NALT50TA PO; -thiamine tablet PO
[2021-09-02 12:57] VITALS: BP 112/72
[2021-09-02 13:38] LABS: BASOPHILS # (AUTO) 0.1 X10'3 (0-0.2); BASOPHILS % (AUTO) 0.5 % (0-1); EOSINOPHILS % (AUTO) 0.3 % (0-6); HEMATOCRIT 39.1 % (35.0-45.0); HEMOGLOBIN 12.1 g/dl (12.0-16.0); LYMPHOCYTES # (AUTO) 1.7 X10'3 (1.1-4.8); LYMPHOCYTES % (AUTO) 14.3 % (21-51); MEAN CORPUSCULAR HEMOGLOBIN 23.6 PG (27.0-31.0); MEAN CORPUSCULAR HGB CONC 30.8 g/dL (33.0-36.5); MEAN CORPUSCULAR VOLUME 76.4 FL (78-98); MEAN PLATELET VOLUME 9.9 FL (7.4-10.4); MONOCYTES # (AUTO) 0.7 X10'3 (0-0.9); NEUTROPHILS # (AUTO) 9.5 X10'3 (1.8-7.7); NEUTROPHILS % (AUTO) 78.9 % (42-75); PLATELET COUNT 331 X10'3 (140-440); RED BLOOD COUNT 5.12 X10'6 (4.20-5.60); RED CELL DISTRIBUTION WIDTH 20.9 % (11.5-14.5); WHITE BLOOD COUNT 12.1 X10'3 (4.5-11.0)
[2021-09-02 13:47] LABS: ALANINE AMINOTRANSFERASE 44 U/L (12-78); ALBUMIN/GLOBULIN RATIO 0.8 (1.1-1.5); ALKALINE PHOSPHATASE 178 IU/L (46-116); ANION GAP 18 (8-16); ASPARTATE AMINO TRANSFERASE 79 U/L (10-37); BILIRUBIN,TOTAL 0.6 MG/DL (0.1-1.0); BLOOD UREA NITROGEN 11 MG/DL (7-18); BUN/CREATININE RATIO 16.7 (6.6-38.0); CALCIUM 8.4 MG/DL (8.5-10.1); CHLORIDE 100 MMOL/L (99-107); CREATININE 0.66 MG/DL (0.40-0.90); GLUCOSE 123 MG/DL (70-104); SODIUM 141 MMOL/L (135-145); TOTAL CARBON DIOXIDE 23.5 MMOL/L (24-32); TOTAL PROTEIN 6.7 G/DL (6.4-8.2); eGFR > 90 ML/MIN
[2021-09-02 13:57] LABS: POTASSIUM 2.2 MMOL/L (3.5-5.1)
[2021-09-02] MEDS ORDERED: folic acid 1mg/0.2ml inj IV ONE (14:10)
[2021-09-02] MEDS ORDERED: normal saline 1000ML IV soln IVB ONE (14:10)
[2021-09-02] MEDS ORDERED: magnesium 2GM in 50ml NS 50 ML IV ONE (14:10)
[2021-09-02] MEDS ORDERED: potassium Cl 10 mEq/100mL bag IV ONE (14:10)
[2021-09-02] MEDS ORDERED: thiamine inj. 100 MG in normal saline 100ml IV soln 100 ML IV ONE (14:10)
[2021-09-02 14:21] LABS: ANISOCYTOSIS 3+; HYPOCHROMASIA 1+; LARGE PLATELETS FEW; MICROCYTOSIS 1+; PLATELET ESTIMATE NORMAL; POIKILOCYTOSIS 1+
[2021-09-02] MEDS ORDERED: thiamine 100mg/ml 2ml inj. IV ONE (14:30)
== END 2021-09-02 15:29 | disposition left against medical advice (07) ==
LOC: ER 12:44
DX: S01.01XA Laceration without foreign body of scalp, initial encounter (principal); F10.20 Alcohol dependence, uncomplicated; E87.6 Hypokalemia; Y90.8 Blood alcohol level of 240 mg/100 ml or more; G62.9 Polyneuropathy, unspecified; G89.29 Other chronic pain; Z87.11 Personal history of peptic ulcer disease; Z87.440 Personal history of urinary (tract) infections; Z87.19 Personal history of other diseases of the digestive system; Z90.710 Acquired absence of both cervix and uterus; Z72.89 Other problems related to lifestyle; Z56.0 Unemployment, unspecified; Z88.0 Allergy status to penicillin; Z88.2 Allergy status to sulfonamides; Z88.8 Allergy status to other drugs, medicaments and biological substances; Z79.899 Other long term (current) drug therapy; W01.0XXA Fall on same level from slipping, tripping and stumbling without subsequent striking against object, initial encounter; Y93.89 Activity, other specified; Y92.89 Other specified places as the place of occurrence of the external cause; Y99.8 Other external cause status
CPT/HCPCS: 70450; 72125; 80053; 80320; 82948; 85008; 85025; 85610; 86885; 86900; 86901; 99284; 99285